=== PATIENT | male | born 1940 | race Caucasian/White ===

== ENCOUNTER 2021-01-16 12:35 | Inpatient (IN) | payer MEDICARE, SELFPAY ==
[2021-01-16] VITALS (7 sets, daily range): BP systolic 107–209; BP diastolic 57–99; PULSE 75–98; RESP 16–28; TEMP 37; O2SAT 97–99; BMI 25.7
--- NOTE | ~2021-01-16 | CT_ITS ---
EXAMINATION: CT ABDOMEN AND PELVIS WITHOUT CONTRAST CLINICAL INFORMATION: Hematuria. COMPARISON: None TECHNIQUE: Multidetector volumetric imaging was performed from the superior aspect of the liver through the pubic symphysis. Sagittal and coronal reformatted images were obtained on the technologist's workstation. This CT examination was performed using dose optimization techniques as appropriate, variously including the following: *Automated exposure control *Adjustment of mA and/or kV according to patient size (this includes techniques or standardized protocols for targeted exams where dose is matched to indication/reason for exam; i.e. extremities or head) *Use of iterative reconstruction technique DLP: 425.0 mGy-cm FINDINGS: LUNG BASES: The visualized lung bases are unremarkable. LIVER, GALLBLADDER, AND BILIARY TREE: Remarkable for hypodense intra-, perihepatic mass within the left lobe of the liver, measures 6.5 x 6.2 cm at its maximum anteroposterior by transverse dimension. Evaluation is limited on this nonenhanced study. The gallbladder is unremarkable with no evidence of radiopaque gallstones, gallbladder wall thickening, or obvious pericholecystic inflammatory changes. PANCREAS: Unremarkable. SPLEEN: Unremarkable. ADRENAL GLANDS: Left adrenal gland is thickened with Hounsfield value of -4, most consistent with lipid rich adrenal adenoma. Mild thickening of the right adrenal gland is also noted without any discrete mass. KIDNEYS AND URETERS: Both kidneys are remarkable for multiple subtle hyperdensity is seen in the region of the cortices bilaterally, consistent with nephrocalcinosis. Superimposed 1 cm punctate calcification is also noted within the medial superior calyx of the right kidney, consistent with a nonobstructing calculus. No evidence of any hydronephrosis or hydroureter on the right. The left-sided pelvicalyceal system and proximal to mid left ureter appear dilated, consistent with moderate hydroureteronephrosis likely secondary to obstruction at the ureterovesicular junction secondary to abnormal bladder. BLADDER: Markedly distended to the level of the umbilicus, shows heterogeneous hypodense mass filling of the lumen. Differential includes hyperdense neoplasm versus hemorrhage or combination thereof. Note is also made of large protruded superiormost part of the enlarged abnormal prostate. Circumferential diffuse urine bladder wall thickening is noted consistent with chronic outlet obstruction. GASTROINTESTINAL TRACT: The small and large bowel are unremarkable. The appendix is unremarkable. ABDOMINAL WALL: No significant hernia is appreciated. LYMPH NODES: Normal. VASCULAR: Unremarkable. PELVIC VISCERA: Markedly enlarged heterogeneous abnormal prostate protruding into the base of the bladder measures 8.5 x 8.2 cm. There is no evidence of any free fluid or free air present. OSSEOUS STRUCTURES: No suspicious focal lesion. CT/CT abdomen pelvis wo con IMPRESSION: 1. Abnormal noncontrast CT scan of the abdomen and pelvis, shows abnormal markedly enlarged heterogeneous prostate, protruding into the base of the bladder, causing urine bladder outlet obstruction. The bladder is also abnormal, markedly distended, projecting to the level of the umbilicus shows heterogeneous hyperdense mass filling of the almost entire lumen, may represent hemorrhagic mass versus hemorrhage or combination thereof. 2. 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 3. Thickening of the left adrenal gland with Hounsfield value of -4 most consistent with lipid rich adrenal adenoma. 4. Solid hypodense 6.5 cm mass within the left lobe of the liver, not optimally characterized. This critical result was discussed with Dr. Alarcon at 3:45 PM on 01/16/2021 and it was ascertained that the content and urgency of the report was understood at the time of direct communication.
--- NOTE | 2021-01-16 12:59 | ED.MALEGU ---
HPI - Male Genitourinary General Chief complaint: Urogenital-Male Stated complaint: URINARY PROBLEMS, ?UTI Time Seen by Provider: 01/16/21 12:59 Source: patient Limitations: no limitations History of Present Illness HPI Narrative: This is a 80-year-old male came in by ambulance after he noticed discomfort with urination today, feeling like he has to urinate more frequently, and noted blood in his urine. Patient denies any fever. He denies being on any medications. He denies any history of prostate enlargement. He denies any nausea vomiting. He has not had any abdominal or low back pain. Related Data Allergies Allergy/AdvReac Type Severity Reaction Status Date / Time No Known Allergies Allergy Verified 01/16/21 13:12 Review of Systems Review of Systems: Yes all other systems are reviewed and are negative Constitutional: Constitutional: Reports as per HPI and Denies fever(s) Eyes: Eyes: Reports as per HPI and Reports no additional eye complaints ENT: Reports system reviewed and no additional complaints, except as documented, Reports as per HPI, Denies nasal congestion, Denies nasal discharge and Denies sore throat Cardiovascular: Cardiovascular: Reports as per HPI, Denies chest pain and Denies dyspnea Respiratory: Respiratory: Reports as per HPI, Denies cough and Denies dyspnea Gastrointestinal: Gastrointestinal: Reports as per HPI, Denies abdominal pain, Denies diarrhea and Denies vomiting Genitourinary: Genitourinary: Reports as per HPI, Reports hematuria, Reports dysuria and Reports urinary frequency Musculoskeletal: Musculoskeletal: Reports no additional musculoskeletal complaints, Denies back pain and Denies numbness Integumentary/Breasts: Skin/Breast: Reports as per HPI and Denies rash Neurologic: Reports as per HPI, Denies focal weakness, Denies numbness and Denies Sensory deficit (Neuro) Psychiatric: Psychiatric: Reports no additional psychiatric complaints and Reports as per HPI Endocrine: Endocrine: Reports no additional endocrine complaints and Reports as per HPI Hematologic/Lymphatic: Hematologic/Lymphatic: Reports no additional hematologic/lymphatic complaints, Reports as per HPI and Reports other (No peripheral edema) [facility] Family History Family History (Updated 01/16/21 @ 18:01 by Eliane Buckner NP) Brother Prostate cancer Social History Social History (Updated 01/16/21 @ 18:02 by Eliane Buckner NP) Household Members: Family Patient Tobacco Use Status: Never used Tobacco Advance Directives: No Advance Directives Information Provided: Yes Physical Exam Vital Signs: Vital Signs: Last Vital Signs Temp 98.6 F 01/16/21 14:09 Pulse 97 01/16/21 16:56 Resp 16 01/16/21 16:56 BP 124/80 01/16/21 16:56 Pulse Ox 98 01/16/21 16:56 Body Mass Index 25.7 Const: General: cooperative, no acute distress and alert Orientation/consciousness: patient oriented x3 HENMT: Head: Yes normal to inspection Eyes: General: appearance normal, both eyes and all related structures Eyelids: Yes eyelids normal Conjunctivae: conjunctivae normal Pupils: Equal, round and reactive pupils present Neck: Neck: Yes normal visual inspection and Yes supple Chest: Chest palpation & inspection: normal inspection of the chest Resp: Effort & Inspection: normal respiratory effort Auscultation: clear to auscultation bilaterally Cardio: Rate: regular rate Rhythm: regular rhythm Heart sounds: S1 normal heart sound present, S2 normal heart sound present, no gallops, no murmurs and no rubs GI: Palpation (GI): Soft to palpation, nontender and Other GI palpation findings present (Non-distended) Auscultation: normal bowel sounds Skin: General skin exam: no rashes or lesions noted Neuro: General: patient oriented x3, no focal motor deficits and CN's II-XI intact bilaterally Cranial nerves: Yes Equal, round and reactive pupils present Cognition (Neuro): normal cognition Motor exam (neuro): 5/5 motor strength present throughout Sensory Exam: No Sensory deficit (Neuro) Extrem: General: Yes normal to inspection and Yes no pedal edema Psych: Appearance: grossly normal Affect: normal affect MDM - Male Genitourinary MDM Narrative Medical decision making narrative: Patient with acute gross hematuria and urinary discomfort. Patient was able to get some urine out small amounts. Patient reported no prior history of prostate problems. CT scan did show a prostate with probable mass causing bladder outlet obstruction, as well as a possible hepatic mass, possible metastatic. Patient's bladder was distended with heterogeneous material. A 3 way catheter was ordered and bladder irrigation was ordered. Nurses were unable to pass a catheter. I placed a 22 Arabic coude catheter and there was brief return of bloody urine however the catheter would not flush and no further draining occurred. For this reason it was removed. Dr. Newberry of Urology was consulted prior to realizing that the catheter was apparently nonfunctional. He agreed with admission and continuous bladder irrigation, NPO, will evaluate the patient tomorrow morning. Dr. De Jesus, another emergency physician in the department, elected to place a catheter with guidance over a wire. He was able to do this and they were subsequently was large amount of bloody urine draining. The patient was typed and screened, and repeat H&H has been ordered. The patient is being admitted to the hospitalist service, has been accepted by Dr. Madrigal. The patient was covered for UTI with Rocephin 1 g IV, also was hydrated with normal saline 1 L IV. Lab Data Attestation: I reviewed the patient's lab results. Result diagrams: 01/16/21 13:22 01/16/21 13:22 Labs: Lab Results 01/16/21 01/16/21 01/16/21 Range/Units 13:22 13:22 13:22 WBC 19.5 H (4.8-10.8) X10*3/uL RBC 3.37 L (4.60-5.80) X10*6/uL Hgb 10.4 L (14.0-18.0) g/dl Hct 30.8 L (42-52) % MCV 91.4 (80-98) fL MCH 30.9 (27.0-33.0) pg MCHC 33.8 (31.0-36.0) g/dl RDW 14.2 (11.0-16.0) % Plt Count 283 (160-400) X10*3/uL MPV 9.4 (9.4-12.4) fL Immature Gran % (Auto) 0.7 H (0.0-0.4) % Neut % (Auto) 86.6 H (45-73) % Lymph % (Auto) 7.1 L (20-40) % [place] % (Auto) 5.4 (2-11) % Eos % (Auto) 0.0 (0-4) % Baso % (Auto) 0.2 (0-2) % Lymph # (Auto) 1.4 (1.2-4.9) X10*3/uL [place] # (Auto) 1.1 (0.1-1.2) X10*3/uL Eos # (Auto) 0.0 (0.0-0.4) X10*3/uL Baso # (Auto) 0.0 (0.0-0.2) X10*3/uL Abs Immat Gran (auto) 0.13 H (0.00-0.03) X10*3/uL Absolute Neuts (auto) 16.9 H (2.0-8.3) X10*3/uL Absolute Nucleated RBC 0.000 (0.0-0.012) X10*3/uL Nucleated RBC % (auto) 0.0 (0.0-0.2) /100WBC PT (9.9-13.0) SEC INR (0.9-1.1) APTT (24.1-38.0) SEC Sodium 135 (135-145) mmol/L Potassium 4.4 (3.3-5.1) mmol/L Chloride 106 (96-108) mmol/L Carbon Dioxide 18 L (22-29) mmol/L Anion Gap 15 (12-20) BUN 29 H (9-16) mg/dL Creatinine 1.18 (0.5-1.4) mg/dL Estim Creat Clear Calc 43.2 Estimated GFR 60 Random Glucose 181 H (60-115) mg/dL Calcium 9.3 (8.4-10.2) mg/dL Total Bilirubin 0.5 (0.0-1.0) mg/dL AST 21 (5-37) U/L ALT 19 (0-40) U/L Alkaline Phosphatase 72 (39-117) U/L Total Protein 6.1 L (6.5-8.0) g/dL Albumin 3.9 (3.5-5.0) g/dL Urine Color RED Urine Appearance TURBID Urine pH 7.0 (5.0-8.0) Ur Specific [place] 1.020 (1.005-1.025) Urine Protein 3+ H (NEG-TRACE) MG/DL Urine Glucose (UA) 100 H (NEG) MG/DL Urine Ketones 5 (NEG) MG/DL Urine Blood 3+ H (NEG) Urine Nitrite POS H (NEG) Ur Leukocyte Esterase NEG (NEG) Urine RBC TNTC H (0) /HPF Urine WBC 5-9 H (0-4) /HPF Ur Squamous Epith Cells NONE /LPF Urine Bacteria TRACE /LPF COVID-19 (MANDA) (Negative) COVID-19 Clin Com 01/16/21 01/16/21 Range/Units 17:03 17:03 WBC (4.8-10.8) X10*3/uL RBC (4.60-5.80) X10*6/uL Hgb (14.0-18.0) g/dl Hct (42-52) % MCV (80-98) fL MCH (27.0-33.0) pg MCHC (31.0-36.0) g/dl RDW (11.0-16.0) % Plt Count (160-400) X10*3/uL MPV (9.4-12.4) fL Immature Gran % (Auto) (0.0-0.4) % Neut % (Auto) (45-73) % Lymph % (Auto) (20-40) % [place]ane % (Auto) (2-11) % Eos % (Auto) (0-4) % Baso % (Auto) (0-2) % Lymph # (Auto) (1.2-4.9) X10*3/uL [place] # (Auto) (0.1-1.2) X10*3/uL Eos # (Auto) (0.0-0.4) X10*3/uL Baso # (Auto) (0.0-0.2) X10*3/uL Abs Immat Gran (auto) (0.00-0.03) X10*3/uL Absolute Neuts (auto) (2.0-8.3) X10*3/uL Absolute Nucleated RBC (0.0-0.012) X10*3/uL Nucleated RBC % (auto) (0.0-0.2) /100WBC PT 13.2 H (9.9-13.0) SEC INR 1.2 H (0.9-1.1) APTT 29.6 (24.1-38.0) SEC Sodium (135-145) mmol/L Potassium (3.3-5.1) mmol/L Chloride (96-108) mmol/L Carbon Dioxide (22-29) mmol/L Anion Gap (12-20) BUN (9-16) mg/dL Creatinine (0.5-1.4) mg/dL Estim Creat Clear Calc Estimated GFR Random Glucose (60-115) mg/dL Calcium (8.4-10.2) mg/dL Total Bilirubin (0.0-1.0) mg/dL AST (5-37) U/L ALT (0-40) U/L Alkaline Phosphatase (39-117) U/L Total Protein (6.5-8.0) g/dL Albumin (3.5-5.0) g/dL Urine Color Urine Appearance Urine pH (5.0-8.0) Ur Specific [place] (1.005-1.025) Urine Protein (NEG-TRACE) MG/DL Urine Glucose (UA) (NEG) MG/DL Urine Ketones (NEG) MG/DL Urine Blood (NEG) Urine Nitrite (NEG) Ur Leukocyte Esterase (NEG) Urine RBC (0) /HPF Urine WBC (0-4) /HPF Ur Squamous Epith Cells /LPF Urine Bacteria /LPF COVID-19 (MANDA) Negative (Negative) COVID-19 Clin Com See Note Imaging Data CT of the abdomen and pelvis without IV contrast: Radiologist's impression: IMPRESSION: 1. Abnormal noncontrast CT scan of the abdomen and pelvis, shows abnormal markedly enlarged heterogeneous prostate, protruding into the base of the bladder, causing urine bladder outlet obstruction. The bladder is also abnormal, markedly distended, projecting to the level of the umbilicus shows heterogeneous hyperdense mass filling of the almost entire lumen, may represent hemorrhagic mass versus hemorrhage or combination thereof. 2. 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 3. Thickening of the left adrenal gland with Hounsfield value of -4 most consistent with lipid rich adrenal adenoma. 4. Solid hypodense 6.5 cm mass within the left lobe of the liver, not optimally characterized. Discharge Plan Discharge Clinical Impression: Hematuria, Acute urinary retention, Prostate mass Patient Disposition: Admitted As Inpatient
[2021-01-16] MEDS: 0.9 % Sodium Chloride 500 ML IV (13:23)
[2021-01-16 13:32] LABS: MANUAL DIFF FLAG NO
[2021-01-16 13:35] LABS: Basophils Percent Auto 0.2 % (0-2); Hematocrit 30.8 % (42-52); Hemoglobin 10.4 g/dl (14.0-18.0); Imm Gran Abs Auto 0.13 X10*3/uL (0.00-0.03); Imm Gran Pct Auto 0.7 % (0.0-0.4); Lymphocytes Absolute Auto 1.4 X10*3/uL (1.2-4.9); Lymphocytes Percent Auto 7.1 % (20-40); Mean Corpuscular HGB Conc 33.8 g/dl (31.0-36.0); Mean Corpuscular Hemoglobin 30.9 pg (27.0-33.0); Mean Corpuscular Volume 91.4 fL (80-98); Mean Platelet Volume 9.4 fL (9.4-12.4); Monocytes Absolute Auto 1.1 X10*3/uL (0.1-1.2); Monocytes Percent Auto 5.4 % (2-11); Neutrophils Absolute Auto 16.9 X10*3/uL (2.0-8.3); Neutrophils Percent Auto 86.6 % (45-73); Platelet Count 283 X10*3/uL (160-400); Red Blood Count 3.37 X10*6/uL (4.60-5.80); Red Cell Distribution Width 14.2 % (11.0-16.0); White Blood Count 19.5 X10*3/uL (4.8-10.8)
[2021-01-16 13:46] LABS: Glucose Urine UA 100 MG/DL (NEG); Leukocyte Esterase Urine NEG (NEG); Nitrite Urine POS (NEG); UACC Culture Trigger YES; Urine Blood 3+ (NEG); Urine Ketones 5 MG/DL (NEG); Urine Protein 3+ MG/DL (NEG-TRACE)
[2021-01-16 13:48] LABS: Appearance Urine TURBID; Color Urine RED
[2021-01-16 13:55] LABS: Bacteria Urine TRACE /LPF; RBC Urine TNTC /HPF (0)
[2021-01-16 14:00] LABS: Alanine Aminotransferase 19 U/L (0-40); Albumin Level 3.9 g/dL (3.5-5.0); Alkaline Phosphatase 72 U/L (39-117); Anion Gap 15 (12-20); Aspartate Amino Transferase 21 U/L (5-37); Bilirubin Total 0.5 mg/dL (0.0-1.0); Blood Urea Nitrogen 29 mg/dL (9-16); Calcium 9.3 mg/dL (8.4-10.2); Carbon Dioxide 18 mmol/L (22-29); Chloride 106 mmol/L (96-108); Creatinine Clr Calc Pharmacy 43.2; Estimated Glomerular Filt Rate 60; Glucose Random 181 mg/dL (60-115); Potassium 4.4 mmol/L (3.3-5.1); Sodium 135 mmol/L (135-145); Total Protein 6.1 g/dL (6.5-8.0)
[2021-01-16] MEDS: cefTRIAXone sodium 1 GM in 0.9 % Sodium Chloride 50 ML IV (14:38)
--- NOTE | 2021-01-16 16:49 | PM.EVENT ---
Event Note Date of Service: 01/16/21 Event Note: Patient seen and examined independently and was present during barcenas portion of E/M service. Agree with midlevel's history, physical, assessment, and plan. 80M with hematuria hematuria suspicious for prostate ca saucedo,
[2021-01-16 17:20] LABS: INTERNATIONAL NORM RATIO 1.2 (0.9-1.1); Prothrombin Time 13.2 SEC (9.9-13.0)
--- NOTE | 2021-01-16 17:21 | P.HPHOSP_ITS ---
History of Present Illness Date of Service: 01/16/21 Chief Complaint: Bloody urine 80 year old man presenting with increased blood in his urine that has been ongoing for the last week. He reported that he had something similar last year with dysuria, frequency and hematuria but he took something over the counter and it went away. This time however, the symptoms persisted and he decided to come to the ER to be evaluated. He has not seen a doctor in over 50 years and takes no medication. 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 He denied recent fever, chills, nausea, vomiting, diarrhea. Abdominal CT scan of the abdomen and pelvis, shows abnormal markedly enlarged heterogeneous prostate, protruding into the base of the bladder, causing urine bladder outlet obstruction. Hyperdense mass filling of the almost entire lumen, may represent hemorrhagic mass versus hemorrhage. Solid hypodense 6.5 cm mass within the left lobe of the liver, He was noted to have leukocytosis, no fever. Vital signs are stable. He was given rocephin. CBI was placed in the ED. He will be admitted for further management of hematuria, UTI Review of Systems Review of Systems: Denies any recent fever chills or decrease in appetite respiratory denies any shortness of breath coverage production cardiovascular is adjustment of any PND or edema gastrointestinal denies any dysphagia abdominal pain nausea vomiting or diarrhea genitourinary see HPI musculoskeletal denies any joint pain or swelling neuropsych denies any weakness or seizures all other systems reviewed are negative [facility] Cognitive capacity: Reports no medical problems Family History (Updated 01/16/21 @ 18:01 by Eliane Buckner NP) Brother Prostate cancer Social History (Updated 01/16/21 @ 18:02 by Eliane Buckner NP) Household Members: Family Patient Tobacco Use Status: Never used Tobacco Advance Directives: No Advance Directives Information Provided: Yes Meds Allergies Allergy/AdvReac Type Severity Reaction Status Date / Time No Known Allergies Allergy Verified 01/16/21 13:12 Physical Exam Vital Signs and Narrative: Vital Signs: Last Vital Signs Temp 98.6 F 01/16/21 14:09 Pulse 97 01/16/21 16:56 Resp 16 01/16/21 16:56 BP 124/80 01/16/21 16:56 Pulse Ox 98 01/16/21 16:56 Body Mass Index 25.7 Appearing in no acute distress head is normocephalic atraumatic eyes pupils are PERRLA sclera is anicteric mouth throat mucous membranes are intact and moist neck is supple no lymphadenopathy, no JVD noted lung sounds are clear to auscultation heart regular rate rhythm, clear S1, S2 positive bowel sounds, abdomen is soft, nontender neuro patient is alert x3, no focal deficits Results Labs CBC and Chem 7: 01/16/21 13:22 01/16/21 13:22 Labs: Laboratory Results - last 24 hr 01/16/21 01/16/21 01/16/21 13:22 13:22 13:22 MCV 91.4 MCH 30.9 MCHC 33.8 RDW 14.2 Plt Count 283 MPV 9.4 Immature Gran % (Auto) 0.7 H Neut % (Auto) 86.6 H Lymph % (Auto) 7.1 L [place] % (Auto) 5.4 Eos % (Auto) 0.0 Baso % (Auto) 0.2 Lymph # (Auto) 1.4 [place] # (Auto) 1.1 Eos # (Auto) 0.0 Baso # (Auto) 0.0 Abs Immat Gran (auto) 0.13 H Absolute Neuts (auto) 16.9 H Absolute Nucleated RBC 0.000 Nucleated RBC % (auto) 0.0 Anion Gap 15 Estim Creat Clear Calc 43.2 Estimated GFR 60 Random Glucose 181 H Calcium 9.3 Total Bilirubin 0.5 AST 21 ALT 19 Alkaline Phosphatase 72 Total Protein 6.1 L Albumin 3.9 Urine Color RED Urine Appearance TURBID Urine pH 7.0 Ur Specific [place] 1.020 Urine Protein 3+ H Urine Glucose (UA) 100 H Urine Ketones 5 Urine Blood 3+ H Urine Nitrite POS H Ur Leukocyte Esterase NEG Urine RBC TNTC H Urine WBC 5-9 H Ur Squamous Epith Cells NONE Urine Bacteria TRACE Imaging Radiologist's Impressions: Impressions Abdomen/Pelvis CT 01/16/21 13:12 IMPRESSION: 1. Abnormal noncontrast CT scan of the abdomen and pelvis, shows abnormal markedly enlarged heterogeneous prostate, protruding into the base of the bladder, causing urine bladder outlet obstruction. The bladder is also abnormal, markedly distended, projecting to the level of the umbilicus shows heterogeneous hyperdense mass filling of the almost entire lumen, may represent hemorrhagic mass versus hemorrhage or combination thereof. 2. 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 3. Thickening of the left adrenal gland with Hounsfield value of -4 most consistent with lipid rich adrenal adenoma. 4. Solid hypodense 6.5 cm mass within the left lobe of the liver, not optimally characterized. This critical result was discussed with Dr. Alarcon at 3:45 PM on 01/16/2021 and it was ascertained that the content and urgency of the report was understood at the time of direct communication. Assessment and Plan (1) Hematuria: Status: Acute 80 year old man admitted with hematuria secondary to prostate mass. A bdominal CT scan of the abdomen and pelvis, shows abnormal markedly enlarged heterogeneous prostate, protruding into the base of the bladder, causing urine bladder outlet obstruction. Hyperdense mass filling of the almost entire lumen, may represent hemorrhagic mass versus hemorrhage. Solid hypodense 6.5 cm mass within the left lobe of the liver, Hematuria. Possibly secondary to prostate mass vs hemorrhage CBI Urology to follow NPO Follow HH closely Leukocytosis . Secondary to UTI Rocephin follow urine cx Supratherapeutic INR. 1.2. Recheck PT INR in the morning continues to be elevated may need vitamin K in light of hematuria DVT prophylaxis with kathleen soto Attending Dr. Madrigal Full code Quality Stroke Does the patient have a stroke diagnosis?: No VTE Prior VTE?: No VTE Risk Level:: Medical - moderate - high VTE Device Contraindication: N/A - Device Ordered VTE Drug Contraindication: Treatment Not Indicated
[2021-01-16 17:23] LABS: Partial Thromboplastin Time 29.6 SEC (24.1-38.0)
[2021-01-16 17:38] LABS: COVID-19 Test Negative (Negative)
--- NOTE | 2021-01-16 18:42 | PC.NURSE ---
Dr. De Jesus placed [address] saucedo, large amounts of blood approx 300 ml blood noted, large clots. CBI initiated and draining light red blood. PT denies complaints or needs.
[2021-01-16 19:07] LABS: Hematocrit 27.4 % (42-52); Hemoglobin 9.4 g/dl (14.0-18.0)
--- NOTE | 2021-01-16 19:07 | PC.NURSE ---
3L given at this time, 4L of urine voided
--- NOTE | 2021-01-16 20:17 | PC.NURSE ---
6L given through CBI, 7.5L ouput.
[2021-01-16 20:46] LABS: Hematocrit 26.7 % (42-52); Hemoglobin 9.3 g/dl (14.0-18.0)
--- NOTE | 2021-01-16 22:56 | PC.NURSE ---
9L given through continuous irrigation, 10.5L urinary output.
[2021-01-17] VITALS (14 sets, daily range): BP systolic 102–160; BP diastolic 51–76; PULSE 61–97; RESP 15–20; TEMP 36.2–37.3; O2SAT 96–100; BMI 21.9; BMI 23.8
--- NOTE | 2021-01-17 00:24 | PC.NURSE ---
2500ml eptied from bag. report given to rn, pt ready for transport.
--- NOTE | 2021-01-17 01:14 | PC.NURSE ---
bag #10 in or 3000ml and 1000 ml out from saucedo.
[2021-01-17] MEDS: 0.9 % Sodium Chloride Flush 3 ML SYRINGE IVFLUSH ×3 (03:18→17:14)
[2021-01-17 06:50] LABS: Hematocrit 25.4 % (42-52); Hemoglobin 8.5 g/dl (14.0-18.0); Mean Corpuscular HGB Conc 33.5 g/dl (31.0-36.0); Mean Corpuscular Volume 92.7 fL (80-98); Mean Platelet Volume 9.6 fL (9.4-12.4); Platelet Count 235 X10*3/uL (160-400); Red Blood Count 2.74 X10*6/uL (4.60-5.80); Red Cell Distribution Width 14.7 % (11.0-16.0); White Blood Count 23.8 X10*3/uL (4.8-10.8)
[2021-01-17 07:09] LABS: INTERNATIONAL NORM RATIO 1.1 (0.9-1.1); Prothrombin Time 12.5 SEC (9.9-13.0)
[2021-01-17 07:16] LABS: Estimated Average Glucose 91 mg/dL; Hemoglobin A1c % 4.8 %
[2021-01-17 07:17] LABS: Alanine Aminotransferase 15 U/L (0-40); Albumin Level 3.5 g/dL (3.5-5.0); Alkaline Phosphatase 64 U/L (39-117); Aspartate Amino Transferase 19 U/L (5-37); Bilirubin Direct 0.2 mg/dL (0.0-0.5); Bilirubin Total 0.5 mg/dL (0.0-1.0); Total Protein 5.6 g/dL (6.5-8.0)
[2021-01-17 07:21] LABS: Anion Gap 16 (12-20); Blood Urea Nitrogen 28 mg/dL (9-16); Calcium 8.6 mg/dL (8.4-10.2); Carbon Dioxide 19 mmol/L (22-29); Chloride 107 mmol/L (96-108); Cholesterol 155 mg/dL; Creatinine Clr Calc Pharmacy 58.5; Estimated Glomerular Filt Rate > 60; Glucose Random 112 mg/dL (60-115); HDL Cholesterol 40 mg/dL; LDL Cholesterol Calculated 101 mg/dl; Potassium 4.8 mmol/L (3.3-5.1); Sodium 137 mmol/L (135-145); Triglycerides 70 mg/dL
[2021-01-17 07:39] LABS: SLIDE REVIEW MANUAL DIFF; TSH reflex Free T4 0.35 uIU/mL (0.32-4.0)
[2021-01-17 07:42] LABS: Band Neutrophils Percent 0 % (3-5); Lymphocytes Percent Manual 4 % (20-40); Monocytes Absolute Manual 2.4 X10*3/uL (0.0-1.2); Monocytes Percent Manual 10 % (2-11); Neutrophils Absolute Manual 20.5 X10*3/uL (2.2-7.9); Neutrophils Percent Manual 86 % (45-73)
[2021-01-17 07:44] LABS: Burr Cells 1+ (0-2) /OIF; Platelet Estimate NORMAL (NORMAL); Platelet Morphology Comment NORMAL; RBC Morphology NOTED
[2021-01-17] MEDS: cefTRIAXone sodium 1 GM in 0.9 % Sodium Chloride 50 ML IV (09:10)
--- NOTE | 2021-01-17 09:27 | MHC.CM.PN ---
IMM 01/17/21 Male 80 DX Hematuria. He lives with his Mother. He is independent all functional mobility. He does not have a PCP[place] [facility] [place]. A HCP has been completed and on file. DP home no services family will provide transportation. CM will follow for assessment a change in needs at [place].
--- NOTE | 2021-01-17 11:10 | PM.UROCN ---
History of Present Illness Consult details Consult date: 01/17/21 Narrative: Torito is a 80-year-old male. Admitted through the emergency room on Sunday. Initial presentation with 1 week of intermittent hematuria. Not associated with fever, chills Had noticed gradual weakening of stream over the prior number of months Never had prostate management previously Has not seen a doctor in [address] imaging reviewed Bladder with bladder wall thickening and heterogeneous fluid within bladder likely representing hematuria. Large protuberant prostate. Discussion with Torito and recommendation for cystoscopy, clot evacuation, possible prostate procedure. Questions were answered. He would like to proceed. Has received antibiotics for 48 hours Review of Systems Constitutional: Constitutional: Denies chills and Denies fever(s) Cardiovascular: Cardiovascular: Reports no additional cardiovascular complaints and Denies syncope Respiratory: Respiratory: Denies cough Gastrointestinal: Gastrointestinal: Denies abdominal pain and Denies heartburn Genitourinary: Genitourinary: Reports as per HPI and Denies change in libido Neurologic: Denies syncope Psychiatric: Psychiatric: Denies change in libido Endocrine: Endocrine: Denies change in libido [facility] Past Medical History Medical History Gluten free diet Family History Family History (Updated 01/16/21 @ 18:01 by Eliane Buckner NP) Brother Prostate cancer Social History Social History (Updated 01/16/21 @ 18:02 by Eliane Buckner NP) Household Members: Family Housing: House Do you presently have visiting nurse or other home services: No Patient Tobacco Use Status: Former Tobacco user Quit Date: when pt was [age] yrs old Years Smoked: 3 Use of substances other than those prescribed or required for medical reasons: No Currently Displaying Signs/Symptoms of Drug Intoxication Withdrawal: No Any prior treatment program specific to substance use: No Have you been hit, kicked, punched, or otherwise hurt by someone within the past year? If so, by whom?: No Do you feel safe in your current relationship?: No Current Relationship Is there a partner from a previous relationship who is making you feel unsafe now?: No Are you made to feel afraid or neglected: No Advance Directives: No Advance Directives Information Provided: Yes Advance Directives on File: No Do you have thoughts of harming others: None Do you have a plan to hurt others: No Plan Recently lost weight without trying: No Poor oral hygiene: No service: No Current occupational status: retired Meds Allergies Allergy/AdvReac Type Severity Reaction Status Date / Time No Known Allergies Allergy Verified 01/16/21 13:12 Active Medications: Current Medications Generic Name Dose Route Start Last Admin Trade Name Freq PRN Reason Stop Dose Admin Acetaminophen 650 mg 01/16/21 18:05 Acetaminophen 325 Mg Tablet PO Q6H PRN Pain, Mild (Pain Scale 1-3) Ceftriaxone Sodium 1 gm/ 50 mls @ 100 mls/hr 01/17/21 08:15 01/17/21 09:50 Sodium Chloride IV Infused Q24H RAY Infusion Ondansetron HCl 4 mg 01/16/21 18:05 Ondansetron Hcl 4 Mg/2 Ml Vial IVPUSH Q8H PRN Nausea and Vomiting Sodium Chloride 3 ml 01/17/21 00:00 01/17/21 07:30 0.9 % Sodium Chloride Flush 3 Ml Syringe IVFLUSH 3 ml QSHIFT RAY Administration Physical Exam Vital Signs: Vital Signs: Last Vital Signs Temp 97.9 F 01/17/21 07:22 Pulse 97 01/17/21 07:22 Resp 20 01/17/21 07:22 BP 160/72 H 01/17/21 07:22 Pulse Ox 98 01/17/21 07:22 Body Mass Index 23.8 Const: General: cooperative, healthy appearing, comfortable and no acute distress Orientation/consciousness: patient oriented x3 HENMT: Face and sinus: Yes normal facial exam Mouth: moist mucous membranes Neck: Neck: Yes normal visual inspection, Yes full ROM and Yes trachea midline Chest: Chest palpation & inspection: normal inspection of the chest Resp: Effort & Inspection: normal respiratory effort, able to speak in complete sentences and no respiratory distress GI: Inspection: Yes normal to inspection Back/Spine/Pelvis: Cervical Spine: normal cervical lordosis Thoracic/Lumbar Spine: thoracic and lumbar spine normal to inspection Skin: General skin exam: no rashes or lesions noted Neuro: General: patient oriented x3, gait normal, tone normal and moves all extremities Extrem: General: Yes normal to inspection and Yes capillary refill normal Results Labs Result diagrams: 01/17/21 05:16 01/17/21 05:16 Labs: Abnormal lab results 01/16/21 01/16/21 01/16/21 Range/Units 13:22 13:22 13:22 WBC 19.5 H (4.8-10.8) X10*3/uL RBC 3.37 L (4.60-5.80) X10*6/uL Hgb 10.4 L (14.0-18.0) g/dl Hct 30.8 L (42-52) % Immature Gran % (Auto) 0.7 H (0.0-0.4) % Neut % (Auto) 86.6 H (45-73) % Lymph % (Auto) 7.1 L (20-40) % Abs Immat Gran (auto) 0.13 H (0.00-0.03) X10*3/uL Absolute Neuts (auto) 16.9 H (2.0-8.3) X10*3/uL Neutrophils % (Manual) (45-73) % Band Neutrophils % (3-5) % Lymphocytes % (Manual) (20-40) % Abs Neuts (Manual) (2.2-7.9) X10*3/uL Monocytes # (Manual) (0.0-1.2) X10*3/uL PT (9.9-13.0) SEC INR (0.9-1.1) Carbon Dioxide 18 L (22-29) mmol/L BUN 29 H (9-16) mg/dL Random Glucose 181 H (60-115) mg/dL Total Protein 6.1 L (6.5-8.0) g/dL Urine Protein 3+ H (NEG-TRACE) MG/DL Urine Glucose (UA) 100 H (NEG) MG/DL Urine Blood 3+ H (NEG) Urine Nitrite POS H (NEG) Urine RBC TNTC H (0) /HPF Urine WBC 5-9 H (0-4) /HPF 01/16/21 01/16/21 01/16/21 Range/Units 17:03 18:51 20:40 WBC (4.8-10.8) X10*3/uL RBC (4.60-5.80) X10*6/uL Hgb 9.4 L 9.3 L (14.0-18.0) g/dl Hct 27.4 L 26.7 L (42-52) % Immature Gran % (Auto) (0.0-0.4) % Neut % (Auto) (45-73) % Lymph % (Auto) (20-40) % Abs Immat Gran (auto) (0.00-0.03) X10*3/uL Absolute Neuts (auto) (2.0-8.3) X10*3/uL Neutrophils % (Manual) (45-73) % Band Neutrophils % (3-5) % Lymphocytes % (Manual) (20-40) % Abs Neuts (Manual) (2.2-7.9) X10*3/uL Monocytes # (Manual) (0.0-1.2) X10*3/uL PT 13.2 H (9.9-13.0) SEC INR 1.2 H (0.9-1.1) Carbon Dioxide (22-29) mmol/L BUN (9-16) mg/dL Random Glucose (60-115) mg/dL Total Protein (6.5-8.0) g/dL Urine Protein (NEG-TRACE) MG/DL Urine Glucose (UA) (NEG) MG/DL Urine Blood (NEG) Urine Nitrite (NEG) Urine RBC (0) /HPF Urine WBC (0-4) /HPF 01/17/21 01/17/21 01/17/21 Range/Units 05:16 05:16 05:16 WBC 23.8 H (4.8-10.8) X10*3/uL RBC 2.74 L (4.60-5.80) X10*6/uL Hgb 8.5 L (14.0-18.0) g/dl Hct 25.4 L (42-52) % Immature Gran % (Auto) (0.0-0.4) % Neut % (Auto) (45-73) % Lymph % (Auto) (20-40) % Abs Immat Gran (auto) (0.00-0.03) X10*3/uL Absolute Neuts (auto) (2.0-8.3) X10*3/uL Neutrophils % (Manual) 86 H (45-73) % Band Neutrophils % 0 L (3-5) % Lymphocytes % (Manual) 4 L (20-40) % Abs Neuts (Manual) 20.5 H (2.2-7.9) X10*3/uL Monocytes # (Manual) 2.4 H (0.0-1.2) X10*3/uL PT (9.9-13.0) SEC INR (0.9-1.1) Carbon Dioxide 19 L (22-29) mmol/L BUN 28 H (9-16) mg/dL Random Glucose (60-115) mg/dL Total Protein 5.6 L (6.5-8.0) g/dL Urine Protein (NEG-TRACE) MG/DL Urine Glucose (UA) (NEG) MG/DL Urine Blood (NEG) Urine Nitrite (NEG) Urine RBC (0) /HPF Urine WBC (0-4) /HPF Short CBC 01/16/21 01/16/21 01/16/21 Range/Units 13:22 18:51 20:40 WBC 19.5 H (4.8-10.8) X10*3/uL Hgb 10.4 L 9.4 L 9.3 L (14.0-18.0) g/dl Hct 30.8 L 27.4 L 26.7 L (42-52) % Plt Count 283 (160-400) X10*3/uL 01/17/21 Range/Units 05:16 WBC 23.8 H (4.8-10.8) X10*3/uL Hgb 8.5 L (14.0-18.0) g/dl Hct 25.4 L (42-52) % Plt Count 235 (160-400) X10*3/uL BMP 01/16/21 01/17/21 13:22 05:16 Sodium 135 137 Potassium 4.4 4.8 Chloride 106 107 Carbon Dioxide 18 L 19 L BUN 29 H 28 H Creatinine 1.18 0.87 Calcium 9.3 8.6 D Liver Function 01/16/21 01/17/21 Range/Units 13:22 05:16 Total Bilirubin 0.5 0.5 (0.0-1.0) mg/dL Direct Bilirubin 0.2 (0.0-0.5) mg/dL AST 21 19 (5-37) U/L ALT 19 15 (0-40) U/L Alkaline Phosphatase 72 64 (39-117) U/L Albumin 3.9 3.5 (3.5-5.0) g/dL Urine 01/16/21 Range/Units 13:22 Urine Color RED Urine Appearance TURBID Urine pH 7.0 (5.0-8.0) Ur Specific [place] 1.020 (1.005-1.025) Urine Protein 3+ H (NEG-TRACE) MG/DL Urine Glucose (UA) 100 H (NEG) MG/DL All other labs normal. Assessment and Plan (1) Hematuria: Status: Acute (2) Acute urinary retention: Status: Acute (3) Prostate mass: Status: Acute Cystoscopy, clot of action, prostate procedure We discussed the nature of the decision and reasonable options for performing a prostate intervention. Interventions include TURP, laser enucleation of the prostate, laser ablation of the prostate, transurethral incision of the prostate. The relative uncertainties and benefits related to each alternate procedure were adequately discussed. General surgical risks including, but not limited to, pain, bleeding, infection, myocardial infarction, pulmonary embolus, deep vein thrombosis and cerebrovascular accident which may result in further hospitalization were discussed. Full disclosure of the procedure as well as all major risks, benefits and complications were discussed including but not limited to damage to the urethra or bladder neck, recurrent BPH, retrograde ejaculation, bladder infection, urge, de sudarshan frequency, incomplete emptying, dysuria, remote chance of erectile dysfunction, epididymitis, and meatal stenosis. The success rate of the procedure was discussed. Success of the procedure in the short-term does not necessarily guarantee that long-term success will be maintained. Suitable follow up will need to be maintained. The patient showed understanding of discussion. An opportunity was provided for questions to be answered and wishes to proceed as above. Clot evacuation, prostate procedure likely [facility] laser Procedures Date of Service Date of Service: 01/17/21
[2021-01-17 11:20] LABS: Prostate Specific Antigen 66.55 ng/mL (<0.05-4.0)
[2021-01-17] MEDS: Lactated Ringers 500 ML 20 ML IVCONT (11:20)
--- NOTE | 2021-01-17 11:49 | P.CONAN_ITS ---
[facility] Active Problems Active Problems: All Active Problems (Updated 01/17/21 @ 01:53 by Merlyn Islas RN) Hematuria (Acute) Acute urinary retention (Acute) Prostate mass (Acute) Past Medical History Medical History Gluten free diet Family History Family History Brother Prostate cancer Social History Social History Household Members: Family Housing: House Do you presently have visiting nurse or other home services: No Patient Tobacco Use Status: Former Tobacco user Quit Date: when pt was 19-19 yrs old Tobacco use type: Cigarette Years Smoked: 5 Smoked in Last 30 Days: No Use of substances other than those prescribed or required for medical reasons: No Currently Displaying Signs/Symptoms of Drug Intoxication Withdrawal: No Any prior treatment program specific to substance use: No Have you been hit, kicked, punched, or otherwise hurt by someone within the past year? If so, by whom?: No Do you feel safe in your current relationship?: No Current Relationship Is there a partner from a previous relationship who is making you feel unsafe now?: No Are you made to feel afraid or neglected: No Are you DNR?: No Advance Directives: No Advance Directives Information Provided: Yes Advance Directives on File: No Do you have thoughts of harming others: None Do you have a plan to hurt others: No Plan Recently lost weight without trying: No Poor oral hygiene: No service: No Current occupational status: retired Meds Allergies Allergy/AdvReac Type Severity Reaction Status Date / Time bee pollen [bee stings] Allergy Swelling Verified 01/17/21 11:36 Active Medications: Current Medications Generic Name Dose Route Start Last Admin Trade Name Freq PRN Reason Stop Dose Admin Acetaminophen 650 mg 01/16/21 18:05 Acetaminophen 325 Mg Tablet PO Q6H PRN Pain, Mild (Pain Scale 1-3) Ceftriaxone Sodium 1 gm/ 50 mls @ 100 mls/hr 01/17/21 08:15 01/17/21 09:50 Sodium Chloride IV Infused Q24H RAY Infusion Levofloxacin 500 mg in 100 mls @ 100 mls/hr 01/17/21 11:30 Levaquin IV 01/17/21 12:29 PREOP ONE Ondansetron HCl 4 mg 01/16/21 18:05 Ondansetron Hcl 4 Mg/2 Ml Vial IVPUSH Q8H PRN Nausea and Vomiting Sodium Chloride 3 ml 01/17/21 00:00 01/17/21 07:30 0.9 % Sodium Chloride Flush 3 Ml Syringe IVFLUSH 3 ml QSHIFT RAY Administration Exam Exam Date and Time: January 17, 2021 1149 Height,Weight and Vital Signs: Height 5 ft 4 in Weight 62.8 kg Last Vital Signs Temp 99.2 F 01/17/21 11:38 Pulse 83 01/17/21 11:38 Resp 16 01/17/21 11:38 BP 149/76 H 01/17/21 11:38 Pulse Ox 97 01/17/21 11:38 Pertinent Lab Results Pertinent Lab Results: Laboratory Tests 01/16/21 01/16/21 01/16/21 13:22 13:22 13:22 WBC 19.5 H RBC 3.37 L Hgb 10.4 L Hct 30.8 L MCV 91.4 MCH 30.9 MCHC 33.8 RDW 14.2 Plt Count 283 MPV 9.4 Immature Gran % (Auto) 0.7 H Neut % (Auto) 86.6 H Lymph % (Auto) 7.1 L [place] % (Auto) 5.4 Eos % (Auto) 0.0 Baso % (Auto) 0.2 Lymph # (Auto) 1.4 [place] # (Auto) 1.1 Eos # (Auto) 0.0 Baso # (Auto) 0.0 Abs Immat Gran (auto) 0.13 H Absolute Neuts (auto) 16.9 H Absolute Nucleated RBC 0.000 Nucleated RBC % (auto) 0.0 Neutrophils % (Manual) Band Neutrophils % Lymphocytes % (Manual) Monocytes % (Manual) Abs Neuts (Manual) Lymphocytes # (Manual) Monocytes # (Manual) Platelet Estimate Plt Morphology Comment RBC Morphology [place] Cells Smear Tech's Comments PT INR APTT Sodium 135 Potassium 4.4 Chloride 106 Carbon Dioxide 18 L Anion Gap 15 BUN 29 H Creatinine 1.18 Estim Creat Clear Calc 43.2 Estimated GFR 60 Random Glucose 181 H Estimat Average Glucose Hemoglobin A1c % Calcium 9.3 Total Bilirubin 0.5 Direct Bilirubin AST 21 ALT 19 Alkaline Phosphatase 72 Total Protein 6.1 L Albumin 3.9 Triglycerides Cholesterol LDL Cholesterol, Calc HDL Cholesterol Prostate Specific Ag TSH Urine Color RED Urine Appearance TURBID Urine pH 7.0 Ur Specific [place] 1.020 Urine Protein 3+ H Urine Glucose (UA) 100 H Urine Ketones 5 Urine Blood 3+ H Urine Nitrite POS H Ur Leukocyte Esterase NEG Urine RBC TNTC H Urine WBC 5-9 H Ur Squamous Epith Cells NONE Urine Bacteria TRACE COVID-19 (MANDA) COVID-19 Clin Com Blood Type Antibody Screen 01/16/21 01/16/21 01/16/21 17:03 17:03 18:51 WBC RBC Hgb 9.4 L Hct 27.4 L MCV MCH MCHC RDW Plt Count MPV Immature Gran % (Auto) Neut % (Auto) Lymph % (Auto) [place] % (Auto) Eos % (Auto) Baso % (Auto) Lymph # (Auto) [place] # (Auto) Eos # (Auto) Baso # (Auto) Abs Immat Gran (auto) Absolute Neuts (auto) Absolute Nucleated RBC Nucleated RBC % (auto) Neutrophils % (Manual) Band Neutrophils % Lymphocytes % (Manual) Monocytes % (Manual) Abs Neuts (Manual) Lymphocytes # (Manual) Monocytes # (Manual) Platelet Estimate Plt Morphology Comment RBC Morphology [place] Cells Smear Tech's Comments PT 13.2 H INR 1.2 H APTT 29.6 Sodium Potassium Chloride Carbon Dioxide Anion Gap BUN Creatinine Estim Creat Clear Calc Estimated GFR Random Glucose Estimat Average Glucose Hemoglobin A1c % Calcium Total Bilirubin Direct Bilirubin AST ALT Alkaline Phosphatase Total Protein Albumin Triglycerides Cholesterol LDL Cholesterol, Calc HDL Cholesterol Prostate Specific Ag TSH Urine Color Urine Appearance Urine pH Ur Specific [place] Urine Protein Urine Glucose (UA) Urine Ketones Urine Blood Urine Nitrite Ur Leukocyte Esterase Urine RBC Urine WBC Ur Squamous Epith Cells Urine Bacteria COVID-19 (MANDA) Negative COVID-19 Clin Com See Note Blood Type Antibody Screen 01/16/21 01/16/21 01/17/21 18:54 20:40 05:16 WBC 23.8 H RBC 2.74 L Hgb 9.3 L 8.5 L Hct 26.7 L 25.4 L MCV 92.7 MCH 31.0 MCHC 33.5 RDW 14.7 Plt Count 235 MPV 9.6 Immature Gran % (Auto) Cancelled Neut % (Auto) Cancelled Lymph % (Auto) Cancelled [place] % (Auto) Cancelled Eos % (Auto) Cancelled Baso % (Auto) Cancelled Lymph # (Auto) Cancelled [place] # (Auto) Cancelled Eos # (Auto) Cancelled Baso # (Auto) Cancelled Abs Immat Gran (auto) Cancelled Absolute Neuts (auto) Cancelled Absolute Nucleated RBC 0.000 Nucleated RBC % (auto) 0.0 Neutrophils % (Manual) 86 H Band Neutrophils % 0 L Lymphocytes % (Manual) 4 L Monocytes % (Manual) 10 Abs Neuts (Manual) 20.5 H Lymphocytes # (Manual) 1.0 Monocytes # (Manual) 2.4 H Platelet Estimate NORMAL Plt Morphology Comment NORMAL RBC Morphology NOTED [place] Cells 1+ (0-2) Smear Tech's Comments MANUAL DIFF PT INR APTT Sodium Potassium Chloride Carbon Dioxide Anion Gap BUN Creatinine Estim Creat Clear Calc Estimated GFR Random Glucose Estimat Average Glucose Hemoglobin A1c % Calcium Total Bilirubin Direct Bilirubin AST ALT Alkaline Phosphatase Total Protein Albumin Triglycerides Cholesterol LDL Cholesterol, Calc HDL Cholesterol Prostate Specific Ag TSH Urine Color Urine Appearance Urine pH Ur Specific [place] Urine Protein Urine Glucose (UA) Urine Ketones Urine Blood Urine Nitrite Ur Leukocyte Esterase Urine RBC Urine WBC Ur Squamous Epith Cells Urine Bacteria COVID-19 (MANDA) COVID-19 Clin Com Blood Type O Positive Antibody Screen NEGATIVE 01/17/21 01/17/21 01/17/21 05:16 05:16 05:16 WBC RBC Hgb Hct MCV MCH MCHC RDW Plt Count MPV Immature Gran % (Auto) Neut % (Auto) Lymph % (Auto) [place] % (Auto) Eos % (Auto) Baso % (Auto) Lymph # (Auto) [place] # (Auto) Eos # (Auto) Baso # (Auto) Abs Immat Gran (auto) Absolute Neuts (auto) Absolute Nucleated RBC Nucleated RBC % (auto) Neutrophils % (Manual) Band Neutrophils % Lymphocytes % (Manual) Monocytes % (Manual) Abs Neuts (Manual) Lymphocytes # (Manual) Monocytes # (Manual) Platelet Estimate Plt Morphology Comment RBC Morphology [place] Cells Smear Tech's Comments PT INR APTT Sodium 137 Potassium 4.8 Chloride 107 Carbon Dioxide 19 L Anion Gap 16 BUN 28 H Creatinine 0.87 Estim Creat Clear Calc 58.5 Estimated GFR > 60 Random Glucose 112 D Estimat Average Glucose 91 Hemoglobin A1c % 4.8 Calcium 8.6 D Total Bilirubin 0.5 Direct Bilirubin 0.2 AST 19 ALT 15 Alkaline Phosphatase 64 Total Protein 5.6 L Albumin 3.5 Triglycerides 70 Cholesterol 155 LDL Cholesterol, Calc 101 HDL Cholesterol 40 Prostate Specific Ag 66.55 H TSH 0.35 Urine Color Urine Appearance Urine pH Ur Specific [place] Urine Protein Urine Glucose (UA) Urine Ketones Urine Blood Urine Nitrite Ur Leukocyte Esterase Urine RBC Urine WBC Ur Squamous Epith Cells Urine Bacteria COVID-19 (MANDA) COVID-19 Clin Com Blood Type Antibody Screen 01/17/21 05:16 WBC RBC Hgb Hct MCV MCH MCHC RDW Plt Count MPV Immature Gran % (Auto) Neut % (Auto) Lymph % (Auto) [place] % (Auto) Eos % (Auto) Baso % (Auto) Lymph # (Auto) [place] # (Auto) Eos # (Auto) Baso # (Auto) Abs Immat Gran (auto) Absolute Neuts (auto) Absolute Nucleated RBC Nucleated RBC % (auto) Neutrophils % (Manual) Band Neutrophils % Lymphocytes % (Manual) Monocytes % (Manual) Abs Neuts (Manual) Lymphocytes # (Manual) Monocytes # (Manual) Platelet Estimate Plt Morphology Comment RBC Morphology [place] Cells Smear Tech's Comments PT 12.5 INR 1.1 APTT Sodium Potassium Chloride Carbon Dioxide Anion Gap BUN Creatinine Estim Creat Clear Calc Estimated GFR Random Glucose Estimat Average Glucose Hemoglobin A1c % Calcium Total Bilirubin Direct Bilirubin AST ALT Alkaline Phosphatase Total Protein Albumin Triglycerides Cholesterol LDL Cholesterol, Calc HDL Cholesterol Prostate Specific Ag TSH Urine Color Urine Appearance Urine pH Ur Specific [place] Urine Protein Urine Glucose (UA) Urine Ketones Urine Blood Urine Nitrite Ur Leukocyte Esterase Urine RBC Urine WBC Ur Squamous Epith Cells Urine Bacteria COVID-19 (MANDA) COVID-19 Clin Com Blood Type Antibody Screen Airway Mallampati Class: II TM Dist: >3cm Neck ROM: Full Assessment and Plan Assessment Anesthesia Assessment: Anesthesia Plan Discussed and Chart Reviewed Final Anesthetic Review NPO: Yes ASA Class: II Final Preanesthetic Review: No Changes in Pt Med Stat, Meds/Allgs Chart Reviewed, Consent Obtained/Reviewed and Anes Risks/Benef Reviewed Patient Risk: Low Procedure Risk: Low Assessment/Block/Sedation in SS: Assess/Block/Sedation-SS Anesthetic Plan Anesthetic Plan: GA Disposition: Standard PACU
--- NOTE | 2021-01-17 11:57 | P.PNIM_ITS ---
Subjective Subjective Date of Service: 01/17/21 Interval History: Follow up hematuria CBI Down to OR for urological procedure Physical Exam Vital Signs: Vital Signs: Last Vital Signs Temp 99.2 F 01/17/21 11:38 Pulse 83 01/17/21 11:38 Resp 16 01/17/21 11:38 BP 149/76 H 01/17/21 11:38 Pulse Ox 97 01/17/21 11:38 Body Mass Index 23.8 Appearing in no acute distress lung sounds are clear to auscultation heart regular rate rhythm, clear S1, S2 positive bowel sounds, abdomen is soft, nontender neuro patient is alert x3, no focal deficits Objective Data Current Medications Generic Name Dose Route Start Last Admin Trade Name Freq PRN Reason Stop Dose Admin Acetaminophen 650 mg 01/16/21 18:05 Acetaminophen 325 Mg Tablet PO Q6H PRN Pain, Mild (Pain Scale 1-3) Acetaminophen 650 mg 01/17/21 11:53 Acetaminophen 325 Mg Tablet PO ONCE PRN Pain, Mild (Pain Scale 1-3) Fentanyl 50 mcg 01/17/21 11:53 Fentanyl Citrate/Pf 100 Mcg/2 Ml Vial IVPUSH Q5M PRN Pain, Severe (Pain Scale 7-10) Ceftriaxone Sodium 1 gm/ 50 mls @ 100 mls/hr 01/17/21 08:15 01/17/21 09:50 Sodium Chloride IV Infused Q24H RAY Infusion Levofloxacin 500 mg in 100 mls @ 100 mls/hr 01/17/21 11:30 Levaquin IV 01/17/21 12:29 PREOP ONE Ondansetron HCl 4 mg 01/16/21 18:05 Ondansetron Hcl 4 Mg/2 Ml Vial IVPUSH Q8H PRN Nausea and Vomiting Ondansetron HCl 4 mg 01/17/21 11:53 Ondansetron Hcl 4 Mg/2 Ml Vial IVPUSH ONCE PRN Nausea and Vomiting Oxycodone HCl 5 mg 01/17/21 11:53 Oxycodone Hcl Immed Release 5 Mg Tablet PO ONCE PRN Pain, Severe (Pain Scale 7-10) Sodium Chloride 3 ml 01/17/21 00:00 01/17/21 07:30 0.9 % Sodium Chloride Flush 3 Ml Syringe IVFLUSH 3 ml QSHIFT [facility] Administration Labs CBC & Chem 7: 01/17/21 05:16 01/17/21 05:16 Labs: Laboratory Results - last 24 hr 01/16/21 01/16/21 01/16/21 13:22 13:22 13:22 MCV 91.4 MCH 30.9 MCHC 33.8 RDW 14.2 Plt Count 283 MPV 9.4 Immature Gran % (Auto) 0.7 H Neut % (Auto) 86.6 H Lymph % (Auto) 7.1 L [facility] % (Auto) 5.4 Eos % (Auto) 0.0 Baso % (Auto) 0.2 Lymph # (Auto) 1.4 [facility] # (Auto) 1.1 Eos # (Auto) 0.0 Baso # (Auto) 0.0 Abs Immat Gran (auto) 0.13 H Absolute Neuts (auto) 16.9 H Absolute Nucleated RBC 0.000 Nucleated RBC % (auto) 0.0 Neutrophils % (Manual) Band Neutrophils % Lymphocytes % (Manual) Monocytes % (Manual) Abs Neuts (Manual) Lymphocytes # (Manual) Monocytes # (Manual) Platelet Estimate Plt Morphology Comment RBC Morphology Johan Cells Smear Tech's Comments PT INR APTT Anion Gap 15 Estim Creat Clear Calc 43.2 Estimated GFR 60 Random Glucose 181 H Estimat Average Glucose Hemoglobin A1c % Calcium 9.3 Total Bilirubin 0.5 Direct Bilirubin AST 21 ALT 19 Alkaline Phosphatase 72 Total Protein 6.1 L Albumin 3.9 Triglycerides Cholesterol LDL Cholesterol, Calc HDL Cholesterol Prostate Specific Ag TSH Urine Color RED Urine Appearance TURBID Urine pH 7.0 Ur Specific [place] 1.020 Urine Protein 3+ H Urine Glucose (UA) 100 H Urine Ketones 5 Urine Blood 3+ H Urine Nitrite POS H Ur Leukocyte Esterase NEG Urine RBC TNTC H Urine WBC 5-9 H Ur Squamous Epith Cells NONE Urine Bacteria TRACE COVID-19 (MANDA) COVID-19 Clin Com Blood Type Antibody Screen 01/16/21 01/16/21 01/16/21 17:03 17:03 18:54 MCV MCH MCHC RDW Plt Count MPV Immature Gran % (Auto) Neut % (Auto) Lymph % (Auto) [facility] % (Auto) Eos % (Auto) Baso % (Auto) Lymph # (Auto) [facility] # (Auto) Eos # (Auto) Baso # (Auto) Abs Immat Gran (auto) Absolute Neuts (auto) Absolute Nucleated RBC Nucleated RBC % (auto) Neutrophils % (Manual) Band Neutrophils % Lymphocytes % (Manual) Monocytes % (Manual) Abs Neuts (Manual) Lymphocytes # (Manual) Monocytes # (Manual) Platelet Estimate Plt Morphology Comment RBC Morphology [place] Cells Smear Tech's Comments PT 13.2 H INR 1.2 H APTT 29.6 Anion Gap Estim Creat Clear Calc Estimated GFR Random Glucose Estimat Average Glucose Hemoglobin A1c % Calcium Total Bilirubin Direct Bilirubin AST ALT Alkaline Phosphatase Total Protein Albumin Triglycerides Cholesterol LDL Cholesterol, Calc HDL Cholesterol Prostate Specific Ag TSH Urine Color Urine Appearance Urine pH Ur Specific [place] Urine Protein Urine Glucose (UA) Urine Ketones Urine Blood Urine Nitrite Ur Leukocyte Esterase Urine RBC Urine WBC Ur Squamous Epith Cells Urine Bacteria COVID-19 (MANDA) Negative COVID-19 Clin Com See Note Blood Type O Positive Antibody Screen NEGATIVE 01/17/21 01/17/21 01/17/21 05:16 05:16 05:16 MCV 92.7 MCH 31.0 MCHC 33.5 RDW 14.7 Plt Count 235 MPV 9.6 Immature Gran % (Auto) Cancelled Neut % (Auto) Cancelled Lymph % (Auto) Cancelled [facility] % (Auto) Cancelled Eos % (Auto) Cancelled Baso % (Auto) Cancelled Lymph # (Auto) Cancelled [facility] # (Auto) Cancelled Eos # (Auto) Cancelled Baso # (Auto) Cancelled Abs Immat Gran (auto) Cancelled Absolute Neuts (auto) Cancelled Absolute Nucleated RBC 0.000 Nucleated RBC % (auto) 0.0 Neutrophils % (Manual) 86 H Band Neutrophils % 0 L Lymphocytes % (Manual) 4 L Monocytes % (Manual) 10 Abs Neuts (Manual) 20.5 H Lymphocytes # (Manual) 1.0 Monocytes # (Manual) 2.4 H Platelet Estimate NORMAL Plt Morphology Comment NORMAL RBC Morphology NOTED Johan Cells 1+ (0-2) Smear Tech's Comments MANUAL DIFF PT INR APTT Anion Gap 16 Estim Creat Clear Calc 58.5 Estimated GFR > 60 Random Glucose 112 D Estimat Average Glucose Hemoglobin A1c % Calcium 8.6 D Total Bilirubin 0.5 Direct Bilirubin 0.2 AST 19 ALT 15 Alkaline Phosphatase 64 Total Protein 5.6 L Albumin 3.5 Triglycerides 70 Cholesterol 155 LDL Cholesterol, Calc 101 HDL Cholesterol 40 Prostate Specific Ag 66.55 H TSH 0.35 Urine Color Urine Appearance Urine pH Ur Specific [place] Urine Protein Urine Glucose (UA) Urine Ketones Urine Blood Urine Nitrite Ur Leukocyte Esterase Urine RBC Urine WBC Ur Squamous Epith Cells Urine Bacteria COVID-19 (MANDA) COVID-19 [facility] Com Blood Type Antibody Screen 01/17/21 01/17/21 05:16 05:16 MCV MCH MCHC RDW Plt Count MPV Immature Gran % (Auto) Neut % (Auto) Lymph % (Auto) [facility] % (Auto) Eos % (Auto) Baso % (Auto) Lymph # (Auto) [facility] # (Auto) Eos # (Auto) Baso # (Auto) Abs Immat Gran (auto) Absolute Neuts (auto) Absolute Nucleated RBC Nucleated RBC % (auto) Neutrophils % (Manual) Band Neutrophils % Lymphocytes % (Manual) Monocytes % (Manual) Abs Neuts (Manual) Lymphocytes # (Manual) Monocytes # (Manual) Platelet Estimate Plt Morphology Comment RBC Morphology Johan Cells Smear Tech's Comments PT 12.5 INR 1.1 APTT Anion Gap Estim Creat Clear Calc Estimated GFR Random Glucose Estimat Average Glucose 91 Hemoglobin A1c % 4.8 Calcium Total Bilirubin Direct Bilirubin AST ALT Alkaline Phosphatase Total Protein Albumin Triglycerides Cholesterol LDL Cholesterol, Calc HDL Cholesterol Prostate Specific Ag TSH Urine Color Urine Appearance Urine pH Ur Specific [place] Urine Protein Urine Glucose (UA) Urine Ketones Urine Blood Urine Nitrite Ur Leukocyte Esterase Urine RBC Urine WBC Ur Squamous Epith Cells Urine Bacteria COVID-19 (MANDA) COVID-19 Clin Com Blood Type Antibody Screen Microbiology Microbiology Results: Microbiology 01/16/21 Unknown Urine clean catch - Urine george top Urine Culture - Final Progress Note: A&P (1) Hematuria: Status: Acute Assessment and Plan: 80 year old man admitted with hematuria secondary to prostate mass. Abdominal CT scan of the abdomen and pelvis, shows abnormal markedly enlarged heterogeneous prostate, protruding into the base of the bladder, causing urine bladder outlet obstruction. Hyperdense mass filling of the almost entire lumen, may represent hemorrhagic mass versus hemorrhage. Solid hypodense 6.5 cm mass within the left lobe of the liver, Hematuria. Possibly secondary to prostate mass vs hemorrhage s/p organized clot removed from bladder. Laser procedure performed on extremely large prostate. NPO advance diet after surgery Follow HH closely Leukocytosis . Secondary to UTI Rocephin follow urine cx Supratherapeutic INR. 1.2. Recheck PT INR in the morning continues to be elevated may need vitamin K in light of hematuria DVT prophylaxis with mech boots due to hematuria Attending Dr. Charlton Full code Quality Stroke Does the patient have a stroke diagnosis?: No VTE Prior VTE?: No VTE Risk Level:: Medical - moderate - high VTE Device Contraindication: N/A - Device Ordered VTE Drug Contraindication: Treatment Not Indicated
--- NOTE | 2021-01-17 12:11 | MHC.SHP ---
Pre-Procedural Eval Section A Date of Service: 01/17/21 The patient is an INPATIENT: Yes Changes since office visit: No Cold of Flu in the past 2 weeks, No New Medical Problems, No Changes in Medication and No Patient answered all questions The History & Physical has been completed within 30 days and I have reviewed it.: Yes Section B Chief Complaint: Hematuria Allergies: Allergies Allergy/AdvReac Type Severity Reaction Status Date / Time bee pollen [bee stings] Allergy Swelling Verified 01/17/21 11:36 Plan Diagnosis/Plan: Unchanged (Cystoscopy, clot evacuation, prostate procedure) I have reviewed the history and physical and performed a pertinent physical examination on my patient. No changes have occurred unless specified.
[2021-01-17] MEDS: Gentamicin Sulfate/NaCl 80 MG/100 ML PIGGYBACK 100 MG IV (12:25)
--- NOTE | 2021-01-17 13:15 | PC.NURSE ---
Per Dr. Alcaraz, do not administer Levaquin IV Preop due to patient already being on IV Rocephin. Levaquin IV PreOp not administered.
--- NOTE | 2021-01-17 15:09 | W.PM.OPN ---
Operative Note Operative Note Date of Service: 01/17/21 Narrative: PreOperative Diagnosis: Hematuria with enlarged prostate Post Operative Diagnosis: Same Procedure: Cystoscopy with clot evacuation, GreenLight laser enucleation of the prostate Surgeon: Dr Navid Newberry Anesthesia: General Indications for procedure: Admitted through emergency room with retention and hematuria. CT imaging showed heterogeneous mass within bladder likely large organizing clot with grossly protuberant prostate. Three way Mendez catheter started for temporization. Discussed with patient this morning. Aim for clot evacuation with necessary prostate procedure likely GreenLight laser on prostate as equipment is available today. He wishes to proceed. Procedure: After informed consent was verified the patient was brought to the operating room and placed in a supine position. Anesthesia was administered per protocol. Patient was placed in modified dorsal lithotomy position and prepped and draped in a sterile fashion. Safety pause time-out was confirmed. Antibiotics have been given. Twenty-four Luxembourger laser cystoscope was inserted per urethra. Large organizing clot seen within the bladder. Using the [employer] engine assembler the clot was broken and removed. The bladder was re-examined. Numerous diverticula and severe trabeculation. Both ureteric orifice was seen. Median lobe was very large in decision was made just to remove the median lobe and leave the lateral lobes alone. No abnormalities found the anterior posterior urethra. The bladder was filled on both ureteric orifices were seen in normal position away from our area of interest. Using a GreenLight laser settings of 80 w incisions were made at the 5 and 7 o'clock position. They were taken down and then laterally on each side. They were brought from the bladder neck down to the level of the veru. These defined the lateral aspects of the median lobe area. The median lobe was very large so was divided down the middle and we worked 1st on the right side component. Multiple levels of resection were used to remove the medium lobe tissue. Once the right side was completed we were able to work on the left side. Grooves were taken at the 5 and 07:00 o'clock and these were extended in the area between them flattened of tissue. This took approximately 90 minutes. This is 100% longer than typical. Modify 52 When this was completed debris and pieces of prostate removed from the bladder. Both ureteric orifices were reviewed again in shown to be patent in away from any areas of energy damage. The apical area was reviewed in any stray ooze was controlled. A 22 [place] 30 cc balloon Mendez catheter was placed over stylet into the bladder. Clear efflux was obtained. 30 cc was placed in the balloon and gentle traction was placed. A snap was used to hold tension once the patient will be moved and transported. Once transportation its finish this novel be removed. A belladonna and opiate suppository was placed for postprocedure pain management. He tolerated procedure well was extubated in the operating and transferred in a stable condition to the recovery area. Laser power 448 kilojoules all, 56 minutes Pathology: Prostate tissue Drains: Mendez catheter
--- NOTE | 2021-01-17 15:59 | PC.NURSE ---
Dr. Newberry at bedside patients [address] opened on low patient settled down and urine became slight pink tinged. Report faxed awaiting [facility] to call.
[2021-01-18] VITALS: BP 136/64; PULSE 61; RESP 20; TEMP 36.8; O2SAT 97
[2021-01-18] MEDS: 0.9 % Sodium Chloride Flush 3 ML SYRINGE IVFLUSH ×2 (00:39→07:50)
[2021-01-18 03:17] VITALS: BP 139/73; PULSE 68; RESP 20; TEMP 36.4; O2SAT 98
[2021-01-18 05:54] LABS: Hematocrit 24.9 % (42-52); Hemoglobin 8.4 g/dl (14.0-18.0); Mean Corpuscular HGB Conc 33.7 g/dl (31.0-36.0); Mean Corpuscular Hemoglobin 31.2 pg (27.0-33.0); Mean Corpuscular Volume 92.6 fL (80-98); Mean Platelet Volume 9.6 fL (9.4-12.4); Platelet Count 191 X10*3/uL (160-400); Red Blood Count 2.69 X10*6/uL (4.60-5.80); Red Cell Distribution Width 14.6 % (11.0-16.0); White Blood Count 21.7 X10*3/uL (4.8-10.8)
[2021-01-18 06:00] VITALS: BMI 23.0
[2021-01-18 06:12] LABS: Anion Gap 15 (12-20); Blood Urea Nitrogen 32 mg/dL (9-16); Calcium 8.4 mg/dL (8.4-10.2); Carbon Dioxide 20 mmol/L (22-29); Chloride 109 mmol/L (96-108); Creatinine Clr Calc Pharmacy 59.9; Estimated Glomerular Filt Rate > 60; Glucose Random 114 mg/dL (60-115); Sodium 139 mmol/L (135-145)
[2021-01-18] MEDS: cefTRIAXone sodium 1 GM in 0.9 % Sodium Chloride 50 ML IV (07:50)
[2021-01-18 08:00] VITALS: BP 129/58; PULSE 69; RESP 18; TEMP 36.7; O2SAT 99
[2021-01-18 10:56] VITALS: BP 121/58; PULSE 77; RESP 18; TEMP 36.6; O2SAT 97
--- NOTE | 2021-01-18 11:33 | HO.POSTANES ---
Post Anesthesia Evaluation Post Anesthesia Evaluation Vital Signs: Vital Signs Temp Pulse Resp BP Pulse Ox 01/18/21 10:56 97.9 F 77 18 121/58 L 97 01/18/21 08:00 98.1 F 69 18 129/58 L 99 01/18/21 03:17 97.5 F 68 20 139/73 98 01/18/21 00:00 98.3 F 61 20 136/64 97 Anesthesia: General Mental Status: Awake Pain Control: Satisfactory Nausea/Vomiting: None Hydration: Adequate Anesthesia-Related Issues: No Anes. Related Issues
--- NOTE | 2021-01-18 11:44 | PM.UROPN ---
Subjective Subjective Date of Service: 01/18/21 Interval history: Doing very well this morning hematuria resolved CBI has been stopped can cap 3 way catheter discharge with catheter review on Sunday for catheter removal in office will need antibiotics for 2 weeks preference for ciprofloxacin Physical Exam Vital Signs: Vital Signs: Last Vital Signs Temp 97.9 F 01/18/21 10:56 Pulse 77 01/18/21 10:56 Resp 18 01/18/21 10:56 BP 121/58 L 01/18/21 10:56 Pulse Ox 97 01/18/21 10:56 Body Mass Index 23.0 Const: General: cooperative, healthy appearing, comfortable and no acute distress Orientation/consciousness: patient oriented x3 HENMT: Face and sinus: Yes normal facial exam Mouth: moist mucous membranes Neck: Neck: Yes normal visual inspection, Yes full ROM and Yes trachea midline Chest: Chest palpation & inspection: normal inspection of the chest Resp: Effort & Inspection: normal respiratory effort, able to speak in complete sentences and no respiratory distress GI: Inspection: Yes normal to inspection Back/Spine/Pelvis: Cervical Spine: normal cervical lordosis Thoracic/Lumbar Spine: thoracic and lumbar spine normal to inspection Skin: General skin exam: no rashes or lesions noted Neuro: General: patient oriented x3, gait normal, tone normal and moves all extremities Extrem: General: Yes normal to inspection and Yes capillary refill normal Urology Results Labs CBC & Chem 7: 01/18/21 05:23 01/18/21 05:23 Labs: Laboratory Results - last 24 hr 01/16/21 01/18/21 01/18/21 18:54 05:23 05:23 WBC 21.7 H RBC 2.69 L Hgb 8.4 L Hct 24.9 L MCV 92.6 MCH 31.2 MCHC 33.7 RDW 14.6 Plt Count 191 MPV 9.6 Absolute Nucleated RBC 0.000 Nucleated RBC % (auto) 0.0 Sodium 139 Potassium 5.0 Chloride 109 H Carbon Dioxide 20 L Anion Gap 15 BUN 32 H Creatinine 0.85 Estim Creat Clear Calc 59.9 Estimated GFR > 60 Random Glucose 114 Calcium 8.4 Blood Type O Positive Antibody Screen NEGATIVE Crossmatch See Detail Progress Note: A&P Assessment and plan (1) Hematuria: Status: Acute (2) BPH w urinary obs/LUTS: Status: Acute Assessment and Plan: may DC with Mendez catheter needs 14 days antibiotics Fall Risk Details Current Medications: Current Medications Generic Name Dose Route Start Last Admin Trade Name Denizq PRN Reason Stop Dose Admin Acetaminophen 650 mg 01/16/21 18:05 Acetaminophen 325 Mg Tablet PO Q6H PRN Pain, Mild (Pain Scale 1-3) Acetaminophen 650 mg 01/17/21 11:53 Acetaminophen 325 Mg Tablet PO ONCE PRN Pain, Mild (Pain Scale 1-3) Fentanyl 50 mcg 01/17/21 11:53 Fentanyl Citrate/Pf 100 Mcg/2 Ml Vial IVPUSH Q5M PRN Pain, Severe (Pain Scale 7-10) Ceftriaxone Sodium 1 gm/ 50 mls @ 100 mls/hr 01/17/21 08:15 01/18/21 08:20 Sodium Chloride IV Infused Q24H RAY Infusion Lactated Ringer's 500 mls @ 20 mls/hr 01/17/21 14:45 01/18/21 03:56 Lr IVCONT Infused .Q24H RAY Infusion Ondansetron HCl 4 mg 01/16/21 18:05 Ondansetron Hcl 4 Mg/2 Ml Vial IVPUSH Q8H PRN Nausea and Vomiting Ondansetron HCl 4 mg 01/17/21 11:53 Ondansetron Hcl 4 Mg/2 Ml Vial IVPUSH ONCE PRN Nausea and Vomiting Oxycodone HCl 5 mg 01/17/21 11:53 Oxycodone Hcl Immed Release 5 Mg Tablet PO ONCE PRN Pain, Severe (Pain Scale 7-10) Sodium Chloride 3 ml 01/17/21 00:00 01/18/21 07:50 0.9 % Sodium Chloride Flush 3 Ml Syringe IVFLUSH 3 ml QSHIFT RAY Administration Tramadol HCl 50 mg 01/17/21 15:06 Tramadol Hcl 50 Mg Tablet PO Q6H PRN Pain, Moderate (Pain Scale 4-6 Time Spent With Patient Time: Total time spent is greater than 50% in coordination of care (as documented) at patient's floor/unit and/or counseling patient: Time with patient: less than 15 minutes Progress Note: Quality Stroke Does the patient have a stroke diagnosis?: No
[2021-01-18 11:53] VITALS: O2SAT 96
--- NOTE | 2021-01-18 11:55 | PM.DS ---
DS: Providers Provider Date of Service: 01/18/21 Date of admission: 01/16/21 18:05 Primary care physician: None Physician Consults: 01/16/21 18:10 Consult to Urology Routine Consulting Provider: Navid Newberry Reason for consultation: hematuria, prostate mass Has provider been notified: No DS: Diagnosis Discharge Diagnosis (1) Acute blood loss anemia: Status: Acute (2) Hematuria: Status: Acute (3) BPH w urinary obs/LUTS: Status: Acute (4) Prostate mass: Status: Acute DS: Summary Hospital Course Hospital Course: Patient presented to the hospital with hematuria And urinary retention. A Saucedo catheter was inserted and CBI was initiated. He underwent CT scan which showed a large prostate, hydronephrosis, liver mass. His PSA was elevated. He was evaluated by Urology and underwent cystoscopy with removal of clot as well as lasering of the prostate. He will be discharged home with Saucedo catheter in place along with 2 weeks of empiric antibiotics per Urology recommendations. He will be following up with Urology on 01/21/2021. In regards to his liver mass, he will be referred oncology for further assessment Time Spent with Patient Time attestation: Total time spent providing and/or coordinating discharge services: Discharge coordination time: Greater than 30 minutes Quality: Stroke Does the patient have a stroke diagnosis?: No Physical Exam Vital Signs: Vital Signs: Last Vital Signs Temp 97.9 F 01/18/21 10:56 Pulse 77 01/18/21 10:56 Resp 18 01/18/21 10:56 BP 121/58 L 01/18/21 10:56 Pulse Ox 97 01/18/21 10:56 Body Mass Index 23.0 Const: Other: General - no acute distress, appears comfortable Cardiovascular - regular rate and rhythm, S1-S2 Lungs - normal respiratory effort, clear to auscultation bilaterally, no wheezing Abdomen - soft, nontender, no rebound or guarding Extremities - no edema bilaterally Neuro - awake and alert, no focal deficits DS: Data Data Completed and Pending Labs on day of discharge: Laboratory Results - last 24 hr 01/16/21 01/18/21 01/18/21 18:54 05:23 05:23 WBC 21.7 H RBC 2.69 L Hgb 8.4 L Hct 24.9 L MCV 92.6 MCH 31.2 MCHC 33.7 RDW 14.6 Plt Count 191 MPV 9.6 Absolute Nucleated RBC 0.000 Nucleated RBC % (auto) 0.0 Sodium 139 Potassium 5.0 Chloride 109 H Carbon Dioxide 20 L Anion Gap 15 BUN 32 H Creatinine 0.85 Estim Creat Clear Calc 59.9 Estimated GFR > 60 Random Glucose 114 Calcium 8.4 Blood Type O Positive Antibody Screen NEGATIVE Crossmatch See Detail Preliminary micro results at discharge 01/17/21 08:55 Blood Culture - Preliminary Blood - Venous No growth after 24 hours. 01/17/21 08:40 Blood Culture - Preliminary Blood - Venous No growth after 24 hours. Discharge Plan Discharge Patient Disposition: Home, Self-Care Discharge Diagnosis: Prostate Mass, Hematuria Referrals: Navid Newberry MD [Physician] - 01/21/21 Luiz Mir MD [Physician] - 01/20/21 8:00 am Physician,None [Primary Care Provider] - 1 Week Discharge Medications: New ciprofloxacin HCl [Cipro] 250 mg tablet 250 mg PO Q12H Qty: 28 RF: 0 Discharge Orders: Discharge Order (Routine); Ordered 01/18/21 Ordered By: Genaro Charlton Diet: advance to usual diet Activity on Discharge: As tolerated Stand Alone Forms: Patient Portal Discharge page Care Plan Goals: To get treatement of prostate cancer Health Concerns: Prostate Cancer Urinary Retention Liver lesion Plan of Treatment: Keep saucedo catheter in Follow up with Dr. Newberry on Sunday. Take Cipro twice daily for 14 days Follow up oncology on @ 8am. Assessment: 80 yo M admitted for hematuria. Underwent cystoscopy. Found to have prostate mass with elevated PSA - likely representing prostate cancer. Also has liver mass which may need biopsy. WIll be referred to oncology.
--- NOTE | 2021-01-18 17:46 | PC.NURSE ---
Mendez draining pink tinged. Mendez teaching done with pt along with leg bag teaching. Pt able to return demonstration of changing from leg bag to larger bag and vice versa. Also able to demonstrate emptying bag. Literature given to pt as well. verbalized understanding.
[2021-01-22 12:06] LABS: Carbohydrate Antigen 19-9 48 U/mL (<34)
== END 2021-01-18 18:03 | disposition home or self-care (01) | DRG 713 ==
LOC: HO.ED 14:15 → HO.EDOVER 18:29 → HO.IMC 23:54
PROVIDERS: Urology; Admitting Provider Nurse Practitioner Acute Care; Emergency Provider Emergency Medicine; Visit Provider Family Medicine
PROC: 0TBB8ZZ Excision of Bladder, Via Natural or Artificial Opening Endoscopic (ICD-10-PCS; principal; 2021-01-17 15:30)
DX: C61 Malignant neoplasm of prostate (principal); N39.0 Urinary tract infection, site not specified; N13.30 Unspecified hydronephrosis; D62 Acute posthemorrhagic anemia; N32.89 Other specified disorders of bladder; R16.0 Hepatomegaly, not elsewhere classified; N40.1 Benign prostatic hyperplasia with lower urinary tract symptoms; R33.8 Other retention of urine; R31.0 Gross hematuria; D72.829 Elevated white blood cell count, unspecified; R79.1 Abnormal coagulation profile; Z20.822 Contact with and (suspected) exposure to COVID-19; Z87.891 Personal history of nicotine dependence
CPT/HCPCS: 36415; 74176; 80048; 80053; 80061; 80076; 81001; 81003; 82378; 83036; 84153; 84443; 85007; 85014; 85018; 85025; 85027; 85610; 85730; 86301; 86850; 86900; 86901; 86923; 87040; 87086; 87635; 99024; 99285; J0696; J1100; J1580; J2405; J3010; P9016

== ENCOUNTER → 2021-01-21 08:36 | Outpatient (BNVA) | payer MEDICARE, SELFPAY | DX: N40.1 Benign prostatic hyperplasia with lower urinary tract symptoms (principal); N13.8 Other obstructive and reflux uropathy; R33.8 Other retention of urine | CPT/HCPCS: 99212 ==

== ENCOUNTER → 2021-02-10 13:26 | Outpatient (BNVA) | payer MEDICARE, SELFPAY | PROVIDERS: Visit Provider Urology | DX: N40.1 Benign prostatic hyperplasia with lower urinary tract symptoms (principal); N13.8 Other obstructive and reflux uropathy | CPT/HCPCS: 51798; 99212 ==

== ENCOUNTER 2021-02-14 09:31 | Day surgery (SDC) | payer MEDICARE, SELFPAY ==
--- NOTE | ~2021-02-14 | CT_ITS ---
PROCEDURE: CT GUIDED BIOPSY, LIVER CLINICAL INFORMATION: Left lobe of liver mass. COMPARISON: CT scan of 01/16/2021 TECHNIQUE: CT fluoroscopic-guided liver biopsy from a parasternal approach. This CT examination was performed using dose optimization techniques as appropriate, variously including the following: *Automated exposure control *Adjustment of mA and/or kV according to patient size (this includes techniques or standardized protocols for targeted exams where dose is matched to indication/reason for exam; i.e. extremities or head) *Use of iterative reconstruction technique DLP: 337 mGy-cm FINDINGS: Informed consent was obtained from the patient prior to the procedure. During this process, the procedure and potential alternatives were explained, along with the intended outcome and benefits. The risks of the procedure, as well as the risk of not doing the procedure, were discussed. The patient was given the opportunity to ask questions regarding the procedure and appeared competent to make medical decisions. A signed consent form which documents this discussion was placed in the medical record. Using CT fluoroscopic guidance and sterile technique from a right parasternal approach, a 17-gauge guiding needle was directed into the left lobe of liver mass, and four 18-gauge core biopsies obtained. Cytology was present at time of procedure. No postprocedure complication. There is noted to be a small amount of free air within the abdomen related to the procedure. CT/CT biopsy liver IMPRESSION: Successful core liver biopsy left lobe of liver mass.
--- NOTE | ~2021-02-14 | US_ITS ---
EXAMINATION: US ABDOMEN LIMITED CLINICAL INFORMATION: Left lobe liver mass biopsy. COMPARISON: CT abdomen and pelvis 01/16/2021. TECHNIQUE: Real-time imaging of the left lobe liver mass. FINDINGS: Scanning of the liver prior to biopsy of left lobe mass was performed. The masslike under the sternum without good approach with ultrasound and limited visibility. US/US abdomen limited IMPRESSION: Change of ultrasound-guided liver biopsy to CT guided procedure due to positioning of the left lobe of liver and difficulty access site from a subxiphoid approach.
[2021-02-14 09:40] VITALS: BMI 25.7
[2021-02-14 09:49] LABS: MANUAL DIFF FLAG NO
[2021-02-14 09:53] LABS: Basophils Percent Auto 0.4 % (0-2); Eosinophils Absolute Auto 0.3 X10*3/uL (0.0-0.4); Eosinophils Percent Auto 3.7 % (0-4); Hematocrit 32.7 % (42-52); Imm Gran Abs Auto 0.04 X10*3/uL (0.00-0.03); Imm Gran Pct Auto 0.5 % (0.0-0.4); Lymphocytes Absolute Auto 1.9 X10*3/uL (1.2-4.9); Lymphocytes Percent Auto 25.3 % (20-40); Mean Corpuscular HGB Conc 30.6 g/dl (31.0-36.0); Mean Corpuscular Hemoglobin 27.9 pg (27.0-33.0); Mean Corpuscular Volume 91.3 fL (80-98); Monocytes Absolute Auto 0.8 X10*3/uL (0.1-1.2); Monocytes Percent Auto 10.5 % (2-11); Neutrophils Absolute Auto 4.6 X10*3/uL (2.0-8.3); Neutrophils Percent Auto 59.6 % (45-73); Platelet Count 354 X10*3/uL (160-400); Red Blood Count 3.58 X10*6/uL (4.60-5.80); Red Cell Distribution Width 14.8 % (11.0-16.0); White Blood Count 7.6 X10*3/uL (4.8-10.8)
[2021-02-14 10:06] LABS: Prothrombin Time 11.7 SEC (9.9-13.0)
[2021-02-14 10:09] LABS: Partial Thromboplastin Time 37.8 SEC (24.1-38.0)
[2021-02-14 13:24] VITALS: BP 124/61; PULSE 60; RESP 18; TEMP 37.2; O2SAT 98
[2021-02-14 13:39] VITALS: BP 122/56; PULSE 64; RESP 18; O2SAT 100
[2021-02-14 13:54] VITALS: BP 127/52; PULSE 60; RESP 20; O2SAT 99
[2021-02-14 14:09] VITALS: BP 129/56; PULSE 64; RESP 20; O2SAT 99
[2021-02-14 14:39] VITALS: BP 118/54; PULSE 57; RESP 20; O2SAT 99
[2021-02-14 15:08] VITALS: BP 122/51; PULSE 63; RESP 20; TEMP 37.2; O2SAT 99
== END 2021-02-14 15:12 | disposition home or self-care (01) ==
LOC: HO.SSS 09:31
PROVIDERS: Radiology Diagnostic Radiology; Visit Provider Radiology Diagnostic Radiology
DX: R16.0 Hepatomegaly, not elsewhere classified (principal); D64.9 Anemia, unspecified
CPT/HCPCS: 36415; 47000; 76705; 77012; 85025; 85610; 85730; 88307; 88313; 88333; J2250; J3010

== ENCOUNTER 2021-03-23 07:57 | Outpatient (REF) | payer MEDICARE, SELFPAY ==
[2021-03-23 09:41] LABS: PSA,Total (Free>4and<10) 9.93 ng/mL (0.00-4.00)
[2021-03-24 12:31] LABS: Free Prostate Spec Ag 2.2 ng/mL; Percent Free Prostate Spec Ag NOT CALCULATED % (calc) (>25); Prostate Specific Ag Total 10.1 ng/mL (< OR = 4.0)
== END 2021-03-23 07:58 | disposition home or self-care (01) ==
LOC: HO.LAB 07:57
PROVIDERS: Visit Provider Urology
DX: N40.1 Benign prostatic hyperplasia with lower urinary tract symptoms (principal); N13.8 Other obstructive and reflux uropathy
CPT/HCPCS: 36415; 84153; 84154

== ENCOUNTER → 2021-03-24 13:27 | Outpatient (BNVA) | payer MEDICARE, SELFPAY | PROVIDERS: Visit Provider Urology | DX: R97.20 Elevated prostate specific antigen [PSA] (principal) | CPT/HCPCS: 99212 ==

== ENCOUNTER → 2021-06-21 13:21 | Outpatient (BNVA) | payer MEDICARE, SELFPAY | PROVIDERS: Visit Provider Urology | DX: N40.1 Benign prostatic hyperplasia with lower urinary tract symptoms (principal); N13.8 Other obstructive and reflux uropathy; R97.20 Elevated prostate specific antigen [PSA] | CPT/HCPCS: 51798; 99212 ==

== ENCOUNTER → 2024-03-13 15:02 | Outpatient (RCR) | payer MEDICARE, SELFPAY ==
[2021-01-20 08:17] VITALS: BP 134/60; PULSE 77; RESP 18; TEMP 36.4; O2SAT 99; BMI 24.0
--- NOTE | 2021-01-20 08:32 | PM.HEMONCCN ---
Subjective - Subjective Chief complaint: Consult for: 1. Prostate mass 2. Liver mass. Patient: new to practice Consult date: 01/20/21 Requesting Physician: Navid portillo. Medical Summary: DIAGNOSIS: LIVER LESION. PROSTATE MASS. HPI - Consult Narrative Reason for consult: Consult for: 1. Liver lesion. 2. Prostate mass. Narrative: Torito Weber is a pleasant 80 year old gentleman, who was in house between 01/16 to 01/18. Discharge summary: Patient presented to the hospital with hematuria And urinary retention. A Mendez catheter was inserted and CBI was initiated. He underwent CT scan which showed a large prostate, hydronephrosis, liver mass. His PSA was elevated. He was evaluated by Urology and underwent cystoscopy with removal of clot as well as lasering of the prostate. He was discharged home with Mendez catheter in place, along with 2 weeks of empiric antibiotics per Urology recommendations. . Patient tells me he has not seen a physician since the age of 20. Last year he had a bout with UTI along with hematuria. Over the past 2 weeks the patient has had his blood in the urine. Sunday prior to admission he was evaluated by family. He looked pale and weak and so was advised to go to the hospital. CT scan of the abdomen revealed: 1. Markedly enlarged heterogenous prostate, protruding into the base of the bladder, causing bladder outlet obstruction. 2. Solid hypodense 6.5 cm mass within the left lobe of the liver. 3. Thickening of the left at the adrenal gland, consistent with adrenal adenoma. Patient had a biopsy of the prostate gland the results are pending. PSA: 66.5. ROS: He denies much in terms of fatigability. No fever nor chills. Appetite is good. He has lost some weight. No headache no dizziness. He denies any chest pain or trouble breathing. He denies abdominal pain nausea vomiting heartburn indigestion. Since the surgery his stool is green or black and sticky, he goes once a day. He denies any suprapubic pain. He gets burning when he passes clots. He has a Mendez in. He has appointment with Dr. Portillo tomorrow to reassess. Denies any joint pain muscle pain. No focal weakness. Denies depression. No rashes nor pruritus. Family history: His brother of prostate cancer 3 years ago. He was 70 years old. Social history: He worked in [employer]. He is not . He has no children. He smoked in his teenage years. Denies alcohol. Review of Systems - Constitutional Reports no additional constitutional complaints, Denies lack of energy, Denies malaise, Denies night sweats, Reports poor appetite, Reports weight loss - Eyes Reports no additional eye complaints, Denies blurry vision - ENT Reports no additional ear, nose, mouth, and throat complaints, Reports hearing normal - Cardiovascular Reports no additional cardiovascular complaints - Respiratory Reports no additional respiratory complaints - Gastrointestinal Reports no additional gastrointestinal complaints, Reports black, tarry stools, Reports loose stools - Genitourinary Genitourinary: Reports no additional male genitourinary complaints Comments: Hematuria. Has a Mendez in place. - Musculoskeletal Reports no additional musculoskeletal complaints - Integumentary/Breasts Skin/Breast: Reports no additional skin complaints - Neurologic Reports no additional neurologic complaints - Psychiatric Reports no additional psychiatric complaints - Endocrine Reports no additional endocrine complaints - Hematologic/Lymphatic Reports no additional hematologic/lymphatic complaints - Allergic/Immunologic Reports no additional allergic/immunologic complaints Oncology Screenings - ECOG Performance Status ECOG Performance Status: 0 [facility] Medical History: Medical History (Last Reviewed 01/20/21 @ 08:24 by Ivy Galvez RN) Gluten free diet Functional capacity: independent ambulation Patient : No Family History: Family History (Last Reviewed 01/20/21 @ 08:26 by Ivy Galvez RN) Brother Prostate cancer Surgical History: Surgical History (Last Reviewed 01/20/21 @ 08:25 by Ivy Galvez RN) H/O hernia repair Social History: Social History (Last Reviewed 01/20/21 @ 08:26 by Ivy Galvez RN) Living Situation History: Household Members: Family Housing: House Do you presently have visiting nurse or other home services: No Alcohol History Details: Alcohol intake frequency: does not drink Tobacco History: Patient Tobacco Use Status: Former Tobacco user Tobacco use type: Cigarette Years Smoked: 5 Smoke Quit Date: when pt was [age] yrs old Occupation Assessmet: service: No Current occupational status: retired Home Medications and Allergies Allergies Allergy/AdvReac Type Severity Reaction Status Date / Time bee pollen [bee stings] Allergy Swelling Verified 01/17/21 11:36 Physical Exam Vital signs: Vital Signs Temp 97.6 F 01/20/21 08:17 Pulse 77 07/15/21 08:17 Resp 18 01/20/21 08:17 BP 134/60 01/20/21 08:17 Pulse Ox 99 01/20/21 08:17 Intake & Output 01/19/21 01/20/21 01/20/21 18:59 06:59 18:59 Other: Weight 61.6 kg [place] Weight in Grams 31799 Weight 61.6 kg - Constitutional Present: mild distress - Routine HEENT Exam Head: Present: normocephalic ENT: Present: mucous membranes moist - Routine Neck Exam Present: supple - Routine Respiratory Exam Present: CTAB - Routine Cardiovascular Exam Cardiovascular: Present: RRR, S2. Absent: S3, S4 - Routine Abdominal Exam Present: normal bowel sounds, soft, nontender - Routine Rectal Exam Patient deferred: digital exam - Routine Extremities Exam Absent: nontender - Routine Skin Exam Present: intact - Routine Neurological Exam Present: alert, oriented X3 - Routine Psychiatric Exam Present: normal affect Hem/Onc Consult Result - Labs CBC & Chem 7: 01/20/21 09:16 01/20/21 09:16 Assessment and Plan (1) Mass of left lobe of liver Status: Acute This is a pleasant 80-year-old gentleman, who was admitted to the hospital last week with hematuria, of 2 weeks duration. Sunday prior to admission he was evaluated by family. He looked pale and weak and so was advised to go to the hospital. CT scan of the abdomen revealed: 1. Markedly enlarged heterogenous prostate, protruding into the base of the bladder, causing bladder outlet obstruction. 2. Solid hypodense 6.5 cm mass within the left lobe of the liver. 3. Thickening of the left at the adrenal gland, consistent with adrenal adenoma. Patient had a biopsy of the prostate gland the results are pending. PSA: 66.5. Discharge summary: Patient presented to the hospital with hematuria And urinary retention. A Mendez catheter was inserted and CBI was initiated. He underwent CT scan which showed a large prostate, hydronephrosis, liver mass. His PSA was elevated. He was evaluated by Urology and underwent cystoscopy with removal of clot as well as lasering of the prostate. He was discharged home with Mendez catheter in place, along with 2 weeks of empiric antibiotics per Urology recommendations. . He has an appointment with Dr. Portillo tomorrow. Patient tells me he has not seen a physician since the age of 20. Last year he had a bout with UTI along with hematuria. He will need to determine the etiology of the liver lesion. Could be metastatic from the prostate versus med from another primary i.e. colon. He has not had a screening colonoscopy. PLAN: Will proceed with the biopsy of the liver lesion by IR. Will check with them if ultrasound versus CT scan guidance would be appropriate. In the meantime I will check his baseline tumor markers including CEA and CA 19-9. Will check his labs today assess need for a transfusion. He had 1 unit of blood on 01/17. He will return in a couple of weeks for a follow-up visit. All his and his sister's questions were answered to their satisfaction. Thank you, CC: Dr. Navid Portillo.
[2021-01-20 09:33] LABS: Basophils Percent Auto 0.1 % (0-2); Eosinophils Absolute Auto 0.1 X10*3/uL (0.0-0.4); Eosinophils Percent Auto 0.7 % (0-4); Hematocrit 24.1 % (42-52); Hemoglobin 8.2 g/dl (14.0-18.0); Imm Gran Abs Auto 0.12 X10*3/uL (0.00-0.03); Imm Gran Pct Auto 0.9 % (0.0-0.4); Lymphocytes Absolute Auto 2.1 X10*3/uL (1.2-4.9); Lymphocytes Percent Auto 15.9 % (20-40); MANUAL DIFF FLAG SCAN; Mean Corpuscular Hemoglobin 31.5 pg (27.0-33.0); Mean Corpuscular Volume 92.7 fL (80-98); Monocytes Absolute Auto 1.6 X10*3/uL (0.1-1.2); Monocytes Percent Auto 12.1 % (2-11); Neutrophils Absolute Auto 9.1 X10*3/uL (2.0-8.3); Neutrophils Percent Auto 70.3 % (45-73); Platelet Count 234 X10*3/uL (160-400); Red Cell Distribution Width 14.4 % (11.0-16.0); SCAN SMEAR FLAG 1; White Blood Count 12.9 X10*3/uL (4.8-10.8)
[2021-01-20 10:05] LABS: SLIDE REVIEW VERIFIED
[2021-01-20 10:06] LABS: Alanine Aminotransferase 20 U/L (0-40); Albumin Level 3.7 g/dL (3.5-5.0); Alkaline Phosphatase 69 U/L (39-117); Anion Gap 12 (12-20); Aspartate Amino Transferase 20 U/L (5-37); Bilirubin Total 0.5 mg/dL (0.0-1.0); Blood Urea Nitrogen 32 mg/dL (9-16); Calcium 8.9 mg/dL (8.4-10.2); Carbon Dioxide 24 mmol/L (22-29); Chloride 105 mmol/L (96-108); Creatinine Clr Calc Pharmacy 59.7; Estimated Glomerular Filt Rate > 60; Glucose Random 107 mg/dL (60-115); Sodium 137 mmol/L (135-145); Total Protein 5.9 g/dL (6.5-8.0)
--- NOTE | 2021-01-20 12:34 | MHC.HEMONC ---
Exam with Dr Mir. Torito's sister Yuliana was present. Labs obtained and reviewed with patient. Medications/Clinical Summary updated by this RN. Patient denies pain. He has a saucedo catheter in place draining clear, pink urine with no clots. He states that he has had black and green loose stools since the initiation of the Cipro. He also states that she has an appointment with Dr Alcaraz tomorrow for saucedo catheter removal. He is scheduled to receive 1u PRBC in Oncology tomorrow. Liver biopsy date pending. Follow up with Dr Mir scheduled for 02/10/2021.
--- NOTE | 2021-01-24 15:08 | MHC.HEMONC ---
Pt scheduled for labs today, but did not come in for his appointment. Telephone call to pt. He states he had an allergic reaction, and his legs became swollen. He states he could not come in today because he is recovering. Appointment rescheduled to 01/27
[2021-01-27 10:29] LABS: MANUAL DIFF FLAG NO
[2021-01-27 10:37] LABS: Basophils Percent Auto 0.2 % (0-2); Eosinophils Absolute Auto 0.2 X10*3/uL (0.0-0.4); Eosinophils Percent Auto 2.8 % (0-4); Hematocrit 26.4 % (42-52); Hemoglobin 8.5 g/dl (14.0-18.0); Imm Gran Abs Auto 0.05 X10*3/uL (0.00-0.03); Imm Gran Pct Auto 0.6 % (0.0-0.4); Lymphocytes Absolute Auto 1.6 X10*3/uL (1.2-4.9); Mean Corpuscular HGB Conc 32.2 g/dl (31.0-36.0); Mean Corpuscular Hemoglobin 30.5 pg (27.0-33.0); Mean Corpuscular Volume 94.6 fL (80-98); Mean Platelet Volume 8.5 fL (9.4-12.4); Monocytes Absolute Auto 1.3 X10*3/uL (0.1-1.2); Monocytes Percent Auto 14.9 % (2-11); Neutrophils Absolute Auto 5.4 X10*3/uL (2.0-8.3); Neutrophils Percent Auto 62.5 % (45-73); Platelet Count 358 X10*3/uL (160-400); Red Blood Count 2.79 X10*6/uL (4.60-5.80); Red Cell Distribution Width 14.8 % (11.0-16.0); White Blood Count 8.6 X10*3/uL (4.8-10.8)
[2021-01-27 11:12] LABS: Alanine Aminotransferase 22 U/L (0-40); Albumin Level 3.5 g/dL (3.5-5.0); Alkaline Phosphatase 88 U/L (39-117); Anion Gap 10 (12-20); Aspartate Amino Transferase 18 U/L (5-37); Bilirubin Total 0.2 mg/dL (0.0-1.0); Blood Urea Nitrogen 15 mg/dL (9-16); Calcium 8.6 mg/dL (8.4-10.2); Carbon Dioxide 29 mmol/L (22-29); Chloride 107 mmol/L (96-108); Creatinine Clr Calc Pharmacy 58.3; Estimated Glomerular Filt Rate > 60; Glucose Random 98 mg/dL (60-115); Potassium 4.9 mmol/L (3.3-5.1); Sodium 141 mmol/L (135-145); Total Protein 5.7 g/dL (6.5-8.0)
--- NOTE | 2021-01-27 11:20 | MHC.HEMONC ---
Pt here for lab draw-blood drawn by flour distributor-specimen to lab. Results reviewed by Dr Mir. No transfusion today, patient and family member notified. CT biopsy liver order printed and given to Lakeshia Nguyen MA to facilitate. Pt discharged home
--- NOTE | 2021-01-27 12:11 | MHC.HEMONC ---
Appointment for CT biopsy liver scheduled for 02/03/21 at 0900. Pt called informed to arrive at 0730. Instructed not to eat or drink 4 hours prior to procedure. Verbalizes understanding of info given.
== END | disposition home or self-care (01) ==
LOC: HO.ONC 01-20 08:05
PROVIDERS: Referring Provider Family Medicine; Visit Provider Internal Medicine Medical Oncology
DX: K76.89 Other specified diseases of liver (principal); N40.1 Benign prostatic hyperplasia with lower urinary tract symptoms; N13.8 Other obstructive and reflux uropathy; N13.30 Unspecified hydronephrosis
CPT/HCPCS: 36415; 80053; 82378; 85025; 86850; 86900; 86901; 86923; 99204

== ENCOUNTER 2024-06-01 13:38 | Inpatient (IN) | payer MEDICARE, SELFPAY ==
--- NOTE | ~2024-06-01 | CT_ITS ---
EXAMINATION: CT ABDOMEN AND PELVIS WITH CONTRAST CLINICAL INFORMATION: Hematuria. COMPARISON: CT guided liver biopsy 02/14/2021, CT abdomen and pelvis 01/16/2021. TECHNIQUE: Multidetector volumetric images were obtained from the superior aspect of the liver through the pubic symphysis following administration 100 mL of Omnipaque 350 intravenous contrast. Sagittal and coronal reformatted images were obtained on the technologist's workstation. Oral contrast: No This CT examination was performed using dose optimization techniques as appropriate, variously including the following: *Automated exposure control *Adjustment of mA and/or kV according to patient size (this includes techniques or standardized protocols for targeted exams where dose is matched to indication/reason for exam; i.e. extremities or head) *Use of iterative reconstruction technique DLP: 377 mGy-cm FINDINGS: LUNG BASES: The visualized lung bases are unremarkable. LIVER, GALLBLADDER, AND BILIARY TREE: A 6.5 cm heterogeneous hypodense mass within the left lobe of the liver is unchanged appreciably compared with 01/16/2021. A vague 6 mm subcapsular hypodensity within segment 6 of the liver (series 3 image 21) is unchanged compared with 01/16/2021. The gallbladder is unremarkable with no evidence of radiopaque gallstones, gallbladder wall thickening, or obvious pericholecystic inflammatory changes. PANCREAS: Unremarkable. SPLEEN: Unremarkable. 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 Solely on the basis of this examination, no additional imaging follow-up is warranted. KIDNEYS AND URETERS: A small number of bilateral rounded low density subcentimeter foci are noted within the kidneys and are too small to specifically characterize but are overwhelmingly likely to be benign and represent benign, simple cyst. On the basis of this examination, no additional imaging follow-up is clearly warranted. No urolithiasis identified. No ureterectasis. BLADDER: The bladder is distended measuring 8.8 cm in diameter. A Mendez catheter terminates within the lumen of the urinary bladder. High density material (60 Hounsfield units) appears to be adherent to the terminus of the Mendez catheter may represent thrombus. A Mendez catheter balloon is not visualized. Intraluminal gas is noted within the urinary bladder in close proximity to the possible thrombus noted above. Additional nondependent intraluminal gas is noted within the urinary bladder. An approximate 1.2 cm diameter diverticulum of the right parasagittal base of the urinary bladder is noted. GASTROINTESTINAL TRACT: A moderate quantity of stool is present throughout the colon. No colonic dilatation noted. Normal appearance of the appendix (series 4 image 422) No free intraperitoneal fluid or gas collections identified. No inflammatory changes of the sigmoid mesentery or small bowel mesentery. Normal appearance of the visualized components of the superior mesenteric artery system. Normal appearance of the stomach and duodenum. ABDOMINAL WALL: No significant hernia is appreciated. LYMPH NODES: Normal. VASCULAR: Mild-moderate scattered calcific and noncalcific atherosclerosis PELVIC VISCERA: The prostate is markedly enlarged measuring 8 cm in diameter. OSSEOUS STRUCTURES: No suspicious skeletal abnormalities identified. Multilevel intervertebral disc space narrowing and endplate discogenic changes of the lumbar spine. CT/CT abdomen pelvis w IV con IMPRESSION: *Mendez catheter terminating within the urinary bladder. Findings suspicious for adherent thrombus at the terminus of the Mendez catheter. The urinary bladder is markedly distended. The Mendez catheter may be obstructed by adherent thrombus. No hydronephrosis. No urolithiasis. No suspicious renal lesions. *Marked diffuse enlargement of the prostate. The prostate measures 8 cm in diameter. *Single 6.5 cm mass within the left lobe of the liver unchanged compared with 01/16/[address]-guided biopsy 02/14/2021. Electronically signed by: Govind Ballard MD 06/02/2024 12:30 AM [facility]
[2024-06-01 13:41] VITALS: BP 171/65; PULSE 81; RESP 16; TEMP 37; O2SAT 95; BMI 24.1
--- NOTE | 2024-06-01 13:42 | ED.MALEGU ---
HPI - Male Genitourinary General Chief complaint: Urogenital-Male Stated complaint: urinating blood Time Seen by Provider: 06/01/24 16:24 Source: patient Mode of arrival: ambulatory Limitations: no limitations History of Present Illness ED Provider: atiya HU Narrative: Patient's history of hematuria and a large prostate status post cystoscopy with GreenLight laser enucleation of the prostate in 2020 cystoscopy at that time showed numerous diverticula and severe trabeculation of the urinary bladder was asymptomatic since then today noticed gross hematuria with blood clots again with lower abdominal discomfort post voidal bladder volume was 114 cc Related Data Previous Rx's ?Medication ?Instructions ?Recorded ciprofloxacin HCl 250 mg tablet 250 mg PO Q12H #28 tabs 01/18/21 (Cipro) terazosin 5 mg capsule 5 mg PO BEDTIME 90 days #90 caps 01/21/21 trimethoprim 100 mg tablet 100 mg PO DAILY 10 days #10 tabs 01/24/21 finasteride 5 mg tablet 5 mg PO DAILY 90 days #90 tabs 06/21/21 Allergies Allergy/AdvReac Type Severity Reaction Status Date / Time bee pollen [bee stings] Allergy Swelling Verified 06/01/24 13:42 Penicillins Allergy Anaphylaxis Verified 06/01/24 13:42 Review of Systems Review of Systems: Yes all other systems are reviewed and are negative PMFSH Past Medical History Medical History Gluten free diet Prostate mass Acute urinary retention Surgical History H/O hernia repair Family History Family History Brother Prostate cancer Social History Social History Household Members: Family Housing: House Do you presently have visiting nurse or other home services: No Comment: high fall d/t CBI Patient Tobacco Use Status: Former Tobacco user Tobacco use type: Cigarette Years Smoked: 5 Advance Directives: No Advance Directives Information Provided: No service: No Current occupational status: retired Physical Exam Vital Signs: Vital Signs: Last Vital Signs Temp 98.3 F 06/01/24 18:43 Pulse 83 06/01/24 18:43 Resp 15 06/01/24 18:43 BP 163/76 H 06/01/24 18:43 Pulse Ox 96 06/01/24 18:43 O2 Del Method Room Air 06/01/24 18:43 BMI result Body Mass Index 24.1 Appearance: Alert. Oriented X3. No acute distress. Eyes: No pallor or icterus ENT: Pharynx normal. Oral Mucosa moist Neck: Normal inspection. Neck supple. CVS: Normal heart rate and rhythm. Pulses normal. Respiratory: No respiratory distress. Equal air entry bilateral, no wheezing/rales/rhonchi Abdomen: Soft and nontender. Bowel sounds are present, no mass palpable, no CVA tenderness Skin: Skin warm and dry. Normal skin color. Normal skin turgor. Extremities: No lower extremity edema. No calf tenderness Neuro: Oriented X 3. No motor deficit. No sensory deficit.No cerebellar signs , cranial nerves II-XII intact Course Course Course Narrative: This is a rapid medical exam. Deferred additional HPI, ROS, PE to primary provider. 83 yo male with history of BPH here with complaint of urinating blood. No pain. NO AC therapy use. Will obtain labs, UA VSS -A. Richcucci [employer] Medications Administered Discontinued Medications Generic Name Dose Route Start Last Admin Trade Name Freq PRN Reason Stop Dose Admin Lidocaine HCl 10 ml 06/01/24 16:41 06/01/24 17:17 Lidocaine Hcl 2 % Urojet 10 Ml Jel.Pf.Driss TOPICAL 06/01/24 16:42 10 ml ONCE ONE Administration Medical Decision Making Medical Decision Making [facility] Narrative: Three-way Mendez catheter was placed manual irrigation was done been color was drained with few clots no active bleeding at this time with recheck During stay in the ER patient had clear urine after multiple irrigation left the Mendez catheter in place advised to follow up with urologist 07:00 when patient stood up he started having hematuria again will admit patient for bladder irrigation and urology evaluation Lab Data [facility] Lab Attestation statement: I reviewed the patient's lab results. 06/01/24 13:59 06/01/24 13:59 Labs: Lab Results 06/01/24 06/01/24 Range/Units 13:59 15:06 WBC 9.0 (4.8-10.8) X10*3/uL RBC 4.56 L (4.60-5.80) X10*6/uL Hgb 14.3 (14.0-18.0) g/dl Hct 40.5 L (42.0-52.0) % MCV 88.8 (80.0-98.0) fL MCH 31.4 (27.0-33.0) pg MCHC 35.3 (31.0-36.0) g/dl RDW 12.9 (11.0-16.0) % Plt Count 215 (160-400) X10*3/uL MPV 8.8 L (9.4-12.4) fL Immature Gran % (Auto) 0.3 (0.0-0.4) % Neut % (Auto) 66.5 (45-73) % Lymph % (Auto) 21.6 (20-40) % [place] % (Auto) 9.3 (2-11) % Eos % (Auto) 1.9 (0-4) % Baso % (Auto) 0.4 (0-2) % Lymph # (Auto) 1.9 (1.2-4.9) X10*3/uL [place] # (Auto) 0.8 (0.1-1.2) X10*3/uL Eos # (Auto) 0.2 (0.0-0.4) X10*3/uL Baso # (Auto) 0.0 (0.0-0.2) X10*3/uL Abs Immat Gran (auto) 0.03 (0.00-0.03) X10*3/uL Absolute Neuts (auto) 6.0 (2.0-8.3) x10*3/uL Absolute Nucleated RBC 0.000 (0.0-0.012) X10*3/uL Nucleated RBC % (auto) 0.0 (0.0-0.2) /100WBC PT 11.9 (10.9-12.4) SEC INR 1.0 (0.9-1.1) Sodium 138 (135-145) mmol/L Potassium 4.2 (3.3-5.1) mmol/L Chloride 105 (96-108) mmol/L Carbon Dioxide 20 L (22-29) mmol/L Anion Gap 17 (12-20) BUN 22 H (9-16) mg/dL Creatinine 0.85 (0.5-1.4) mg/dL Estim Creat Clear Calc 57.0 Estimated GFR > 60 Random Glucose 104 (60-115) mg/dL Calcium 9.4 D (8.4-10.2) mg/dL Total Bilirubin 0.4 (0.0-1.0) mg/dL Direct Bilirubin 0.1 (0.0-0.5) mg/dL AST 27 (5-37) U/L ALT 21 (0-40) U/L Alkaline Phosphatase 106 (39-117) U/L Total Protein 7.0 (6.5-8.0) g/dL Albumin 4.0 (3.5-5.0) g/dL Urine Color RED Urine Appearance Cloudy Urine pH 7.0 (5.0-9.0) Ur Specific [place] 1.025 (1.005-1.025) Urine Protein 300 (3+) H (Neg-Trace) mg/dL Urine Glucose (UA) Negative (Negative) mg/dL Urine Ketones Negative (Negative) mg/dL Urine Blood Large (3+) H (Negative) Urine Nitrite Negative (Negative) Ur Leukocyte Esterase Trace H (Negative) Urine RBC >20 H (0-2) /HPF Urine WBC 0-5 (0-5) /HPF Ur Squamous Epith Cells 0-2 (0-2) /HPF Urine Bacteria None Seen (None Seen) Hyaline Casts 0-2 (0-2) /LPF Discharge Plan Discharge Clinical Impression: Hematuria Patient Disposition: Home, Self-Care Instructions: Mendez Catheter Placement and Care (ED), Hematuria (ED) Additional Instructions: Drink plenty of fluids Follow up with urologist/PCP in 3- 4 days for further evaluation Report to the ER if increased blood in the urine Prescriptions: No Action trimethoprim 100 mg tablet 100 mg PO DAILY 10 Days Qty: 10 0RF ciprofloxacin HCl [Cipro] 250 mg tablet 250 mg PO Q12H Qty: 28 0RF terazosin 5 mg capsule 5 mg PO BEDTIME 90 Days Qty: 90 1RF finasteride 5 mg tablet 5 mg PO DAILY 90 Days Qty: 90 1RF Referrals: Navid Newberry MD [Physician] - 3 days Interventions: ED Discharge Assessment Last Done: 06/01/24 18:43 Print Language: Azerbaijani
[2024-06-01 14:05] LABS: Basophils Percent Auto 0.4 % (0-2); Eosinophils Absolute Auto 0.2 X10*3/uL (0.0-0.4); Eosinophils Percent Auto 1.9 % (0-4); Hematocrit 40.5 % (42.0-52.0); Hemoglobin 14.3 g/dl (14.0-18.0); Imm Gran Abs Auto 0.03 X10*3/uL (0.00-0.03); Imm Gran Pct Auto 0.3 % (0.0-0.4); Lymphocytes Absolute Auto 1.9 X10*3/uL (1.2-4.9); Lymphocytes Percent Auto 21.6 % (20-40); MANUAL DIFF FLAG NO; Mean Corpuscular HGB Conc 35.3 g/dl (31.0-36.0); Mean Corpuscular Hemoglobin 31.4 pg (27.0-33.0); Mean Corpuscular Volume 88.8 fL (80.0-98.0); Mean Platelet Volume 8.8 fL (9.4-12.4); Monocytes Absolute Auto 0.8 X10*3/uL (0.1-1.2); Monocytes Percent Auto 9.3 % (2-11); Neutrophils Percent Auto 66.5 % (45-73); Platelet Count 215 X10*3/uL (160-400); Red Blood Count 4.56 X10*6/uL (4.60-5.80); Red Cell Distribution Width 12.9 % (11.0-16.0)
[2024-06-01 14:11] LABS: Prothrombin Time 11.9 SEC (10.9-12.4)
[2024-06-01 14:21] LABS: Alanine Aminotransferase 21 U/L (0-40); Alkaline Phosphatase 106 U/L (39-117); Anion Gap 17 (12-20); Aspartate Amino Transferase 27 U/L (5-37); Bilirubin Direct 0.1 mg/dL (0.0-0.5); Bilirubin Total 0.4 mg/dL (0.0-1.0); Blood Urea Nitrogen 22 mg/dL (9-16); Calcium 9.4 mg/dL (8.4-10.2); Carbon Dioxide 20 mmol/L (22-29); Chloride 105 mmol/L (96-108); Estimated Glomerular Filt Rate > 60; Glucose Random 104 mg/dL (60-115); Potassium 4.2 mmol/L (3.3-5.1); Sodium 138 mmol/L (135-145)
[2024-06-01 15:18] LABS: Appearance Urine Cloudy; Color Urine RED; Glucose Urine UA Negative (Negative); Leukocyte Esterase Urine Trace (Negative); Nitrite Urine Negative (Negative); Specific Gravity - Urine 1.025 (1.005-1.025); UMIC TRIGGER UACC YES; Urine Blood Large (3+) (Negative); Urine Ketones Negative (Negative); Urine Protein 300 (3+) mg/dL (Neg-Trace)
[2024-06-01 16:15] LABS: Bacteria Urine None Seen (None Seen); RBC Urine >20 /HPF (0-2); Squamous Epithelial Cell Urine 0-2 /HPF (0-2); WBC Urine 0-5 /HPF (0-5)
[2024-06-01 16:16] LABS: Hyaline Casts Urine 0-2 /LPF (0-2)
[2024-06-01 16:24] VITALS: BP 154/79; PULSE 81; RESP 13; TEMP 36.8; O2SAT 96
[2024-06-01] MEDS: Lidocaine HCl 2 % Urojet 10 ML JEL.PF.APP TOPICAL (17:17)
--- NOTE | 2024-06-01 17:17 | PC.NURSE ---
3 way saucedo placed, patient tolerated well. manual irrigation performed, no blood clots observed while irrigating. provider at bedside for further manual irrigation, no clots observed. no CBI fluids running at this time.
[2024-06-01 18:00] VITALS: BP 163/76; PULSE 83; RESP 15; TEMP 36.8; O2SAT 96
[2024-06-01 18:43] VITALS: BP 163/76; PULSE 83; RESP 15; TEMP 36.8; O2SAT 96
--- NOTE | 2024-06-01 18:47 | PC.NURSE ---
upon discharge, patient began to have hematuria once again. provider at bedside - clots noted at this time. plan for admission and cbi
[2024-06-01 19:45] VITALS: BP 157/72; PULSE 72; RESP 18; TEMP 36.9; O2SAT 97
--- NOTE | 2024-06-01 19:46 | MHC.EDTECH ---
This tech took over care of patient at 1900,rounded and introduced self to pt,vitals taken,belongings list completed,copy placed in chart. Emptied 2500 from Mendez bag (Continuous bladder Irrigation) RN made aware
--- NOTE | 2024-06-01 20:28 | MHC.EDTECH ---
Emptied,2200 from Andrea for CBI,RN aware
--- NOTE | 2024-06-01 20:31 | PM.IMHP ---
History of Present Illness Date of Service: 06/01/24 Chief Complaint: Hematuria This is a 83-year-old male with pertinent history of BPH, benign hemangioma of the liver who presents to the emergency department for evaluation of hematuria. Patient states he started noticing blood in urine on the day of presentation. It is painless. Later in the day he also noticed clots. No abdominal pain, nausea or vomiting. No fever or chills. No chest pain, palpitations, shortness of breath, changes in bowel habits. Patient was previously admitted in January of 2021 for hematuria. At that time, he underwent cystoscopy with clot evacuation and green light laser enucleation of the prostate. In the emergency department, CBI initiated Review of Systems Constitutional: Constitutional: Reports no additional constitutional complaints Cardiovascular: Cardiovascular: Reports no additional cardiovascular complaints Respiratory: Respiratory: Reports no additional respiratory complaints Gastrointestinal: Gastrointestinal: Reports no additional gastrointestinal complaints Genitourinary: Genitourinary: Reports hematuria [facility] Medical History Gluten free diet Prostate mass Acute urinary retention Family History Brother Prostate cancer Surgical History H/O hernia repair Social History Household Members: Family Housing: House Do you presently have visiting nurse or other home services: No Comment: high fall d/t CBI Patient Tobacco Use Status: Former Tobacco user Tobacco use type: Cigarette Years Smoked: 5 Advance Directives: No Advance Directives Information Provided: No service: No Current occupational status: retired Meds Allergies Allergy/AdvReac Type Severity Reaction Status Date / Time bee pollen [bee stings] Allergy Swelling Verified 06/01/24 13:42 gluten Allergy Rash Verified 06/01/24 20:10 Penicillins Allergy Anaphylaxis Verified 06/01/24 13:42 Physical Exam Vital Signs and Narrative: Vital Signs: Last Vital Signs Temp 98.4 F 06/01/24 19:45 Pulse 72 06/01/24 19:45 Resp 18 06/01/24 19:45 BP 157/72 H 06/01/24 19:45 Pulse Ox 97 06/01/24 19:45 O2 Del Method Room Air 06/01/24 19:45 BMI result Body Mass Index 24.1 Elderly male lying in bed in no distress Neck supple, no JVD Regular rate and rhythm, S1-S2 heard Regular breath sounds bilaterally, no wheezing or crackles appreciated Abdomen soft nontender, no guarding, no rigidity Patient is awake, alert and oriented to self, place, time and person ; no focal motor deficit Psych: Normal mood No pedal edema Results Labs 06/01/24 13:59 06/01/24 13:59 Labs: Laboratory Results - last 24 hr 06/01/24 06/01/24 13:59 15:06 MCV 88.8 MCH 31.4 MCHC 35.3 RDW 12.9 Plt Count 215 MPV 8.8 L Immature Gran % (Auto) 0.3 Neut % (Auto) 66.5 Lymph % (Auto) 21.6 [place] % (Auto) 9.3 Eos % (Auto) 1.9 Baso % (Auto) 0.4 Lymph # (Auto) 1.9 [place] # (Auto) 0.8 Eos # (Auto) 0.2 Baso # (Auto) 0.0 Abs Immat Gran (auto) 0.03 Absolute Neuts (auto) 6.0 Absolute Nucleated RBC 0.000 Nucleated RBC % (auto) 0.0 PT 11.9 INR 1.0 Anion Gap 17 Estim Creat Clear Calc 57.0 Estimated GFR > 60 Random Glucose 104 Calcium 9.4 D Total Bilirubin 0.4 Direct Bilirubin 0.1 AST 27 ALT 21 Alkaline Phosphatase 106 Total Protein 7.0 Albumin 4.0 Urine Color RED Urine Appearance Cloudy Urine pH 7.0 Ur Specific [place] 1.025 Urine Protein 300 (3+) H Urine Glucose (UA) Negative Urine Ketones Negative Urine Blood Large (3+) H Urine Nitrite Negative Ur Leukocyte Esterase Trace H Urine RBC >20 H Urine WBC 0-5 Ur Squamous Epith Cells 0-2 Urine Bacteria None Seen Hyaline Casts 0-2 Assessment and Plan (1) Hematuria: Status: Acute Plan This is a 83-year-old male with pertinent history of BPH, benign hemangioma of the liver who presents to the emergency department for evaluation of hematuria. #. Painless hematuria: Will admit patient with cardiac monitoring. CBI initiated in the ER. Closely monitor H&H. Consulted Urology, appreciate assistance. CT abdomen/pelvis pending #. BPH: ?not on home prescription medications Med rec pending DVT prophylaxis: Mechanical Full code Admit as inpatient and will require two night minimum hospital stay for evaluation of hematuria, close monitoring of H&H (as above), which is not possible in a lesser acute setting. Specialist consult pending Quality Stroke Does the patient have a stroke diagnosis?: No VTE Prior VTE?: No VTE Risk Level:: Medical - moderate - high VTE Device Contraindication: N/A - Device Ordered VTE Drug Contraindication: Treatment Not Indicated
--- NOTE | 2024-06-01 21:21 | MHC.EDTECH ---
Emptied 1800MLS from Andrea BARILLAS RN aware
[2024-06-01] MEDS: Lactated Ringers 1,000 ML 999 ML IV (21:34)
--- NOTE | 2024-06-01 22:05 | MHC.EDTECH ---
Emptied 2300MLS from ERAN Mendez running at this time RN aware
--- NOTE | 2024-06-01 22:15 | PC.NURSE ---
20g IV access established in right AC. LR infusing as ordered. 3rd & 4th bags of NS (3000 mL/bag) hung and infusing for continuous bladder irrigation. Equal intake and output via 3 way catheter. Admission to 474, report given to Manda Elliott RN. Transferred to floor without issue.
[2024-06-01 22:21] VITALS: BMI 24.6
[2024-06-01] MEDS: 0.9 % Sodium Chloride Flush 3 ML SYRINGE IVFLUSH (23:00)
[2024-06-02] VITALS (7 sets, daily range): BP systolic 154–169; BP diastolic 57–78; PULSE 63–68; RESP 16–20; TEMP 36.4–37.1; O2SAT 93–99
[2024-06-02] MEDS: iohexoL 350 MG/ML 100 ML INFUS..BTL IV (00:11)
[2024-06-02 06:27] LABS: MANUAL DIFF FLAG NO
[2024-06-02 06:42] LABS: Basophils Percent Auto 0.5 % (0-2); Eosinophils Absolute Auto 0.1 X10*3/uL (0.0-0.4); Eosinophils Percent Auto 1.3 % (0-4); Hematocrit 41.2 % (42.0-52.0); Hemoglobin 13.9 g/dl (14.0-18.0); Imm Gran Abs Auto 0.03 X10*3/uL (0.00-0.03); Imm Gran Pct Auto 0.3 % (0.0-0.4); Lymphocytes Absolute Auto 1.7 X10*3/uL (1.2-4.9); Mean Corpuscular HGB Conc 33.7 g/dl (31.0-36.0); Mean Corpuscular Hemoglobin 31.1 pg (27.0-33.0); Mean Corpuscular Volume 92.2 fL (80.0-98.0); Mean Platelet Volume 9.3 fL (9.4-12.4); Monocytes Percent Auto 11.5 % (2-11); Neutrophils Absolute Auto 5.7 x10*3/uL (2.0-8.3); Neutrophils Percent Auto 66.4 % (45-73); Platelet Count 192 X10*3/uL (160-400); Red Blood Count 4.47 X10*6/uL (4.60-5.80); White Blood Count 8.6 X10*3/uL (4.8-10.8)
[2024-06-02 06:53] LABS: Anion Gap 14 (12-20); Blood Urea Nitrogen 17 mg/dL (9-16); Calcium 9.1 mg/dL (8.4-10.2); Carbon Dioxide 21 mmol/L (22-29); Chloride 106 mmol/L (96-108); Creatinine Clr Calc Pharmacy 58.4; Estimated Glomerular Filt Rate > 60; Glucose Random 81 mg/dL (60-115); Potassium 4.5 mmol/L (3.3-5.1); Sodium 136 mmol/L (135-145)
--- NOTE | 2024-06-02 08:55 | PHA.MEDREC ---
Addendum entered by Zhao Winkler 06/02/24 09:00: reviewed Original Note: Pharmacy Consult ? Medication Reconciliation Pharmacy has completed the medication reconciliation. Spoke with patient and he stated hes taking 2 medications from the brand [employer], he states hes taking a Multivitamin-Mineral Complex Powder taking 2 scoops daily and an Oseto FX Powder 1 scoop daily and he claims he took them both yesterday morning.
[2024-06-02] MEDS: 0.9 % Sodium Chloride Flush 3 ML SYRINGE IVFLUSH ×2 (09:00→16:34)
--- NOTE | 2024-06-02 11:49 | HO.PM.IMPN ---
Subjective Subjective Date of Service: 06/02/24 Interval History: painless hematuria not on blood thinners no fever Review of Systems Review of Systems: Yes all other systems are reviewed and are negative Physical Exam Vital Signs: Vital Signs: Last Vital Signs Temp 97.6 F 06/02/24 08:00 Pulse 64 06/02/24 08:00 Resp 17 06/02/24 08:00 BP 163/57 H 06/02/24 08:00 Pulse Ox 98 06/02/24 08:00 O2 Del Method Room Air 06/02/24 08:00 BMI result Body Mass Index 24.6 Gen: in no acute distress HEENT: sclera anicteric, moist mucus membranes Neck: supple Lungs: clear to auscultation bilaterally Heart: regular rate and rhythm, no murmurs Abd: soft, non-tender, non-distended : CBI very slightly tinged pink Ext: no edema Skin: warm/well-perfused Neuro: alert and oriented x3, no focal findings Psych: appropriate affect Objective Data Active Medications Acetaminophen (Acetaminophen 325 Mg Tablet) 650 mg PO Q6H PRN PRN Reason: Pain, Mild (Pain Scale 1-3), fever or headache Calcium Carbonate (Calcium Carbonate 750 Mg Tab.Chew) 750 mg PO Q4H PRN PRN Reason: Heartburn Magnesium Hydroxide (Milk Of Magnesia 30 Ml Oral.Susp) 30 ml PO DAILY PRN PRN Reason: Constipation Melatonin (Melatonin 3 Mg Tablet) 6 mg PO BEDTIME PRN PRN Reason: Insomnia Ondansetron HCl (Ondansetron Hcl 4 Mg/2 Ml Vial) 4 mg IVPUSH Q8H PRN PRN Reason: Nausea and Vomiting Sodium Chloride (0.9 % Sodium Chloride Flush 3 Ml Syringe) [facility] Last Admin: 06/02/24 09:00 Dose: 3 ml Documented By: KATHI Labs 06/02/24 06:02 06/02/24 06:02 Labs: Laboratory Results - last 24 hr 06/01/24 06/01/24 06/02/24 13:59 15:06 06:02 MCV 88.8 92.2 MCH 31.4 31.1 MCHC 35.3 33.7 RDW 12.9 13.0 Plt Count 215 192 MPV 8.8 L 9.3 L Immature Gran % (Auto) 0.3 0.3 Neut % (Auto) 66.5 66.4 Lymph % (Auto) 21.6 20.0 Schley % (Auto) 9.3 11.5 H Eos % (Auto) 1.9 1.3 Baso % (Auto) 0.4 0.5 Lymph # (Auto) 1.9 1.7 Schley # (Auto) 0.8 1.0 Eos # (Auto) 0.2 0.1 Baso # (Auto) 0.0 0.0 Abs Immat Gran (auto) 0.03 0.03 Absolute Neuts (auto) 6.0 5.7 Absolute Nucleated RBC 0.000 0.000 Nucleated RBC % (auto) 0.0 0.0 PT 11.9 INR 1.0 Anion Gap 17 14 Estim Creat Clear Calc 57.0 58.4 Estimated GFR > 60 > 60 Random Glucose 104 81 Calcium 9.4 D 9.1 Total Bilirubin 0.4 Direct Bilirubin 0.1 AST 27 ALT 21 Alkaline Phosphatase 106 Total Protein 7.0 Albumin 4.0 Urine Color RED Urine Appearance Cloudy Urine pH 7.0 Ur Specific [place] 1.025 Urine Protein 300 (3+) H Urine Glucose (UA) Negative Urine Ketones Negative Urine Blood Large (3+) H Urine Nitrite Negative Ur Leukocyte Esterase Trace H Urine RBC >20 H Urine WBC 0-5 Ur Squamous Epith Cells 0-2 Urine Bacteria None Seen Hyaline Casts 0-2 Impressions Abdomen/Pelvis CT 06/01/24 23:52 IMPRESSION: *Mendez catheter terminating within the urinary bladder. Findings suspicious for adherent thrombus at the terminus of the Mendez catheter. The urinary bladder is markedly distended. The Mendez catheter may be obstructed by adherent thrombus. No hydronephrosis. No urolithiasis. No suspicious renal lesions. *Marked diffuse enlargement of the prostate. The prostate measures 8 cm in diameter. *Single 6.5 cm mass within the left lobe of the liver unchanged compared with 01/16/[address]-guided biopsy 02/14/2021. Electronically signed by: Govind Ballard MD 06/02/2024 12:30 AM [facility] Assessment and Plan (1) Hematuria: Status: Acute Plan d2 for 83yo M with BPH, benign hemangioma of liver presenting with painless hematuria - continue CBI, Urology consult pending VTE ppx - SCDs, no heparin dispo - TBD In my clinical judgment, the patient requires continued inpatient hospitalization for the following reasons: CBI Total time managing care of this patient today: 35 minutes. Quality Stroke Does the patient have a stroke diagnosis?: No VTE Prior VTE?: No VTE Risk Level:: Medical - moderate - high VTE Device Contraindication: N/A - Device Ordered VTE Drug Contraindication: Treatment Not Indicated
--- NOTE | 2024-06-02 14:00 | MHC.CM.PN ---
IMM 06/02. Pt self-care, lives at home with 2 roommates. HCP on file and verified. Pt will arrange his own transport home. Pt does not know the name of his PCP.
--- NOTE | 2024-06-02 17:47 | PC.NURSE ---
Addendum entered by Mame Corona RN 06/02/24 17:53: on this RN shift 18,000 ( 6 bag of 3,000ml over course of shift - see log for specific times) in CBI with 20,020 out - true urine 1220ml - Original Note: Pt continues with CBI; light pink urine - had to hand irrigate x2 with some clots and shreds. goes through avg 1 bag q90min Pt tolerating well except the two times when pt complaining of pain which subsided after irrigation and removing clot. Urology consult pending
[2024-06-03] MEDS: 0.9 % Sodium Chloride Flush 3 ML SYRINGE IVFLUSH ×3 (00:45→20:04)
[2024-06-03 04:00] VITALS: BP 166/73; PULSE 62; RESP 16; TEMP 36.4; O2SAT 97
[2024-06-03 07:13] VITALS: BP 146/72; PULSE 63; RESP 19; TEMP 36.3; O2SAT 97
--- NOTE | 2024-06-03 09:03 | PM.UROCN ---
History of Present Illness Consult details Consult date: 06/03/24 Narrative: Urology Consult for Gross Hematuria 83-year-old male with pertinent history of BPH, benign hemangioma of the liver who presented to the emergency department on 06/01/24 for hematuria. Patient states he started noticing blood in urine on the day of presentation. It is painless. Later in the day he also noticed clots. The patient stated the episode of blood in the urine started after he became constipated and was bearing down to try to evacuate the stool. The patient was started on CBI. On evaluation, urine currently clear with CBI on hold. Review of Systems Review of Systems: Yes all other systems are reviewed and are negative Constitutional: Constitutional: Reports no additional constitutional complaints Eyes: Eyes: Reports no additional eye complaints ENT: Reports system reviewed and no additional complaints, except as documented Cardiovascular: Cardiovascular: Reports no additional cardiovascular complaints Respiratory: Respiratory: Reports no additional respiratory complaints Gastrointestinal: Gastrointestinal: Reports no additional gastrointestinal complaints Genitourinary: Genitourinary: Reports as per HPI Musculoskeletal: Musculoskeletal: Reports no additional musculoskeletal complaints Integumentary/Breasts: Skin/Breast: Reports system reviewed and no additional complaints, except as docu Neurologic: Reports system reviewed and no additional complaints, except as documented Psychiatric: Psychiatric: Reports no additional psychiatric complaints Endocrine: Endocrine: Reports no additional endocrine complaints Hematologic/Lymphatic: Hematologic/Lymphatic: Reports no additional hematologic/lymphatic complaints Allergic/Immunologic: Allergic/Immunologic: Reports no additional allergic/immunologic complaints [facility] Past Medical History Medical History Gluten free diet Prostate mass Acute urinary retention Family History Family History Brother Prostate cancer Surgical History Surgical History H/O hernia repair Social History Social History Household Members: Other Housing: Other Housing Other:: rent room in house Do you presently have visiting nurse or other home services: No Comment: high fall d/t CBI Patient Tobacco Use Status: Former Tobacco user Tobacco use type: Cigarette Years Smoked: 5 service: No Current occupational status: retired Meds Allergies Allergy/AdvReac Type Severity Reaction Status Date / Time bee pollen [bee stings] Allergy Swelling Verified 06/01/24 13:42 gluten Allergy Rash Verified 06/01/24 20:10 Penicillins Allergy Anaphylaxis Verified 06/01/24 13:42 Active Medications: Current Medications Acetaminophen (Acetaminophen 325 Mg Tablet) 650 mg PO Q6H PRN PRN Reason: Pain, Mild (Pain Scale 1-3), fever or headache Calcium Carbonate (Calcium Carbonate 750 Mg Tab.Chew) 750 mg PO Q4H PRN PRN Reason: Heartburn Magnesium Hydroxide (Milk Of Magnesia 30 Ml Oral.Susp) 30 ml PO DAILY PRN PRN Reason: Constipation Melatonin (Melatonin 3 Mg Tablet) 6 mg PO BEDTIME PRN PRN Reason: Insomnia Ondansetron HCl (Ondansetron Hcl 4 Mg/2 Ml Vial) 4 mg IVPUSH Q8H PRN PRN Reason: Nausea and Vomiting Sodium Chloride (0.9 % Sodium Chloride Flush 3 Ml Syringe) [facility] Last Admin: 06/03/24 08:43 Dose: 3 ml Home Medications ?Medication ?Instructions ?Recorded ?Confirmed ?Last Taken ?Type Multi-Vitamin & Mineral Complex 16 g PO DAILY 06/02/24 06/02/24 06/01/24 History Powder Osteo Fx 12.7 g PO DAILY 06/02/24 06/02/24 06/01/24 History Physical Exam Vital Signs: Vital Signs: Last Vital Signs Temp 97.3 F 06/03/24 07:13 Pulse 63 06/03/24 07:13 Resp 19 06/03/24 07:13 BP 146/72 H 06/03/24 07:13 Pulse Ox 97 06/03/24 07:13 O2 Del Method Room Air 06/03/24 07:13 BMI result Body Mass Index 24.6 Const: General: healthy appearing, no acute distress and well developed Orientation/consciousness: patient oriented x3 HEENT: Head: Yes normocephalic and Yes atraumatic Eyes: Conjunctivae: conjunctivae normal Neck: Neck: Yes normal visual inspection Chest: Chest palpation & inspection: normal inspection of the chest Resp: Effort & Inspection: normal respiratory effort Cardio: Rate: regular rate GI: Inspection: Yes normal to inspection Palpation (GI): Soft to palpation : Other: saucedo in place draining clear urine, CBI on hold Penis: normal penis and circumcised Scrotum: scrotum normal Neuro: General: patient oriented x3 Extrem: General: No pedal edema Psych: Appearance: grossly normal Affect: normal affect Results Labs 06/02/24 06:02 06/02/24 06:02 Labs: Urine 06/01/24 Range/Units 15:06 Urine Color RED Urine Appearance Cloudy Urine pH 7.0 (5.0-9.0) Ur Specific [place] 1.025 (1.005-1.025) Urine Protein 300 (3+) H (Neg-Trace) mg/dL Urine Glucose (UA) Negative (Negative) mg/dL Imaging Abdomen CT scan report/results: report reviewed and image reviewed CT scan - pelvis: report reviewed and image reviewed Additional studies: Date of Service: 06/01/24 CT ABDOMEN AND PELVIS WITH CONTRAST CLINICAL INFORMATION: Hematuria. COMPARISON: CT guided liver biopsy 02/14/2021, CT abdomen and pelvis 01/16/2021. TECHNIQUE: Multidetector volumetric images were obtained from the superior aspect of the liver through the pubic symphysis following administration 100 mL of Omnipaque 350 intravenous contrast. Sagittal and coronal reformatted images were obtained on the technologist's workstation. Oral contrast: No This CT examination was performed using dose optimization techniques as appropriate, variously including the following: *Automated exposure control *Adjustment of mA and/or kV according to patient size (this includes techniques or standardized protocols for targeted exams where dose is matched to indication/reason for exam; i.e. extremities or head) *Use of iterative reconstruction technique DLP: 377 mGy-cm FINDINGS: LUNG BASES: The visualized lung bases are unremarkable. LIVER, GALLBLADDER, AND BILIARY TREE: A 6.5 cm heterogeneous hypodense mass within the left lobe of the liver is unchanged appreciably compared with 01/16/2021. A vague 6 mm subcapsular hypodensity within segment 6 of the liver (series 3 image 21) is unchanged compared with 01/16/2021. The gallbladder is unremarkable with no evidence of radiopaque gallstones, gallbladder wall thickening, or obvious pericholecystic inflammatory changes. PANCREAS: Unremarkable. SPLEEN: Unremarkable. ADRENAL GLANDS: An 11 mm nodule of the left adrenal gland (19 Hounsfield units) is unchanged compared with 01/16/2021 and on the basis of fpc interval stability is benign in appearance. Solely on the basis of this examination, no additional imaging follow-up is warranted. KIDNEYS AND URETERS: A small number of bilateral rounded low density subcentimeter foci are noted within the kidneys and are too small to specifically characterize but are overwhelmingly likely to be benign and represent benign, simple cyst. On the basis of this examination, no additional imaging follow-up is clearly warranted. No urolithiasis identified. No ureterectasis. BLADDER: The bladder is distended measuring 8.8 cm in diameter. A Saucedo catheter terminates within the lumen of the urinary bladder. High density material (60 Hounsfield units) appears to be adherent to the terminus of the Saucedo catheter may represent thrombus. A Saucedo catheter balloon is not visualized. Intraluminal gas is noted within the urinary bladder in close proximity to the possible thrombus noted above. Additional nondependent intraluminal gas is noted within the urinary bladder. An approximate 1.2 cm diameter diverticulum of the right parasagittal base of the urinary bladder is noted. GASTROINTESTINAL TRACT: A moderate quantity of stool is present throughout the colon. No colonic dilatation noted. Normal appearance of the appendix (series 4 image 422) No free intraperitoneal fluid or gas collections identified. No inflammatory changes of the sigmoid mesentery or small bowel mesentery. Normal appearance of the visualized components of the superior mesenteric artery system. Normal appearance of the stomach and duodenum. ABDOMINAL WALL: No significant hernia is appreciated. LYMPH NODES: Normal. VASCULAR: Mild-moderate scattered calcific and noncalcific atherosclerosis PELVIC VISCERA: The prostate is markedly enlarged measuring 8 cm in diameter. OSSEOUS STRUCTURES: No suspicious skeletal abnormalities identified. Multilevel intervertebral disc space narrowing and endplate discogenic changes of the lumbar spine. IMPRESSION: *Saucedo catheter terminating within the urinary bladder. Findings suspicious for adherent thrombus at the terminus of the Saucedo catheter. The urinary bladder is markedly distended. The Saucedo catheter may be obstructed by adherent thrombus. No hydronephrosis. No urolithiasis. No suspicious renal lesions. *Marked diffuse enlargement of the prostate. The prostate measures 8 cm in diameter. Assessment and Plan (1) Hematuria: Status: Acute (2) BPH w urinary obs/LUTS: Status: Acute (3) Enlarged prostate: Status: Acute Plan Voiding trial recommend proscar, flomax outpatient follow up Procedures Date of Service Date of Service: 06/04/24
--- NOTE | 2024-06-03 11:12 | PC.NURSE ---
per MD order, CBI paused, saucedo removed at 1100. pt d/t void at [id number]
[2024-06-03 11:21] VITALS: BP 142/67; PULSE 69; RESP 18; TEMP 36.8; O2SAT 96
--- NOTE | 2024-06-03 12:36 | P.PNIM_ITS ---
Subjective Subjective Date of Service: 06/03/24 Interval History: urine irrigating clear this AM Review of Systems Review of Systems: Yes all other systems are reviewed and are negative Physical Exam 2 Vital Signs: Vital Signs: Last Vital Signs Temp 98.3 F 06/03/24 11:21 Pulse 69 06/03/24 11:21 Resp 18 06/03/24 11:21 BP 142/67 H 06/03/24 11:21 Pulse Ox 96 06/03/24 11:21 O2 Del Method Room Air 06/03/24 11:21 BMI result Body Mass Index 24.6 Gen: in no acute distress HEENT: sclera anicteric, moist mucus membranes Neck: supple Lungs: clear to auscultation bilaterally Heart: regular rate and rhythm, no murmurs Abd: soft, non-tender, non-distended : CBI running clear Ext: no edema Skin: warm/well-perfused Neuro: alert and oriented x3, no focal findings Psych: appropriate affect Objective Data Active Medications Acetaminophen (Acetaminophen 325 Mg Tablet) 650 mg PO Q6H PRN PRN Reason: Pain, Mild (Pain Scale 1-3), fever or headache Calcium Carbonate (Calcium Carbonate 750 Mg Tab.Chew) 750 mg PO Q4H PRN PRN Reason: Heartburn Magnesium Hydroxide (Milk Of Magnesia 30 Ml Oral.Susp) 30 ml PO DAILY PRN PRN Reason: Constipation Melatonin (Melatonin 3 Mg Tablet) 6 mg PO BEDTIME PRN PRN Reason: Insomnia Ondansetron HCl (Ondansetron Hcl 4 Mg/2 Ml Vial) 4 mg IVPUSH Q8H PRN PRN Reason: Nausea and Vomiting Polyethylene Glycol (Polyethylene Glycol 3350 17 Gm Powd.Pack) 17 gm PO DAILY [facility] Last Admin: 06/03/24 11:46 Dose: Not Given Documented By: MIGUE Non-Admin Reason: Patient Refused Sodium Chloride (0.9 % Sodium Chloride Flush 3 Ml Syringe) 3 ml IVFLUSH QSHIFT [facility] Last Admin: 06/03/24 08:43 Dose: 3 ml Documented By: MIGUE Labs 06/02/24 06:02 06/02/24 06:02 Assessment and Plan (1) Hematuria: Status: Acute Plan d3 for 83yo M with BPH, benign hemangioma of liver presenting with painless hematuria - continue CBI, Urology consulted; trial to void; start finasteride + tamsulosin VTE ppx - SCDs, no heparin dispo - TBD In my clinical judgment, the patient requires continued inpatient hospitalization for the following reasons: CBI Total time managing care of this patient today: 35 minutes. Quality Stroke Does the patient have a stroke diagnosis?: No VTE Prior VTE?: No VTE Risk Level:: Medical - moderate - high VTE Device Contraindication: N/A - Device Ordered VTE Drug Contraindication: Treatment Not Indicated
[2024-06-03] MEDS: Finasteride 5 MG TABLET PO (14:20)
[2024-06-03 15:22] VITALS: BP 126/62; PULSE 66; RESP 18; TEMP 36.7; O2SAT 97
[2024-06-03 20:00] VITALS: BP 125/57; PULSE 72; RESP 17; TEMP 37.4; O2SAT 97
[2024-06-03] MEDS: Tamsulosin HCL 0.4 MG CAPSULE PO (20:04)
[2024-06-03 23:25] VITALS: BP 144/64; PULSE 61; RESP 17; TEMP 37.1; O2SAT 96
[2024-06-04 03:22] VITALS: BP 125/63; PULSE 70; RESP 16; TEMP 36.9; O2SAT 96
[2024-06-04 07:54] VITALS: BP 126/60; PULSE 64; RESP 16; TEMP 36.8; O2SAT 95
[2024-06-04] MEDS: 0.9 % Sodium Chloride Flush 3 ML SYRINGE IVFLUSH ×2 (09:22→21:09)
[2024-06-04] MEDS: polyethylene glycoL 3350 17 GM POWD.PACK PO (09:22)
[2024-06-04] MEDS: Finasteride 5 MG TABLET PO (09:22)
[2024-06-04 12:00] VITALS: BP 141/62; PULSE 64; RESP 16; TEMP 36.6; O2SAT 98
--- NOTE | 2024-06-04 14:01 | MHC.CM.PN ---
Per rounds and EMR review, pt. is not ready for DC, he is being treated for CBI. CM will follow for DC needs.
[2024-06-04 15:37] VITALS: BP 104/67; PULSE 80; RESP 18; TEMP 36.3; O2SAT 97
--- NOTE | 2024-06-04 15:39 | HO.PM.IMPN ---
Subjective Subjective Date of Service: 06/04/24 Interval History: Mendez removed and voided but having gross hematuria again no pain Review of Systems Review of Systems: Yes all other systems are reviewed and are negative Physical Exam Vital Signs: Vital Signs: Last Vital Signs Temp 97.4 F 06/04/24 15:37 Pulse 80 06/04/24 15:37 Resp 18 06/04/24 15:37 BP 104/67 06/04/24 15:37 Pulse Ox 97 06/04/24 15:37 O2 Del Method Room Air 06/04/24 15:37 BMI result Body Mass Index 24.6 Gen: in no acute distress HEENT: sclera anicteric, moist mucus membranes Neck: supple Lungs: clear to auscultation bilaterally Heart: regular rate and rhythm, no murmurs Abd: soft, non-tender, non-distended Ext: no edema Skin: warm/well-perfused Neuro: alert and oriented x3, no focal findings Psych: appropriate affect Objective Data Active Medications Acetaminophen (Acetaminophen 325 Mg Tablet) 650 mg PO Q6H PRN PRN Reason: Pain, Mild (Pain Scale 1-3), fever or headache Calcium Carbonate (Calcium Carbonate 750 Mg Tab.Chew) 750 mg PO Q4H PRN PRN Reason: Heartburn Finasteride (Finasteride 5 Mg Tablet) 5 mg PO DAILY [facility] Last Admin: 06/04/24 09:22 Dose: 5 mg Documented By: MIGUE Magnesium Hydroxide (Milk Of Magnesia 30 Ml Oral.Susp) 30 ml PO DAILY PRN PRN Reason: Constipation Melatonin (Melatonin 3 Mg Tablet) 6 mg PO BEDTIME PRN PRN Reason: Insomnia Ondansetron HCl (Ondansetron Hcl 4 Mg/2 Ml Vial) 4 mg IVPUSH Q8H PRN PRN Reason: Nausea and Vomiting Polyethylene Glycol (Polyethylene Glycol 3350 17 Gm Powd.Pack) 17 gm PO DAILY [facility] Last Admin: 06/04/24 09:22 Dose: 17 gm Documented By: MIGUE Sodium Chloride (0.9 % Sodium Chloride Flush 3 Ml Syringe) 3 ml IVFLUSH QSHIFT [facility] Last Admin: 06/04/24 09:22 Dose: 3 ml Documented By: MIGUE Tamsulosin HCl (Tamsulosin Hcl 0.4 Mg Capsule) 0.4 mg PO BEDTIME [facility] Last Admin: 06/03/24 20:04 Dose: 0.4 mg Documented By: BIANKA Labs 06/02/24 06:02 06/02/24 06:02 Assessment and Plan (1) Hematuria: Status: Acute Plan d4 for 83yo M with BPH, benign hemangioma of liver presenting with painless hematuria BPH with bleeding - discussed with Urology, replace Mendez and resume CBI - started finasteride + tamsulosin VTE ppx - SCDs, no heparin dispo - eventually home In my clinical judgment, the patient requires continued inpatient hospitalization for the following reasons: CBI Total time managing care of this patient today: 35 minutes. Quality Stroke Does the patient have a stroke diagnosis?: No VTE Prior VTE?: No VTE Risk Level:: Medical - moderate - high VTE Device Contraindication: N/A - Device Ordered VTE Drug Contraindication: Treatment Not Indicated
[2024-06-04] MEDS: Lidocaine HCl 2 % Urojet 10 ML JEL.PF.APP TOPICAL (16:42)
--- NOTE | 2024-06-04 18:53 | PC.NURSE ---
3 ways saucedo inserted with multiple manual flush attempts w large blood clots and red punch color output. CBI hang and running. will cont to monitor report given to incoming RN
[2024-06-04 19:40] VITALS: BP 140/65; PULSE 66; RESP 18; TEMP 36.7; O2SAT 96
[2024-06-04] MEDS: Tamsulosin HCL 0.4 MG CAPSULE PO (21:09)
[2024-06-04 23:10] VITALS: BP 145/69; PULSE 62; RESP 18; TEMP 36.3; O2SAT 97
[2024-06-05 03:27] VITALS: BP 130/62; PULSE 60; RESP 18; TEMP 36.3; O2SAT 97
[2024-06-05 07:28] VITALS: BP 154/67; PULSE 63; RESP 19; TEMP 36.7; O2SAT 97
[2024-06-05] MEDS: Finasteride 5 MG TABLET PO (08:33)
[2024-06-05] MEDS: 0.9 % Sodium Chloride Flush 3 ML SYRINGE IVFLUSH ×2 (08:34→16:52)
--- NOTE | 2024-06-05 10:16 | HO.PM.IMPN ---
Subjective Subjective Date of Service: 06/05/24 Interval History: Follow up hematuria Mendez removed and voided but having gross hematuria again CBI replaced clear liquid this morning, clamp no pain Review of Systems Review of Systems: Yes all other systems are reviewed and are negative Physical Exam Vital Signs: Vital Signs: Last Vital Signs Temp 98.0 F 06/05/24 07:28 Pulse 63 06/05/24 07:28 Resp 19 06/05/24 07:28 BP 154/67 H 06/05/24 07:28 Pulse Ox 97 06/05/24 07:28 O2 Del Method Room Air 06/05/24 07:28 BMI result Body Mass Index 24.6 Appearing in no acute distress lung sounds are clear to auscultation heart regular rate rhythm, clear S1, S2 positive bowel sounds, abdomen is soft, nontender neuro patient is alert x3, no focal deficits Objective Data Active Medications Acetaminophen (Acetaminophen 325 Mg Tablet) 650 mg PO Q6H PRN PRN Reason: Pain, Mild (Pain Scale 1-3), fever or headache Calcium Carbonate (Calcium Carbonate 750 Mg Tab.Chew) 750 mg PO Q4H PRN PRN Reason: Heartburn Finasteride (Finasteride 5 Mg Tablet) 5 mg PO DAILY [facility] Last Admin: 06/05/24 08:33 Dose: 5 mg Documented By: WILBUR Magnesium Hydroxide (Milk Of Magnesia 30 Ml Oral.Susp) 30 ml PO DAILY PRN PRN Reason: Constipation Melatonin (Melatonin 3 Mg Tablet) 6 mg PO BEDTIME PRN PRN Reason: Insomnia Ondansetron HCl (Ondansetron Hcl 4 Mg/2 Ml Vial) 4 mg IVPUSH Q8H PRN PRN Reason: Nausea and Vomiting Polyethylene Glycol (Polyethylene Glycol 3350 17 Gm Powd.Pack) 17 gm PO DAILY [facility] Last Admin: 06/05/24 08:33 Dose: Not Given Documented By: WILBUR Non-Admin Reason: Patient Refused Sodium Chloride (0.9 % Sodium Chloride Flush 3 Ml Syringe) 3 ml IVFLUSH QSHIFT [facility] Last Admin: 06/05/24 08:34 Dose: 3 ml Documented By: WILBUR Tamsulosin HCl (Tamsulosin Hcl 0.4 Mg Capsule) 0.4 mg PO BEDTIME [facility] Last Admin: 06/04/24 21:09 Dose: 0.4 mg Documented By: ANNETTE Labs 06/02/24 06:02 06/02/24 06:02 Assessment and Plan (1) Hematuria: Status: Acute Plan 83yo M with BPH, benign hemangioma of liver presenting with painless hematuria BPH with bleeding discussed with Urology, Mendez and CBI started finasteride + tamsulosin Normocytic anemia stable HH VTE ppx SCDs, no heparin Attending Dr. Echols dispo home when medically clear In my clinical judgment, the patient requires continued inpatient hospitalization for the following reasons: CBI Total time managing care of this patient today: 35 minutes. Quality Stroke Does the patient have a stroke diagnosis?: No VTE Prior VTE?: No VTE Risk Level:: Medical - moderate - high VTE Device Contraindication: N/A - Device Ordered VTE Drug Contraindication: Treatment Not Indicated
[2024-06-05 11:45] VITALS: BP 156/73; PULSE 73; RESP 19; TEMP 36.3; O2SAT 97
[2024-06-05 16:00] VITALS: BP 131/67; PULSE 72; RESP 18; TEMP 36.3; O2SAT 98
[2024-06-05 19:41] VITALS: BP 138/68; PULSE 75; RESP 18; TEMP 36.5; O2SAT 97
[2024-06-05] MEDS: Tamsulosin HCL 0.4 MG CAPSULE PO (21:25)
[2024-06-05 23:33] VITALS: BP 143/69; PULSE 77; RESP 18; TEMP 36.6; O2SAT 95
[2024-06-06 04:00] VITALS: BP 130/73; PULSE 75; RESP 18; TEMP 36.3; O2SAT 96
[2024-06-06 08:00] VITALS: BP 146/67; PULSE 66; RESP 18; TEMP 37.4; O2SAT 96
[2024-06-06] MEDS: Finasteride 5 MG TABLET PO (08:22)
[2024-06-06] MEDS: 0.9 % Sodium Chloride Flush 3 ML SYRINGE IVFLUSH ×2 (08:22→20:31)
--- NOTE | 2024-06-06 09:18 | HO.PM.IMPN ---
Subjective Subjective Date of Service: 06/06/24 Interval History: Follow up hematuria Mendez removed and voided but having gross hematuria again, CBI replaced no pain Review of Systems Review of Systems: Yes all other systems are reviewed and are negative Physical Exam Vital Signs: Vital Signs: Last Vital Signs Temp 99.4 F 06/06/24 08:00 Pulse 66 06/06/24 08:00 Resp 18 06/06/24 08:00 BP 146/67 H 06/06/24 08:00 Pulse Ox 96 06/06/24 08:00 O2 Del Method Room Air 06/06/24 08:00 BMI result Body Mass Index 24.6 Appearing in no acute distress lung sounds are clear to auscultation heart regular rate rhythm, clear S1, S2 positive bowel sounds, abdomen is soft, nontender neuro patient is alert x3, no focal deficits continue CBI Objective Data Active Medications Acetaminophen (Acetaminophen 325 Mg Tablet) 650 mg PO Q6H PRN PRN Reason: Pain, Mild (Pain Scale 1-3), fever or headache Calcium Carbonate (Calcium Carbonate 750 Mg Tab.Chew) 750 mg PO Q4H PRN PRN Reason: Heartburn Finasteride (Finasteride 5 Mg Tablet) 5 mg PO DAILY [facility] Last Admin: 06/06/24 08:22 Dose: 5 mg Documented By: WILBUR Magnesium Hydroxide (Milk Of Magnesia 30 Ml Oral.Susp) 30 ml PO DAILY PRN PRN Reason: Constipation Melatonin (Melatonin 3 Mg Tablet) 6 mg PO BEDTIME PRN PRN Reason: Insomnia Ondansetron HCl (Ondansetron Hcl 4 Mg/2 Ml Vial) 4 mg IVPUSH Q8H PRN PRN Reason: Nausea and Vomiting Polyethylene Glycol (Polyethylene Glycol 3350 17 Gm Powd.Pack) 17 gm PO DAILY [facility] Last Admin: 06/06/24 08:56 Dose: Not Given Documented By: WILBUR Non-Admin Reason: Patient Refused Sodium Chloride (0.9 % Sodium Chloride Flush 3 Ml Syringe) 3 ml IVFLUSH QSHIFT [facility] Last Admin: 06/06/24 08:22 Dose: 3 ml Documented By: WILBUR Tamsulosin HCl (Tamsulosin Hcl 0.4 Mg Capsule) 0.4 mg PO BEDTIME [facility] Last Admin: 06/05/24 21:25 Dose: 0.4 mg Documented By: KING Labs 06/02/24 06:02 06/02/24 06:02 Assessment and Plan (1) Hematuria: Status: Acute Plan 83yo M with BPH, benign hemangioma of liver presenting with painless hematuria BPH with bleeding discussed with Urology, Mendez and CBI started finasteride + tamsulosin still with punch colored urine and small clots reconsult urology Normocytic anemia stable HH VTE ppx SCDs, no heparin Attending Dr. Charlton dispo home when medically clear In my clinical judgment, the patient requires continued inpatient hospitalization for the following reasons: CBI Total time managing care of this patient today: 35 minutes. Quality Stroke Does the patient have a stroke diagnosis?: No VTE Prior VTE?: No VTE Risk Level:: Medical - moderate - high VTE Device Contraindication: N/A - Device Ordered VTE Drug Contraindication: Treatment Not Indicated
[2024-06-06 11:52] VITALS: BP 124/58; PULSE 71; RESP 16; TEMP 36.5; O2SAT 96
[2024-06-06 15:06] VITALS: BP 147/78; PULSE 78; RESP 20; TEMP 37; O2SAT 92
--- NOTE | 2024-06-06 15:19 | MHC.CM.PN ---
EMR reviewed and per MD rounds, pt is not medically cleared for discharge due to management of hematuria and receiving CBI.
[2024-06-06 19:13] VITALS: BP 152/77; PULSE 77; RESP 20; TEMP 37; O2SAT 97
[2024-06-06] MEDS: Tamsulosin HCL 0.4 MG CAPSULE PO (20:30)
[2024-06-07] VITALS: BP 145/83; PULSE 82; RESP 18; TEMP 37; O2SAT 97
[2024-06-07 04:00] VITALS: BP 133/70; PULSE 73; RESP 16; TEMP 36.6; O2SAT 95
[2024-06-07 07:17] VITALS: BP 122/64; PULSE 71; RESP 16; TEMP 36.7; O2SAT 94
[2024-06-07] MEDS: polyethylene glycoL 3350 17 GM POWD.PACK PO (07:31)
[2024-06-07] MEDS: Finasteride 5 MG TABLET PO (07:31)
[2024-06-07] MEDS: 0.9 % Sodium Chloride Flush 3 ML SYRINGE IVFLUSH (07:32)
--- NOTE | 2024-06-07 09:58 | PC.NURSE ---
Addendum entered by Tamara Weaver RN 06/07/24 13:57: F/C removed per MD orderers at 11:34, pt tolerated well. Pt has voided 2x since f/c removal total of 150ml pink tinged urine, no clots, LAITH Prince aware. Pt denies pain/discomfort at this time. Original Note: CBI clear yellow no clots/shreds, per LAITH Prince hold CBI infusion.
[2024-06-07 10:04] LABS: Hematocrit 40.3 % (42.0-52.0); Hemoglobin 13.4 g/dl (14.0-18.0); Mean Corpuscular HGB Conc 33.3 g/dl (31.0-36.0); Mean Corpuscular Volume 93.3 fL (80.0-98.0); Mean Platelet Volume 9.3 fL (9.4-12.4); Platelet Count 202 X10*3/uL (160-400); Red Blood Count 4.32 X10*6/uL (4.60-5.80); Red Cell Distribution Width 13.5 % (11.0-16.0); White Blood Count 13.3 X10*3/uL (4.8-10.8)
[2024-06-07 10:23] LABS: Anion Gap 15 (12-20); Blood Urea Nitrogen 27 mg/dL (9-16); Calcium 9.3 mg/dL (8.4-10.2); Carbon Dioxide 22 mmol/L (22-29); Chloride 108 mmol/L (96-108); Estimated Glomerular Filt Rate > 60; Glucose Random 145 mg/dL (60-115); Potassium 4.1 mmol/L (3.3-5.1); Sodium 141 mmol/L (135-145)
--- NOTE | 2024-06-07 11:28 | P.PNUR_ITS ---
Subjective Subjective Date of Service: 07/08/24 Interval history: Patient seen Mendez catheter irrigated with hematuria Remove Mendez catheter Follow-up office Physical Exam 2 Vital Signs: Vital Signs: Last Vital Signs Temp 98.1 F 06/07/24 07:17 Pulse 71 06/07/24 07:17 Resp 16 06/07/24 07:17 BP 122/64 06/07/24 07:17 Pulse Ox 94 06/07/24 07:17 O2 Del Method Room Air 06/07/24 07:17 BMI result Body Mass Index 24.6 Const: General: cooperative, healthy appearing, comfortable and no acute distress Orientation/consciousness: patient oriented x3 HEENT: Face and sinus: Yes normal facial exam Mouth: moist mucous membranes Neck: Neck: Yes normal visual inspection, Yes full ROM and Yes trachea midline Chest: Chest palpation & inspection: normal inspection of the chest Resp: Effort & Inspection: normal respiratory effort, able to speak in complete sentences and no respiratory distress GI: Inspection: Yes normal to inspection Back/Spine/Pelvis: Cervical Spine: normal cervical lordosis Thoracic/Lumbar Spine: thoracic and lumbar spine normal to inspection Skin: General skin exam: no rashes or lesions noted Neuro: General: patient oriented x3, tone normal and moves all extremities Extrem: General: Yes normal to inspection and Yes capillary refill normal Urology Results Labs 06/07/24 09:53 06/07/24 09:53 Labs: Laboratory Results - last 24 hr 06/07/24 09:53 WBC 13.3 H RBC 4.32 L Hgb 13.4 L Hct 40.3 L MCV 93.3 MCH 31.0 MCHC 33.3 RDW 13.5 Plt Count 202 MPV 9.3 L Absolute Nucleated RBC 0.000 Nucleated RBC % (auto) 0.0 Sodium 141 Potassium 4.1 Chloride 108 Carbon Dioxide 22 Anion Gap 15 BUN 27 H Creatinine 0.95 Estim Creat Clear Calc 51.0 Estimated GFR > 60 Random Glucose 145 H Calcium 9.3 Progress Note: A&P Assessment and plan (1) Elevated PSA: Status: Acute (2) Enlarged prostate: Status: Inactive (3) BPH w urinary obs/LUTS: Status: Acute Plan Office follow-up catheter removal Time Spent With Patient Time: Total time managing care of this patient today ____ minutes. Progress Note: Quality Stroke Does the patient have a stroke diagnosis?: No
[2024-06-07 11:52] VITALS: BP 147/69; PULSE 77; RESP 16; TEMP 37.1; O2SAT 97
--- NOTE | 2024-06-07 14:19 | PM.DS ---
DS: Providers Provider Date of Service: 06/07/24 Date of admission: 06/01/24 20:29 Date of discharge: 06/07/24 Primary care physician: None Physician Consults: 06/01/24 20:40 Consult to Urology Routine Consulting Provider: Shanel Fan Reason for consultation: hematuria Attending physician on discharge: Elizabeth Turner Discharging clinician: Laura Prince DS: Diagnosis Discharge Diagnosis (1) Elevated PSA: Status: Acute (2) Enlarged prostate: Status: Acute (3) BPH w urinary obs/LUTS: Status: Acute DS: Summary Hospital Course Hospital Course: From H&P on the day of admission This is a 83-year-old male with pertinent history of BPH, benign hemangioma of the liver who presents to the emergency department for evaluation of hematuria. Patient states he started noticing blood in urine on the day of presentation. It is painless. Later in the day he also noticed clots. No abdominal pain, nausea or vomiting. No fever or chills. No chest pain, palpitations, shortness of breath, changes in bowel habits. Patient was previously admitted in January of 2021 for hematuria. At that time, he underwent cystoscopy with clot evacuation and green light laser enucleation of the prostate. In the emergency department, CBI initiated BPH wuth unary obs/LUTS/elevated PSA and hematuria Saucedo placed and started on CBI. seen by urology and started on finasteride + tamsulosin. after cbi stopped had recurrent punch colored urine and small clots and cbi was resumed. Urine clear and re-evaluated by urology, saucedo catheter irrigated, no clots. Recommended voiding trial. patient was able to urinate. Renal function stable. urology recommends outpatient follow up in the office. H/H has been stable. elevated wbc count likely due to instrumentation with saucedo/cbi. no fever or dysuria, clinically well appearing. Time Attestation Discharge Coordination Time (in mins): 36 Quality: Safe Use of Opioids Does Pt have an Active Cancer Diagnosis on the Problem List?: No Quality: Stroke Does the patient have a stroke diagnosis?: No Physical Exam Vital Signs: Vital Signs: Last Vital Signs Temp 98.7 F 06/07/24 11:52 Pulse 77 06/07/24 11:52 Resp 16 06/07/24 11:52 BP 147/69 H 06/07/24 11:52 Pulse Ox 97 06/07/24 11:52 O2 Del Method Room Air 06/07/24 11:52 BMI result Body Mass Index 24.6 Const: General: cooperative, comfortable, no acute distress, alert and awake Nutritional Appearance: average body habitus Orientation/consciousness: patient oriented x3 Resp: Effort & Inspection: normal respiratory effort, able to speak in complete sentences, no respiratory distress and no use of accessory muscles Cardio: Rate: regular rate GI: Inspection: No distended Palpation (GI): Soft to palpation and nontender Neuro: General: patient oriented x3, moves all extremities and CN's II-XI intact bilaterally Extrem: General: Yes no pedal edema DS: Data Data Completed and Pending Completed studies during hospitalization [Text1]: Procedures Excision of Prostate, Via Natural or Artificial Opening Endoscopic (01/16/21) Extirpation of Matter from Bladder, Via Natural or Artificial Opening Endoscopic (01/16/21) Transfusion of Nonautologous Red Blood Cells into Peripheral Vein, Percutaneous Approach (01/16/21) Labs on day of discharge: Laboratory Results - last 24 hr 06/07/24 09:53 WBC 13.3 H RBC 4.32 L Hgb 13.4 L Hct 40.3 L MCV 93.3 MCH 31.0 MCHC 33.3 RDW 13.5 Plt Count 202 MPV 9.3 L Absolute Nucleated RBC 0.000 Nucleated RBC % (auto) 0.0 Sodium 141 Potassium 4.1 Chloride 108 Carbon Dioxide 22 Anion Gap 15 BUN 27 H Creatinine 0.95 Estim Creat Clear Calc 51.0 Estimated GFR > 60 Random Glucose 145 H Calcium 9.3 Discharge Plan Discharge Anticipated Discharge Date/Time: 06/07/24 15:39 Patient Disposition: Home, Self-Care Discharge Diagnosis: enlarged prostate/elevated PSA/hematuria Referrals: Navid Newberry MD [Physician] - 1 Week Physician,None [Primary Care Provider] - 1 Week Discharge Medications: New tamsulosin 0.4 mg Capsule 0.4 mg PO BEDTIME 90 Days Qty: 90 0RF finasteride 5 mg Tablet 5 mg PO DAILY 90 Days Qty: 90 0RF Continued Multi-Vitamin & Mineral Complex Powder powder 16 g PO DAILY Osteo Fx powder 12.7 g PO DAILY Discharge Orders: Discharge Order (Routine); Ordered 06/07/24 Ordered By: Laura Prince Activity on Discharge: As tolerated Stand Alone Forms: Patient Portal Discharge page Print Language: Mauritian Care Plan Goals: see below Health Concerns: enlarged prostate/elevated PSA/hematuria Plan of Treatment: start taking flomax and finasteride as prescribed Call to schedule follow-up appointment with Urology Assessment: see discharge summary Patient Instructions: Hematuria (ED)
[2024-06-07 15:08] VITALS: BP 146/69; PULSE 90; RESP 18; TEMP 37.2; O2SAT 99
[2024-06-07 15:43] VITALS: BP 146/69; PULSE 90; O2SAT 99
== END 2024-06-07 16:27 | disposition home or self-care (01) | DRG 696 ==
LOC: HO.ED 19:01 → HO.EDOVER 20:35 → HO.IMC 20:45 → HO.S3 06-06 10:04 → HO.IMC 06-06 10:17 → HO.S3 06-06 10:28
PROVIDERS: Nurse Practitioner Family; Admitting Provider Student in an Organized Health Care Education/Training Program; Emergency Provider Internal Medicine; Visit Provider Physician Assistant Medical
DX: R31.0 Gross hematuria (principal); N40.1 Benign prostatic hyperplasia with lower urinary tract symptoms; D64.9 Anemia, unspecified; N13.8 Other obstructive and reflux uropathy; R97.20 Elevated prostate specific antigen [PSA]; D18.09 Hemangioma of other sites; Z87.891 Personal history of nicotine dependence; Z79.899 Other long term (current) drug therapy
CPT/HCPCS: 36415; 74177; 80048; 80076; 81001; 85025; 85027; 85610; 97161; 99285; C1758; J7120; Q9967

== ENCOUNTER → 2024-06-01 20:29 | Outpatient (BNV) | payer MEDICARE, SELFPAY | PROVIDERS: Admitting Provider Student in an Organized Health Care Education/Training Program; Emergency Provider Internal Medicine; Visit Provider Urology | DX: R31.9 Hematuria, unspecified (principal); N40.1 Benign prostatic hyperplasia with lower urinary tract symptoms; N13.8 Other obstructive and reflux uropathy | CPT/HCPCS: 99222 ==

== ENCOUNTER → 2024-06-01 20:29 | Outpatient (BNV) | payer MEDICARE, SELFPAY | PROVIDERS: Admitting Provider Student in an Organized Health Care Education/Training Program; Emergency Provider Internal Medicine; Visit Provider Student in an Organized Health Care Education/Training Program | DX: R97.20 Elevated prostate specific antigen [PSA] (principal); N40.0 Benign prostatic hyperplasia without lower urinary tract symptoms; N40.1 Benign prostatic hyperplasia with lower urinary tract symptoms; N13.8 Other obstructive and reflux uropathy | CPT/HCPCS: 99222; 99232; 99239 ==

== ENCOUNTER 2024-06-13 17:37 | Inpatient (IN) | payer MEDICARE, SELFPAY ==
[2024-06-13] VITALS (13 sets, daily range): BP systolic 94–144; BP diastolic 29–69; PULSE 73–93; RESP 15–28; TEMP 37–40.2; O2SAT 92–98; BMI 21.5
--- NOTE | ~2024-06-13 | CT_ITS ---
EXAMINATION: CT ABDOMEN AND PELVIS WITH CONTRAST CLINICAL INFORMATION: Sepsis. COMPARISON: June 02, 2024 TECHNIQUE: Multidetector volumetric images were obtained from the superior aspect of the liver through the pubic symphysis following administration 85 mL of Omnipaque 350 intravenous contrast. Sagittal and coronal reformatted images were obtained on the technologist's workstation. Oral contrast: No This CT examination was performed using dose optimization techniques as appropriate, variously including the following: *Automated exposure control *Adjustment of mA and/or kV according to patient size (this includes techniques or standardized protocols for targeted exams where dose is matched to indication/reason for exam; i.e. extremities or head) *Use of iterative reconstruction technique DLP: 543 mGy-cm FINDINGS: LUNG BASES: There are linear bibasilar opacities associated with minimal pleural fluid on the left. LIVER, GALLBLADDER, AND BILIARY TREE: There is a stable mass left lobe of the liver measuring 7.1 cm. There is a stable 1.1 cm low-density lesion right lobe of the liver. There is no intrahepatic biliary duct dilatation. The gallbladder is unremarkable with no evidence of radiopaque gallstones, gallbladder wall thickening, or obvious pericholecystic inflammatory changes. PANCREAS: Unremarkable. SPLEEN: There is a small hypodensity extending through the superior aspect of the spleen not seen previously. ADRENAL GLANDS: There is a stable 1.3 cm low-density left adrenal nodule. KIDNEYS AND URETERS: The kidneys are normal in size and attenuation. There is a wedge-shaped defect lower pole right kidney not seen on prior. Multiple small stable renal cysts are again seen. There are prominent bilateral renal collecting systems. BLADDER: Significant urinary bladder wall thickening with some hypodense areas along the posterior urinary bladder wall. GASTROINTESTINAL TRACT: There are prominent fluid-filled possibly mildly thickened small bowel loops throughout. The appendix is visualized and is within normal limits. There is rectal thickening with a rectal tube in place. ABDOMINAL WALL: No significant hernia is appreciated. LYMPH NODES: Normal. VASCULAR: There is atherosclerotic plaque of the abdominal aorta. PELVIC VISCERA: The prostate gland is significantly enlarged measuring 9 x 8.6 x 8.2 cm. OSSEOUS STRUCTURES: There is diffuse thoracolumbar degenerative change. CT/CT abdomen pelvis w IV con IMPRESSION: 1. Significant urinary bladder wall thickening with some hypodense areas along the posterior urinary bladder wall. Correlation with urinalysis needed. 2. Prominent bilateral renal collecting systems likely related to outlet obstruction. 3. Wedge-shaped defect lower pole right kidney not seen on prior. Renal infarct suspected. 4. Small hypodensity extending through the superior aspect of the spleen not seen previously. This could be secondary to a splenic infarct. 5. Stable left adrenal nodule. 6. Stable hepatic mass. 7. Rectal wall thickening with rectal tube in place. 8. Prominent fluid-filled small bowel loops may be seen with enteritis. Correlation needed. 9. Bibasilar lung opacities likely atelectasis associated with a minimal left pleural effusion. Fleischner guidelines were followed. Electronically signed by: Jose Elias Rodarte MD 06/14/2024 01:17 AM [facility]
--- NOTE | ~2024-06-13 | CT_ITS ---
EXAMINATION: CT HEAD WITHOUT CONTRAST CT CERVICAL SPINE WITHOUT CONTRAST CLINICAL INFORMATION: Fall. COMPARISON: None available. TECHNIQUE: Contiguous axial imaging was performed from the skull base to vertex without intravenous administration of contrast. Contiguous axial imaging was performed from the upper chest through the skull base without intravenous administration of contrast. Coronal and sagittal reformats were obtained at the acquisition workstation. This CT examination was performed using dose optimization techniques as appropriate, variously including the following: *Automated exposure control. *Adjustment of mA and/or kV according to patient size (this includes techniques or standardized protocols for targeted exams where dose is matched to indication/reason for exam; i.e. extremities or head). *Use of iterative reconstruction technique. DLP: 1032 mGy-cm FINDINGS: Head: Chronic appearing lacunar infarct of the right lentiform nucleus. No additional loss of george-white matter differentiation. No evidence of acute intracranial hemorrhage. Scattered and partially confluent hypoattenuation in the periventricular and deep white matter are consistent with moderate microangiopathy. Proportional prominence of the ventricles and sulcal spaces without evidence of obstructive hydrocephalus. No abnormal mass effect or midline shift. No extra-axial fluid collections. No acute soft tissue or osseous abnormalities. Mild mucosal thickening of the paranasal sinuses. The mastoid air cells and middle ear cavities are clear. Cervical Spine: The atlantooccipital and atlantoaxial articulations remain well aligned. Mild degenerative stepwise retrolisthesis of C3-C6. Moderate degenerative anterolisthesis of C6 on C7. Otherwise, there is anatomic alignment of the vertebral bodies and posterior elements. No evidence of acute fracture or subluxation. The vertebral body heights are maintained. Advanced degenerative disc disease from C2-C6 and at C7-T1. Facet and uncovertebral joint arthropathy leads to osseous encroachment on the neural foramina from C2-C6. There is no prevertebral soft tissue swelling. There is a 1.5 cm hypoattenuating lesion in the posterior aspect of the left thyroid lobe. The remaining cervical soft tissues are within normal limits. The lung apices demonstrate no abnormalities. CT/CT cervical spine wo IV con IMPRESSION: 1. No evidence of acute intracranial hemorrhage or edematous territorial infarction. 2. Moderate underlying microangiopathy and generalized cerebral volume loss. 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 3. No evidence of acute fracture or traumatic subluxation of the cervical spine. Moderate multilevel degenerative spondyloarthropathy of the cervical spine. 4. There is a 1.5 cm hypoattenuating lesion in the posterior aspect of the left thyroid lobe. Recommend further characterization with thyroid ultrasound. Electronically signed by: Solo Canas DO 06/13/2024 08:02 PM [facility]
--- NOTE | ~2024-06-13 | XR_ITS ---
EXAMINATION: XR CHEST CLINICAL INFORMATION: sepsis COMPARISON: None available. TECHNIQUE: Frontal view of the chest was obtained. FINDINGS: The cardiac silhouette is normal. There is mild diffuse bronchial wall thickening. There are no areas of consolidation. There are no pleural effusions or pneumothoraces. Irregular enlarged heterogenous predominantly lucent lesion in the left proximal humerus. XR/XR chest 1V IMPRESSION: 1. Bronchial wall thickening may be infectious and/or inflammatory in etiology. 2. Irregular enlarged heterogenous predominantly lucent lesion in the left proximal humerus. Electronically signed by: Alexa Aldana MD 06/13/2024 08:53 PM [facility]
--- NOTE | ~2024-06-13 | XR_ITS ---
EXAMINATION: XR KNEE, LEFT CLINICAL INFORMATION: Left knee pain. COMPARISON: None available. TECHNIQUE: Three views of the left knee. FINDINGS: Severe medial as well as more moderate patellofemoral compartment joint space narrowing. Tricompartmental marginal osteophytes. No displaced fracture. No concerning lytic or blastic osseous lesion. Moderate joint effusion. Atherosclerotic calcifications. XR/XR knee LT 3V IMPRESSION: Tricompartmental osteoarthritis, most severe within the medial compartment. Moderate joint effusion. Electronically signed by: Thomas Tran MD 06/17/2024 05:53 PM EST
--- NOTE | 2024-06-13 18:32 | ECG_ITS ---
Test Reason : WEAKNESS Blood Pressure : / mmHG Vent. Rate : 085 BPM Atrial Rate : 085 BPM P-R Int : 158 ms QRS Dur : 094 ms QT Int : 358 ms P-R-T Axes : -09 024 051 degrees QTc Int : 426 ms Normal sinus rhythm Normal ECG No previous ECGs available Referred By: Topher Cameron Electronically Signed By:Trung Romo
[2024-06-13 18:47] LABS: Hematocrit 34.5 % (42.0-52.0); Hemoglobin 12.1 g/dl (14.0-18.0); Mean Corpuscular HGB Conc 35.1 g/dl (31.0-36.0); Mean Corpuscular Hemoglobin 31.4 pg (27.0-33.0); Mean Corpuscular Volume 89.6 fL (80.0-98.0); Mean Platelet Volume 8.7 fL (9.4-12.4); Platelet Count 116 X10*3/uL (160-400); Red Blood Count 3.85 X10*6/uL (4.60-5.80); Red Cell Distribution Width 13.2 % (11.0-16.0)
[2024-06-13 18:48] LABS: WBC ABN SCTR FOR CBC 1; White Blood Count 18.4 X10*3/uL (4.8-10.8)
[2024-06-13 19:08] LABS: Neutrophils Percent Manual 69 % (45-73)
[2024-06-13 19:10] LABS: Alanine Aminotransferase 35 U/L (0-40); Albumin Level 3.5 g/dL (3.5-5.0); Alkaline Phosphatase 90 U/L (39-117); Anion Gap 13 (12-20); Aspartate Amino Transferase 59 U/L (5-37); Band Neutrophils Percent 17 % (3-5); Bilirubin Total 0.6 mg/dL (0.0-1.0); Blood Urea Nitrogen 30 mg/dL (9-16); Calcium 9.2 mg/dL (8.4-10.2); Carbon Dioxide 24 mmol/L (22-29); Chloride 102 mmol/L (96-108); Creatinine Clr Calc Pharmacy 46.9; Dohle Bodies PRESENT; Estimated Glomerular Filt Rate > 60; Glucose Random 147 mg/dL (60-115); Lipase 11 U/L (8-78); Lymphocytes Absolute Manual 0.7 X10*3/uL (1.2-4.9); Lymphocytes Percent Manual 4 % (20-40); Metamyelocytes Absolute 1.1 X10*3/uL; Metamyelocytes Percent 6 %; Monocytes Absolute Manual 0.7 X10*3/uL (0.1-1.2); Monocytes Percent Manual 4 % (2-11); Neutrophils Absolute Manual 15.8 X10*3/uL (2.0-8.3); Platelet Estimate NORMAL (NORMAL); Platelet Morphology Comment NORMAL; Potassium 4.7 mmol/L (3.3-5.1); RBC Morphology NORMAL; Sodium 134 mmol/L (135-145); Total Protein 6.7 g/dL (6.5-8.0); Toxic Granulation PRESENT
--- NOTE | 2024-06-13 19:49 | PC.NURSE ---
Yovanny OZUNA made aware of vitals.
[2024-06-13 19:53] LABS: Appearance Urine Cloudy; Color Urine Dark Yellow; Glucose Urine UA Negative (Negative); Leukocyte Esterase Urine Moderate (2+) (Negative); Nitrite Urine Negative (Negative); PH 5.5 (5.0-9.0); Specific Gravity - Urine 1.025 (1.005-1.025); UMIC TRIGGER UACC YES; Urine Blood Moderate (2+) (Negative); Urine Ketones 15 mg/dL (Negative); Urine Protein 100 (2+) mg/dL (Neg-Trace)
--- NOTE | 2024-06-13 19:56 | ED.GENADULT ---
HPI - General Adult General Chief complaint: Fall Stated complaint: AMS, FALL +COLLAR PER EMS Time Seen by Provider: 06/13/24 17:45 Source: patient, RN notes reviewed and old records reviewed Mode of arrival: EMS Limitations: other (poor historian) History of Present Illness ED Provider: Nisha HPI narrative: 83-year-old male with past medical history significant for BPH, benign liver hemangioma presents for evaluation after a fall. EMS, the patient was found at the bottom of the stairs. Patient reports that he was taking laundry to the 2nd floor when he slid down the steps. He denies falling or hitting his head. He denies any pain. His story has somewhat changed. He had initially told the nurse that he slid down the steps on his buttocks He also said that he slid down on his stomach, it is unclear exactly what happened but EMS found him with a bottom of the stairs. The patient was admitted on 06/01/2024 and discharged on 06/07/2024 for hematuria. At the time he did have a Mendez catheter He no longer has the catheter and reports that he has been urinating frequently without blood He denies any cough, congestion, shortness of breath. Denies any abdominal pain, nausea vomiting, diarrhea. He has not noticed any fevers at home Related Data Home Medications ?Medication ?Instructions ?Recorded ?Confirmed Multi-Vitamin & Mineral Complex 16 g PO DAILY 06/02/24 06/02/24 Powder Osteo Fx 12.7 g PO DAILY 06/02/24 06/02/24 Previous Rx's ?Medication ?Instructions ?Recorded finasteride 5 mg tablet 5 mg PO DAILY 90 days #90 tabs 06/07/24 tamsulosin 0.4 mg capsule 0.4 mg PO BEDTIME 90 days #90 caps 06/07/24 Allergies Allergy/AdvReac Type Severity Reaction Status Date / Time bee pollen [bee stings] Allergy Swelling Verified 06/13/24 17:52 gluten Allergy Rash Verified 06/13/24 17:52 Penicillins Allergy Anaphylaxis Verified 06/13/24 17:52 Review of Systems Constitutional: Constitutional: Denies body ache(s), Denies chills, Reports fever(s) and Denies headache(s) Eyes: Eyes: Denies blurry vision ENT: Denies vertigo, Denies dizziness and Denies headache(s) Cardiovascular: Cardiovascular: Denies syncope, Denies rapid heart rate and Denies dyspnea Respiratory: Respiratory: Denies cough and Denies dyspnea Gastrointestinal: Gastrointestinal: Denies abdominal pain, Denies nausea and Denies vomiting Musculoskeletal: Musculoskeletal: Denies back pain Integumentary/Breasts: Skin/Breast: Denies rash Neurologic: Denies vertigo, Denies dizziness, Denies syncope and Denies headache(s) Psychiatric: Psychiatric: Denies anxiety [facility] Past Medical History Medical History Gluten free diet Prostate mass Acute urinary retention Surgical History H/O hernia repair Family History Family History Brother Prostate cancer Social History Social History Household Members: Other Housing: Other Housing Other:: rent room in house Do you presently have visiting nurse or other home services: No Comment: high fall d/t CBI Patient Tobacco Use Status: Former Tobacco user Tobacco use type: Cigarette Years Smoked: 5 Advance Directives: No Advance Directives Information Provided: No service: No Current occupational status: retired Physical Exam ED Vital Signs: Vital Signs - 24 hr 06/13/24 17:49 06/13/24 19:48 06/13/24 19:56 Temperature 98.6 F 104.3 F H Pulse Rate 86 87 93 Respiratory Rate 20 18 16 Blood Pressure 117/38 L 94/69 110/34 L Pulse Oximetry 97 96 96 Oxygen Delivery Method Room Air Room Air Room Air 06/13/24 20:13 06/13/24 20:38 06/13/24 20:56 Temperature 104.0 F H 103.3 F H Pulse Rate 81 80 75 Respiratory Rate 15 28 H 26 H Blood Pressure 110/29 L 104/33 L 97/32 L Pulse Oximetry 97 98 92 Oxygen Delivery Method Room Air Room Air 06/13/24 21:05 06/13/24 21:23 06/13/24 21:40 Temperature 102.2 F H 102 F H 101.7 F H Pulse Rate 78 80 Respiratory Rate 15 20 Blood Pressure 101/32 L 108/39 L Pulse Oximetry 93 94 Oxygen Delivery Method Room Air Room Air 06/13/24 22:41 06/13/24 23:07 06/13/24 23:36 Temperature 100.2 F 99.3 F 98.8 F Pulse Rate 77 76 73 Respiratory Rate 15 19 20 Blood Pressure 110/39 L 112/43 L 101/41 L Pulse Oximetry 92 94 93 Oxygen Delivery Method Room Air Room Air Room Air 06/13/24 23:52 06/14/24 00:45 Temperature 98.8 F 98.6 F Pulse Rate 76 82 Respiratory Rate 20 15 Blood Pressure 102/43 L 112/49 L Pulse Oximetry 93 94 Oxygen Delivery Method Room Air Room Air BMI result Body Mass Index 21.5 Const General: healthy appearing, comfortable, no acute distress, alert and awake Nutritional Appearance: well nourished Orientation/consciousness: patient oriented x3 HENMT Head: Yes normocephalic and Yes atraumatic Eyes Eyelids: Yes eyelids normal Conjunctivae: conjunctivae normal Sclerae: sclerae normal Corneas: corneas normal Pupils: Equal, round and reactive pupils present EOM: EOMs intact bilaterally Neck Neck: Yes full ROM Resp Effort & Inspection: normal respiratory effort, able to speak in complete sentences, no audible wheezes and not labored Auscultation: clear to auscultation bilaterally Cardio Rate: regular rate Rhythm: regular rhythm GI Inspection: No distended Palpation (GI): Soft to palpation, not firm, nontender, no guarding and not rigid Skin General skin exam: elasticity normal Neuro General: patient oriented x3 Cranial nerves: Yes Equal, round and reactive pupils present and Yes Bilaterally intact EOM present Cognition (Neuro): normal cognition Extrem Other: Moving all extremities well without any obvious deformities Course Reevaluation(s) Reevaluation #1: Patient's temperature was documented as 104.3. A sepsis alert was called. I did re-evaluate the patient he continues to have no pain, signs or symptoms. He does report frequent urination. He was recently catheterized so we will treat likely urosepsis with ceftriaxone. He was given normal saline 30 cc/kilogram. Sepsis focused exam performed Time: 19:57 Reevaluation #2: Patient's CT scan supports the diagnosis of urosepsis. We will discuss with the hospitalist for admission Time: 01:31 Medications Administered Discontinued Medications Generic Name Dose Route Start Last Admin Trade Name Leeann PRN Reason Stop Dose Admin Acetaminophen 975 mg 06/13/24 19:48 06/13/24 20:05 Acetaminophen 325 Mg Tablet PO 06/13/24 19:49 975 mg ONCE ONE Administration Ceftriaxone Sodium 1 gm 06/13/24 19:48 06/13/24 20:07 Ceftriaxone Sodium 1 Gm Vial IVPUSH 06/13/24 19:49 1 gm ONCE ONE Administration Sodium Chloride 1,926 mls @ 1,926 mls/hr 06/13/24 19:43 06/13/24 21:23 Ns 30 ml/kg infuse over 1 hr (1926 ml) 06/13/24 20:42 Infused IV Infusion .Q1H STA Albumin Human 100 mls @ 133.333 mls/hr 06/13/24 21:30 06/13/24 23:25 Kedbumin 25 % IV 06/13/24 23:14 Infused Q1H RAY Infusion Sodium Chloride 1,000 mls @ 999 mls/hr 06/13/24 21:30 06/13/24 23:35 Ns IV 06/13/24 22:30 Infused .Q1H1M RAY Infusion Iohexol 85 ml 06/13/24 22:38 06/13/24 22:38 Iohexol 350 Mg/Ml 100 Ml Infus..Btl IV 06/13/24 22:39 85 ml ONCE ONE Administration Medical Decision Making Medical Decision Making [facility] Narrative: 83-year-old male presents for evaluation after a fall. He is a very poor historian. He reports that he was on the ground for about an hour and could not get himself up prompting his landlord to call EMS. Plan for CT scan of the brain, cervical spine and basic labs including a CPK. Differential Diagnosis Differential Diagnoses: The differential diagnosis associated with the presentation includes Mechanical fall Syncope UTI Pneumonia Dehydration Rhabdomyolysis Admission/Observation Consideration of admission/observation: Escalation of care including admission/observation considered Patient found to have a temp of a 104.3? Consult Healthcare Provider Management of the patient was discussed with: Lapel Stitcher Lab Data [facility] Lab Attestation statement: I reviewed the patient's lab results. Leukocytosis to 18.4k with a left shift and bandemia of 17%. The patient does have a mild normocytic anemia. He was recently admitted for hematuria with clots. Chemistries are significant for a for, this may be related to urinating frequently and being on tamsulosin. His BUN is slightly elevated to 30 with a creatinine of 1.12. The patient's AST is slightly elevated at 59, LFTs are otherwise within normal limits. Patient's CK is elevated to 227 but does not meet criteria for rhabdomyolysis 06/13/24 18:43 06/13/24 18:43 Labs: Lab Results 06/13/24 06/13/24 06/13/24 Range/Units 18:43 19:42 20:07 WBC 18.4 H (4.8-10.8) X10*3/uL RBC 3.85 L (4.60-5.80) X10*6/uL Hgb 12.1 L (14.0-18.0) g/dl Hct 34.5 L (42.0-52.0) % MCV 89.6 (80.0-98.0) fL MCH 31.4 (27.0-33.0) pg MCHC 35.1 (31.0-36.0) g/dl RDW 13.2 (11.0-16.0) % Plt Count 116 L D (160-400) X10*3/uL MPV 8.7 L (9.4-12.4) fL Immature Gran % (Auto) Cancelled Neut % (Auto) Cancelled Lymph % (Auto) Cancelled Esmeralda % (Auto) Cancelled Eos % (Auto) Cancelled Baso % (Auto) Cancelled Lymph # (Auto) Cancelled Esmeralda # (Auto) Cancelled Eos # (Auto) Cancelled Baso # (Auto) Cancelled Abs Immat Gran (auto) Cancelled Absolute Neuts (auto) Cancelled Absolute Nucleated RBC 0.000 (0.0-0.012) X10*3/uL Nucleated RBC % (auto) 0.0 (0.0-0.2) /100WBC Neutrophils % (Manual) 69 (45-73) % Band Neutrophils % 17 H (3-5) % Lymphocytes % (Manual) 4 L (20-40) % Monocytes % (Manual) 4 (2-11) % Metamyelocytes % 6 % Abs Neuts (Manual) 15.8 H (2.0-8.3) X10*3/uL Lymphocytes # (Manual) 0.7 L (1.2-4.9) X10*3/uL Monocytes # (Manual) 0.7 (0.1-1.2) X10*3/uL Metamyelocytes # 1.1 X10*3/uL Toxic Granulation PRESENT Dohle Bodies PRESENT Platelet Estimate NORMAL (NORMAL) Plt Morphology Comment NORMAL RBC Morphology NORMAL Sodium 134 L (135-145) mmol/L Potassium 4.7 (3.3-5.1) mmol/L Chloride 102 (96-108) mmol/L Carbon Dioxide 24 (22-29) mmol/L Anion Gap 13 (12-20) BUN 30 H (9-16) mg/dL Creatinine 1.12 (0.5-1.4) mg/dL Estim Creat Clear Calc 46.9 Estimated GFR > 60 Random Glucose 147 H (60-115) mg/dL Lactic Acid 3.4 H* (0.5-2.0) mmol/L Lactic Acid F/U @ 2Hr (0.5-2.0) mmol/L Calcium 9.2 (8.4-10.2) mg/dL Total Bilirubin 0.6 (0.0-1.0) mg/dL AST 59 H (5-37) U/L ALT 35 (0-40) U/L Alkaline Phosphatase 90 (39-117) U/L Total Creatine Kinase 227 H (38-174) U/L Total Protein 6.7 (6.5-8.0) g/dL Albumin 3.5 (3.5-5.0) g/dL Lipase 11 (8-78) U/L Urine Color Dark Yellow Urine Appearance Cloudy Urine pH 5.5 (5.0-9.0) Ur Specific [place] 1.025 (1.005-1.025) Urine Protein 100 (2+) H (Neg-Trace) mg/dL Urine Glucose (UA) Negative (Negative) mg/dL Urine Ketones 15 (Negative) mg/dL Urine Blood Moderate (2+) H (Negative) Urine Nitrite Negative (Negative) Ur Leukocyte Esterase Moderate (2+) H (Negative) Urine RBC 6-10 H (0-2) /HPF Urine WBC >50 H (0-5) /HPF Ur Squamous Epith Cells 3-5 (0-2) /HPF Urine Bacteria Trace (None Seen) Hyaline Casts 3-5 (0-2) /LPF Influenza Type A (PCR) NEGATIVE (Negative) Influenza Type B (PCR) NEGATIVE (Negative) RSV RNA Qual (PCR) NEGATIVE (Negative) SARS-CoV-2 RNA (RT-PCR) NEGATIVE (Negative) 06/13/24 Range/Units 22:59 WBC (4.8-10.8) X10*3/uL RBC (4.60-5.80) X10*6/uL Hgb (14.0-18.0) g/dl Hct (42.0-52.0) % MCV (80.0-98.0) fL MCH (27.0-33.0) pg MCHC (31.0-36.0) g/dl RDW (11.0-16.0) % Plt Count (160-400) X10*3/uL MPV (9.4-12.4) fL Immature Gran % (Auto) Neut % (Auto) Lymph % (Auto) Esmeralda % (Auto) Eos % (Auto) Baso % (Auto) Lymph # (Auto) Esmeralda # (Auto) Eos # (Auto) Baso # (Auto) Abs Immat Gran (auto) Absolute Neuts (auto) Absolute Nucleated RBC (0.0-0.012) X10*3/uL Nucleated RBC % (auto) (0.0-0.2) /100WBC Neutrophils % (Manual) (45-73) % Band Neutrophils % (3-5) % Lymphocytes % (Manual) (20-40) % Monocytes % (Manual) (2-11) % Metamyelocytes % % Abs Neuts (Manual) (2.0-8.3) X10*3/uL Lymphocytes # (Manual) (1.2-4.9) X10*3/uL Monocytes # (Manual) (0.1-1.2) X10*3/uL Metamyelocytes # X10*3/uL Toxic Granulation Dohle Bodies Platelet Estimate (NORMAL) Plt Morphology Comment RBC Morphology Sodium (135-145) mmol/L Potassium (3.3-5.1) mmol/L Chloride (96-108) mmol/L Carbon Dioxide (22-29) mmol/L Anion Gap (12-20) BUN (9-16) mg/dL Creatinine (0.5-1.4) mg/dL Estim Creat Clear Calc Estimated GFR Random Glucose (60-115) mg/dL Lactic Acid (0.5-2.0) mmol/L Lactic Acid F/U @ 2Hr 1.0 (0.5-2.0) mmol/L Calcium (8.4-10.2) mg/dL Total Bilirubin (0.0-1.0) mg/dL AST (5-37) U/L ALT (0-40) U/L Alkaline Phosphatase (39-117) U/L Total Creatine Kinase (38-174) U/L Total Protein (6.5-8.0) g/dL Albumin (3.5-5.0) g/dL Lipase (8-78) U/L Urine Color Urine Appearance Urine pH (5.0-9.0) Ur Specific [place] (1.005-1.025) Urine Protein (Neg-Trace) mg/dL Urine Glucose (UA) (Negative) mg/dL Urine Ketones (Negative) mg/dL Urine Blood (Negative) Urine Nitrite (Negative) Ur Leukocyte Esterase (Negative) Urine RBC (0-2) /HPF Urine WBC (0-5) /HPF Ur Squamous Epith Cells (0-2) /HPF Urine Bacteria (None Seen) Hyaline Casts (0-2) /LPF Influenza Type A (PCR) (Negative) Influenza Type B (PCR) (Negative) RSV RNA Qual (PCR) (Negative) SARS-CoV-2 RNA (RT-PCR) (Negative) Discharge Plan Discharge Clinical Impression: Sepsis Patient Disposition: Admitted As Inpatient Print Language: Bruneian
[2024-06-13 19:58] LABS: Bacteria Urine Trace (None Seen); UACC Culture Trigger YES; WBC Urine >50 /HPF (0-5)
[2024-06-13] MEDS: Acetaminophen 325 MG TABLET 975 MG PO (20:05)
[2024-06-13] MEDS: SODIUM CHLORIDE 1926 ML IV (20:05)
[2024-06-13] MEDS: cefTRIAXone sodium 1 GM VIAL IVPUSH (20:07)
--- NOTE | 2024-06-13 20:07 | PC.NURSE ---
blood cultures obtained prior to administration of abx.
[2024-06-13 20:40] LABS: Lactic Acid 3.4 mmol/L (0.5-2.0)
[2024-06-13 20:58] LABS: Influenza A PCR NEGATIVE (Negative); Influenza B PCR NEGATIVE (Negative); Resp Syncy Virus RNA Qual PCR NEGATIVE (Negative); SARS COV2 PCR INHOUSE NEGATIVE (Negative)
--- NOTE | 2024-06-13 21:23 | PC.NURSE ---
Yovanny OZUNA made aware of BP. temp improving.
[2024-06-13] MEDS: Albumin Human 25 % 100 ML 133.33 ML IV ×2 (21:39→22:38)
[2024-06-13] MEDS: 0.9 % Sodium Chloride 1,000 ML 999 ML IV (21:39)
[2024-06-13 22:14] LABS: Reflex Lactate? Lactic Acid Added
[2024-06-13] MEDS: iohexoL 350 MG/ML 100 ML INFUS..BTL 85 ML IV (22:38)
--- NOTE | 2024-06-13 23:36 | PC.NURSE ---
Yovanny OZUNA aware of BP. no new orders at this time.
[2024-06-14] VITALS (12 sets, daily range): BP systolic 97–121; BP diastolic 40–60; PULSE 61–82; RESP 14–20; TEMP 36.4–37.3; O2SAT 93–100
--- NOTE | 2024-06-14 01:55 | P.HPHOSP_ITS ---
History of Present Illness Date of Service: 06/14/24 Attending physician on admission: Bhavani Sanches Chief Complaint: Crow Weber is 83 years old man with past medical history significant for benign hemangioma of the liver and BPH was brought to the emergency department after he sustained a fall. It seems like he was at the top of the stairs and took his shoes off sliding down the stairs on his blood. He did not report any headache, palpitations or dizziness. He also denied any acute cardiopulmonary or gastrointestinal symptoms. He denied any pain. He did not report any acute urinary symptoms. He has a fever but he is not aware of it. Recently, the patient was hospitalized and was discharged on June 07. He was hospitalized due to hematuria requiring Mendez placement and CBI. The Mendez was removed. He is not on blood thinners. In the ED, he was found to have fever (max 104.3). There is no tachycardia or hypotension. Blood workup was remarkable for leukocytosis of 18.4, hemoglobin of 12.1 and platelets 116. There was lactic acidosis of 3.4 for that normalized, most recent lactic acid is 1.0. There are no significant electrolyte imbalances. BUN is 30 and creatinine 1.12. LFTs are normal except for a slight elevation of AST. Urinalysis consistent with urinary tract infection. Viral testing for COVID-19, influenza and RSV is negative. CXR showed bronchial wall thickening may be infection and/or infectious in etiology, irregular enlarged heterogeneous predominantly lucent lesion in the left proximal humerus. Abdomen pelvis CT scan showed urinary bladder wall thickening, prominent bilateral renal collecting system likely related to outlet obstruction, suspected renal infarct suspected splenic infarct and prominent fluid-filled small bowel loops may be seen with enteritis and bibasilar lung opacities likely atelectasis associated with the minimal left pleural effusion. ED tx: NS 3 L bolus, ceftriaxone 1 g IV, acetaminophen 975 mg p.o., albumin 133 mL per hour. Review of Systems 2 Review of Systems: See HPI, limited pt poor historian. [facility] Medical History Gluten free diet Prostate mass Acute urinary retention Family History Brother Prostate cancer Surgical History H/O hernia repair Social History Household Members: Other Housing: Other Housing Other:: rent room in house Do you presently have visiting nurse or other home services: No Comment: high fall d/t CBI Patient Tobacco Use Status: Former Tobacco user Tobacco use type: Cigarette Years Smoked: 5 Advance Directives: No Advance Directives Information Provided: No service: No Current occupational status: retired Meds Allergies Allergy/AdvReac Type Severity Reaction Status Date / Time bee pollen [bee stings] Allergy Swelling Verified 06/13/24 17:52 gluten Allergy Rash Verified 06/13/24 17:52 Penicillins Allergy Anaphylaxis Verified 06/13/24 17:52 Active Medications: Current Medications Acetaminophen (Acetaminophen 325 Mg Tablet) 975 mg PO Q6H PRN PRN Reason: Pain, Mild (Pain Scale 1-3), fever or headache Ceftriaxone Sodium (Ceftriaxone Sodium 1 Gm Vial) 1 gm IVPUSH Q24H [facility] Heparin Sodium (Porcine) (Heparin Sodium,Porcine 5,000 Unit/Ml Vial) 5,000 unit SUBCUT Q12H [facility] Lactated Ringer's (Lr) 1,000 mls @ 100 mls/hr IVCONT .Q10H [facility] Stop: 06/14/24 11:59 Sodium Chloride (0.9 % Sodium Chloride Flush 3 Ml Syringe) 3 ml IVFLUSH QSHIFT [facility] Home Medications ?Medication ?Instructions ?Recorded ?Confirmed ?Last Taken ?Type Multi-Vitamin & Mineral Complex 16 g PO DAILY 06/02/24 06/02/24 06/01/24 History Powder Osteo Fx 12.7 g PO DAILY 06/02/24 06/02/24 06/01/24 History Physical Exam 2 Vital Signs and Narrative: Vital Signs: Last Vital Signs Temp 98.6 F 06/14/24 00:45 Pulse 82 06/14/24 00:45 Resp 15 06/14/24 00:45 BP 112/49 L 06/14/24 00:45 Pulse Ox 94 06/14/24 00:45 O2 Del Method Room Air 06/14/24 00:45 BMI result Body Mass Index 21.5 Constitutional - Awake and Alert, No apparent distress. Febrile. HEENT - PER, EOMI Heart - S1S2, RRR, No murmurs. Lungs - Normal lung expansion, Normal respiratory effort, No respiratory distress, CTA bilaterally Abdomem - NT / ND; +BS; No rebound or guarding Extremities - no calf tenderness bilaterally, no swelling Musculoskeletal - Normal inspection, normal ROM Skin - Warm/Dry Neurological - Alert & oriented x3 Psychological - Appropriate affect Results Labs 06/13/24 18:43 06/13/24 18:43 Labs: Laboratory Results - last 24 hr 06/13/24 06/13/24 06/13/24 18:43 19:42 20:07 MCV 89.6 MCH 31.4 MCHC 35.1 RDW 13.2 Plt Count 116 L D MPV 8.7 L Immature Gran % (Auto) Cancelled Neut % (Auto) Cancelled Lymph % (Auto) Cancelled [place] % (Auto) Cancelled Eos % (Auto) Cancelled Baso % (Auto) Cancelled Lymph # (Auto) Cancelled [place] # (Auto) Cancelled Eos # (Auto) Cancelled Baso # (Auto) Cancelled Abs Immat Gran (auto) Cancelled Absolute Neuts (auto) Cancelled Absolute Nucleated RBC 0.000 Nucleated RBC % (auto) 0.0 Neutrophils % (Manual) 69 Band Neutrophils % 17 H Lymphocytes % (Manual) 4 L Monocytes % (Manual) 4 Metamyelocytes % 6 Abs Neuts (Manual) 15.8 H Lymphocytes # (Manual) 0.7 L Monocytes # (Manual) 0.7 Metamyelocytes # 1.1 Toxic Granulation PRESENT Dohle Bodies PRESENT Platelet Estimate NORMAL Plt Morphology Comment NORMAL RBC Morphology NORMAL Anion Gap 13 Estim Creat Clear Calc 46.9 Estimated GFR > 60 Random Glucose 147 H Lactic Acid 3.4 H* Lactic Acid F/U @ 2Hr Calcium 9.2 Total Bilirubin 0.6 AST 59 H ALT 35 Alkaline Phosphatase 90 Total Creatine Kinase 227 H Total Protein 6.7 Albumin 3.5 Lipase 11 Urine Color Dark Yellow Urine Appearance Cloudy Urine pH 5.5 Ur Specific [place] 1.025 Urine Protein 100 (2+) H Urine Glucose (UA) Negative Urine Ketones 15 Urine Blood Moderate (2+) H Urine Nitrite Negative Ur Leukocyte Esterase Moderate (2+) H Urine RBC 6-10 H Urine WBC >50 H Ur Squamous Epith Cells 3-5 Urine Bacteria Trace Hyaline Casts 3-5 Influenza Type A (PCR) NEGATIVE Influenza Type B (PCR) NEGATIVE RSV RNA Qual (PCR) NEGATIVE SARS-CoV-2 RNA (RT-PCR) NEGATIVE 06/13/24 22:59 MCV MCH MCHC RDW Plt Count MPV Immature Gran % (Auto) Neut % (Auto) Lymph % (Auto) [place] % (Auto) Eos % (Auto) Baso % (Auto) Lymph # (Auto) [place] # (Auto) Eos # (Auto) Baso # (Auto) Abs Immat Gran (auto) Absolute Neuts (auto) Absolute Nucleated RBC Nucleated RBC % (auto) Neutrophils % (Manual) Band Neutrophils % Lymphocytes % (Manual) Monocytes % (Manual) Metamyelocytes % Abs Neuts (Manual) Lymphocytes # (Manual) Monocytes # (Manual) Metamyelocytes # Toxic Granulation Dohle Bodies Platelet Estimate Plt Morphology Comment RBC Morphology Anion Gap Estim Creat Clear Calc Estimated GFR Random Glucose Lactic Acid Lactic Acid F/U @ 2Hr 1.0 Calcium Total Bilirubin AST ALT Alkaline Phosphatase Total Creatine Kinase Total Protein Albumin Lipase Urine Color Urine Appearance Urine pH Ur Specific [place] Urine Protein Urine Glucose (UA) Urine Ketones Urine Blood Urine Nitrite Ur Leukocyte Esterase Urine RBC Urine WBC Ur Squamous Epith Cells Urine Bacteria Hyaline Casts Influenza Type A (PCR) Influenza Type B (PCR) RSV RNA Qual (PCR) SARS-CoV-2 RNA (RT-PCR) Imaging Radiologist's Impressions: Impressions Cervical Spine CT 06/13/24 18:51 IMPRESSION: 1. No evidence of acute intracranial hemorrhage or edematous territorial infarction. 2. Moderate underlying microangiopathy and generalized cerebral volume loss. 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 3. No evidence of acute fracture or traumatic subluxation of the cervical spine. Moderate multilevel degenerative spondyloarthropathy of the cervical spine. 4. There is a 1.5 cm hypoattenuating lesion in the posterior aspect of the left thyroid lobe. Recommend further characterization with thyroid ultrasound. Electronically signed by: Solo Canas DO 06/13/2024 08:02 PM [facility] Head CT 06/13/24 18:51 IMPRESSION: 1. No evidence of acute intracranial hemorrhage or edematous territorial infarction. 2. Moderate underlying microangiopathy and generalized cerebral volume loss. 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 3. No evidence of acute fracture or traumatic subluxation of the cervical spine. Moderate multilevel degenerative spondyloarthropathy of the cervical spine. 4. There is a 1.5 cm hypoattenuating lesion in the posterior aspect of the left thyroid lobe. Recommend further characterization with thyroid ultrasound. Electronically signed by: Solo Canas DO 06/13/2024 08:02 PM EST RP Abdomen/Pelvis CT 06/13/24 19:44 IMPRESSION: 1. Significant urinary bladder wall thickening with some hypodense areas along the posterior urinary bladder wall. Correlation with urinalysis needed. 2. Prominent bilateral renal collecting systems likely related to outlet obstruction. 3. Wedge-shaped defect lower pole right kidney not seen on prior. Renal infarct suspected. 4. Small hypodensity extending through the superior aspect of the spleen not seen previously. This could be secondary to a splenic infarct. 5. Stable left adrenal nodule. 6. Stable hepatic mass. 7. Rectal wall thickening with rectal tube in place. 8. Prominent fluid-filled small bowel loops may be seen with enteritis. Correlation needed. 9. Bibasilar lung opacities likely atelectasis associated with a minimal left pleural effusion. Fleischner guidelines were followed. Electronically signed by: Jose Elias Rodarte MD 06/14/2024 01:17 AM EST RP Chest X-Ray 06/13/24 19:50 IMPRESSION: 1. Bronchial wall thickening may be infectious and/or inflammatory in etiology. 2. Irregular enlarged heterogenous predominantly lucent lesion in the left proximal humerus. Electronically signed by: Alexa Aldana MD 06/13/2024 08:53 PM EST RP Assessment and Plan (1) Sepsis: Qualifiers: Sepsis type: sepsis due to unspecified organism Sepsis acute organ dysfunction status: without acute organ dysfunction Qualified Code(s): A41.9 - Sepsis, unspecified organism Status: Acute (2) UTI (urinary tract infection): Qualifiers: Urinary tract infection type: acute cystitis Hematuria presence: w ithout hematuria Qualified Code(s): N30.00 - Acute cystitis without hematuria Status: Acute Plan Torito Weber is 83 y/o man with PMHx significant for benign hemangioma of the liver admitted with: * Sepsis secondary to UTI. Admit to hospitalist service. Continue empiric IV antibiotic therapy with ceftriaxone. Continue IV fluids. Urine and blood culture obtained we will follow results. * Prominent bilateral renal collecting systems. Check bladder scan. * History of BPH. Continue finasteride and tamsulosin if BP allows. * s/p Fall. Fall precautions. Check urine drug screen and alcohol level. * Question spleen and right kidney infarct, asymptomatic. Hesitated about starting full anticoagulation due to recent hx of significant hematuria. DVT prophylaxis: heparin Code status: Full Patient will need hospitalization for at least 2 midnights for sepsis secondary to UTI treatment with IV antibiotics and IV fluids. Quality Stroke Does the patient have a stroke diagnosis?: No VTE Prior VTE?: No VTE Risk Level:: Medical - moderate - high VTE Device Contraindication: Treatment Not Indicated VTE Drug Contraindication: N/A - Med Ordered
[2024-06-14 02:28] LABS: Amphetamine Screen Urine Not Detected (Not Detect); Barbiturates, Urine Not Detected (Not Detect); Benzodiazepines Screen Urine Not Detected (Not Detect); Buprenorphine Scr Not Detected (Not Detect); Cannabinoid Screen Urine Not Detected (Not Detect); Cocaine Screen Urine Not Detected (Not Detect); Fentanyl, urine Not Detected (Not Detect); Methadone Screen, Urine Not Detected (Not Detect); Opiate Screen Urine Not Detected (Not Detect); Oxycodone Screen Urine Not Detected (Not Detect); Phencyclidine Screen Urine Not Detected (Not Detect)
[2024-06-14] MEDS: Lactated Ringers 1,000 ML 100 ML IVCONT (02:31)
[2024-06-14 02:40] LABS: Ethanol < 10 mg/dL
--- NOTE | 2024-06-14 03:58 | PC.NURSE ---
MD aware of bp no new orders at this time.
[2024-06-14 07:30] LABS: MANUAL DIFF FLAG NO
[2024-06-14] MEDS: vancomycin HCL 1,500 MG in 0.9 % Sodium Chloride 500 ML 333.33 MG IV (07:43)
--- NOTE | 2024-06-14 07:54 | PHA.PROG ---
Admission Date/Time: June 14, 2024 01:52 Indication: BACTEREMIA Weight in k.2 kg Adjusted body weight in Kg: [place] body weight in Kg: Obesity Dosing Indication % IBW: Serum Creatinine - Last 168 Hours 06/13/24 18:43 Creatinine 1.12 Estimated CrCl and GFR - Last 168 Hours 06/13/24 18:43 Estim Creat Clear Calc 46.9 Estimated GFR > 60 Vancomycin Loading Dose: 1500 Current Vancomycin Dosing Regimen: 1250 MG Q 24 HOURS Vancomycin Monitoring using AUC goal of 400 - 600 range with trough as surrogate marker: Date and Time for next Vancomycin Level to be drawn: 06/16/24 0500 Pharmacist Comments on Vancomycin Plan: WILL CHECK A LEVEL AFTER 2 DOSES Vancomycin dosing will take advantage of [employer] as a clinical decision support tool that uses Bayesian modeling to calculate individual patient's pharmacokinetic parameters and forecast the patient's drug concentration time course with the target goal AUC 24 range of 400 - 600 mg/L/hr.
[2024-06-14 07:59] LABS: Basophils Absolute Auto 0.1 X10*3/uL (0.0-0.2); Basophils Percent Auto 0.3 % (0-2); Eosinophils Absolute Auto 0.3 X10*3/uL (0.0-0.4); Eosinophils Percent Auto 1.9 % (0-4); Hematocrit 29.8 % (42.0-52.0); Hemoglobin 10.6 g/dl (14.0-18.0); Imm Gran Abs Auto 0.15 X10*3/uL (0.00-0.03); Imm Gran Pct Auto 0.8 % (0.0-0.4); Lymphocytes Absolute Auto 0.9 X10*3/uL (1.2-4.9); Lymphocytes Percent Auto 4.8 % (20-40); Mean Corpuscular HGB Conc 35.6 g/dl (31.0-36.0); Mean Corpuscular Hemoglobin 31.6 pg (27.0-33.0); Monocytes Absolute Auto 1.3 X10*3/uL (0.1-1.2); Monocytes Percent Auto 7.5 % (2-11); Neutrophils Percent Auto 84.7 % (45-73); Red Blood Count 3.35 X10*6/uL (4.60-5.80); Red Cell Distribution Width 13.4 % (11.0-16.0)
[2024-06-14 08:08] LABS: White Blood Count 17.7 X10*3/uL (4.8-10.8)
[2024-06-14 08:13] LABS: Mean Platelet Volume 9.3 fL (9.4-12.4); Platelet Count 89 X10*3/uL (160-400)
--- NOTE | 2024-06-14 08:20 | PHA.MEDREC ---
Pharmacy Consult ? Medication Reconciliation Pharmacy has completed the medication reconciliation.
[2024-06-14] MEDS: Heparin Sodium,Porcine 5,000 UNIT/ML VIAL 5000 UNIT SUBCUT (08:28)
[2024-06-14 08:31] LABS: Anion Gap 15 (12-20); Blood Urea Nitrogen 26 mg/dL (9-16); Calcium 8.3 mg/dL (8.4-10.2); Carbon Dioxide 18 mmol/L (22-29); Chloride 110 mmol/L (96-108); Creatinine Clr Calc Pharmacy 61.1; Estimated Glomerular Filt Rate > 60; Glucose Random 128 mg/dL (60-115); Potassium 3.6 mmol/L (3.3-5.1); Sodium 139 mmol/L (135-145); TSH reflex Free T4 0.63 uIU/mL (0.32-4.0)
--- NOTE | 2024-06-14 08:58 | P.PNIM_ITS ---
Subjective Subjective Date of Service: 06/14/24 Interval History: weakness Physical Exam 2 Vital Signs: Vital Signs: Last Vital Signs Temp 98.7 F 06/14/24 07:44 Pulse 65 06/14/24 07:44 Resp 17 06/14/24 07:44 BP 111/55 L 06/14/24 07:44 Pulse Ox 94 06/14/24 07:44 O2 Del Method Room Air 06/14/24 07:44 BMI result Body Mass Index 21.5 General: AO X 3, no acute distress Resp: CTA bilateral, no accessory muscles used CVS: S1,S2,RRR GI: soft, non tender, non distended Neuro: motor grossly intact, alert Psych: appropriate affect, appropriate insight Objective Data Active Medications Acetaminophen (Acetaminophen 325 Mg Tablet) 975 mg PO Q6H PRN PRN Reason: Pain, Mild (Pain Scale 1-3), fever or headache Ceftriaxone Sodium (Ceftriaxone Sodium 1 Gm Vial) 1 gm IVPUSH Q24H [facility] Heparin Sodium (Porcine) (Heparin Sodium,Porcine 5,000 Unit/Ml Vial) 5,000 unit SUBCUT Q12H [facility] Last Admin: 06/14/24 08:28 Dose: 5,000 unit Documented By: YULISSA Lactated Ringer's (Lr) 1,000 mls @ 100 mls/hr IVCONT .Q10H [facility] Stop: 06/14/24 11:59 Last Admin: 06/14/24 02:31 Dose: 100 mls/hr Documented By: DEMAR Vancomycin HCl 1,500 mg/ (Sodium Chloride) 500 mls @ 333.333 mls/hr IV ONCE ONE Stop: 06/14/24 08:59 Last Admin: 06/14/24 07:43 Dose: 333.33 mls/hr Documented By: YULISSA Vancomycin HCl 1,250 mg/ (Sodium Chloride) 250 mls @ 166.667 mls/hr IV Q24H [facility] Pharmacy Consult (Consult Rx Vancomycin Dosing) 1 each MISCELLANE DAILY PRN PRN Reason: Consult order Sodium Chloride (0.9 % Sodium Chloride Flush 3 Ml Syringe) 3 ml IVFLUSH QSHIFT [facility] Last Admin: 06/14/24 08:22 Dose: Not Given Documented By: YULISSA Non-Admin Reason: IV Running Labs 06/14/24 07:13 06/14/24 06:46 Labs: Laboratory Results - last 24 hr 06/13/24 06/13/24 06/13/24 18:43 19:42 20:07 MCV 89.6 MCH 31.4 MCHC 35.1 RDW 13.2 Plt Count 116 L D MPV 8.7 L Immature Gran % (Auto) Cancelled Neut % (Auto) Cancelled Lymph % (Auto) Cancelled [place] % (Auto) Cancelled Eos % (Auto) Cancelled Baso % (Auto) Cancelled Lymph # (Auto) Cancelled [place] # (Auto) Cancelled Eos # (Auto) Cancelled Baso # (Auto) Cancelled Abs Immat Gran (auto) Cancelled Absolute Neuts (auto) Cancelled Absolute Nucleated RBC 0.000 Nucleated RBC % (auto) 0.0 Neutrophils % (Manual) 69 Band Neutrophils % 17 H Lymphocytes % (Manual) 4 L Monocytes % (Manual) 4 Metamyelocytes % 6 Abs Neuts (Manual) 15.8 H Lymphocytes # (Manual) 0.7 L Monocytes # (Manual) 0.7 Metamyelocytes # 1.1 Toxic Granulation PRESENT Dohle Bodies PRESENT Platelet Estimate NORMAL Plt Morphology Comment NORMAL RBC Morphology NORMAL Anion Gap 13 Estim Creat Clear Calc 46.9 Estimated GFR > 60 Random Glucose 147 H Lactic Acid 3.4 H* Lactic Acid F/U @ 2Hr Calcium 9.2 Total Bilirubin 0.6 AST 59 H ALT 35 Alkaline Phosphatase 90 Total Creatine Kinase 227 H Total Protein 6.7 Albumin 3.5 Lipase 11 TSH Urine Color Dark Yellow Urine Appearance Cloudy Urine pH 5.5 Ur Specific [place] 1.025 Urine Protein 100 (2+) H Urine Glucose (UA) Negative Urine Ketones 15 Urine Blood Moderate (2+) H Urine Nitrite Negative Ur Leukocyte Esterase Moderate (2+) H Urine RBC 6-10 H Urine WBC >50 H Ur Squamous Epith Cells 3-5 Urine Bacteria Trace Hyaline Casts 3-5 Urine Opiates Screen Not Detected Ur Buprenorphine Scrn Not Detected Ur Oxycodone Screen Not Detected Urine Methadone Screen Not Detected Urine Fentanyl Screen Not Detected Ur Barbiturates Screen Not Detected Ur Phencyclidine Scrn Not Detected Ur Amphetamines Screen Not Detected U Benzodiazepines Scrn Not Detected Urine Cocaine Screen Not Detected U Marijuana (THC) Screen Not Detected Ethyl Alcohol < 10 Influenza Type A (PCR) NEGATIVE Influenza Type B (PCR) NEGATIVE RSV RNA Qual (PCR) NEGATIVE SARS-CoV-2 RNA (RT-PCR) NEGATIVE 06/13/24 06/14/24 06/14/24 22:59 06:46 07:13 MCV 89.0 MCH 31.6 MCHC 35.6 RDW 13.4 Plt Count 89 L MPV 9.3 L Immature Gran % (Auto) 0.8 H Neut % (Auto) 84.7 H Lymph % (Auto) 4.8 L [place] % (Auto) 7.5 Eos % (Auto) 1.9 Baso % (Auto) 0.3 Lymph # (Auto) 0.9 L [place] # (Auto) 1.3 H Eos # (Auto) 0.3 Baso # (Auto) 0.1 Abs Immat Gran (auto) 0.15 H Absolute Neuts (auto) 15.0 H Absolute Nucleated RBC 0.000 Nucleated RBC % (auto) 0.0 Neutrophils % (Manual) Band Neutrophils % Lymphocytes % (Manual) Monocytes % (Manual) Metamyelocytes % Abs Neuts (Manual) Lymphocytes # (Manual) Monocytes # (Manual) Metamyelocytes # Toxic Granulation Dohle Bodies Platelet Estimate Plt Morphology Comment RBC Morphology Anion Gap 15 Estim Creat Clear Calc 61.1 Estimated GFR > 60 Random Glucose 128 H Lactic Acid Lactic Acid F/U @ 2Hr 1.0 Calcium 8.3 L D Total Bilirubin AST ALT Alkaline Phosphatase Total Creatine Kinase 333 H Total Protein Albumin Lipase TSH 0.63 Urine Color Urine Appearance Urine pH Ur Specific [place] Urine Protein Urine Glucose (UA) Urine Ketones Urine Blood Urine Nitrite Ur Leukocyte Esterase Urine RBC Urine WBC Ur Squamous Epith Cells Urine Bacteria Hyaline Casts Urine Opiates Screen Ur Buprenorphine Scrn Ur Oxycodone Screen Urine Methadone Screen Urine Fentanyl Screen Ur Barbiturates Screen Ur Phencyclidine Scrn Ur Amphetamines Screen U Benzodiazepines Scrn Urine Cocaine Screen U Marijuana (THC) Screen Ethyl Alcohol Influenza Type A (PCR) Influenza Type B (PCR) RSV RNA Qual (PCR) SARS-CoV-2 RNA (RT-PCR) Microbiology Microbiology Results: Microbiology 06/13/24 20:07 Blood Culture - Preliminary Blood - Venous Prelim: GPC Gram Stain only 06/13/24 20:07 Blood Culture - Preliminary Blood - Venous Prelim: GPC Gram Stain only Assessment and Plan (1) Sepsis: Status: Acute Plan 83M PMH benign hemangioma of liver, BPH with chronic Mendez presented with fall found to have sepsis Sepsis due to Gram-positive bacteremia Source unclear at this time Added IV vancomycin, follow up cultures, echo, ID BPH with chronic Mendez and possible UTI Continue ceftriaxone, follow-up cultures Continue Flomax and finasteride Lesion and proximal humerus Possibly related to bacteremia Check SPEP UPEP to rule out myeloma Age indeterminate splenic and right renal infarct ? Related to bacteremia DVT prophylaxis with Lovenox Full code reason for continued hospitalization: Still bacteremic Quality Stroke Does the patient have a stroke diagnosis?: No VTE Prior VTE?: No VTE Risk Level:: Medical - moderate - high VTE Device Contraindication: Treatment Not Indicated VTE Drug Contraindication: N/A - Med Ordered
[2024-06-14] MEDS: 0.9 % Sodium Chloride Flush 3 ML SYRINGE IVFLUSH ×2 (15:03→20:24)
[2024-06-14] MEDS: Tamsulosin HCL 0.4 MG CAPSULE PO (20:17)
[2024-06-14] MEDS: cefTRIAXone sodium 1 GM VIAL IVPUSH (20:17)
--- NOTE | 2024-06-14 23:51 | W.PM.IDCN ---
History of Present Illness Data of Consult Service Date: 06/14/24 Requesting physician: Rik Madrigal Primary Care Provider: Unknown Physician HPI Reason for consult: fever of unknown origin,bactermi He presents with one day weakness, He couldnt get up easily and had weakness left arm and wrist and persists today He reports some fever He said he had distant h/o body rash and arthralgias in his 50s and was told he had gluten allergy He has no pets or travel He was so weak day of admission his clothes hamper pulled him down the stairs and he fell but no fracture reported. He has no TKR or THR or ports. 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 Patient Tobacco Use Status: Former Tobacco user Tobacco use type: Cigarette Years Smoked: 5 service: No Current occupational status: retired Meds Allergies Allergy/AdvReac Type Severity Reaction Status Date / Time bee pollen [bee stings] Allergy Swelling Verified 06/13/24 17:52 gluten Allergy Rash Verified 06/13/24 17:52 Penicillins Allergy Anaphylaxis Verified 06/13/24 17:52 Active Medications: Current Medications Acetaminophen (Acetaminophen 325 Mg Tablet) 975 mg PO Q6H PRN PRN Reason: Pain, Mild (Pain Scale 1-3), fever or headache Ceftriaxone Sodium (Ceftriaxone Sodium 1 Gm Vial) 1 gm IVPUSH Q24H [facility] Last Admin: 06/14/24 20:17 Dose: 1 gm Enoxaparin Sodium (Enoxaparin Sodium 40 Mg/0.4 Ml Syringe) 40 mg SUBCUT Q24H [facility] Finasteride (Finasteride 5 Mg Tablet) 5 mg PO DAILY [facility] Vancomycin HCl 1,250 mg/ (Sodium Chloride) 250 mls @ 166.667 mls/hr IV Q24H [facility] Pharmacy Consult (Consult Rx Vancomycin Dosing) 1 each MISCELLANE DAILY PRN PRN Reason: Consult order Sodium Chloride (0.9 % Sodium Chloride Flush 3 Ml Syringe) 3 ml IVFLUSH QSHIFT [facility] Last Admin: 06/14/24 20:24 Dose: 3 ml Tamsulosin HCl (Tamsulosin Hcl 0.4 Mg Capsule) 0.4 mg PO BEDTIME [facility] Last Admin: 06/14/24 20:17 Dose: 0.4 mg Home Medications ?Medication ?Instructions ?Recorded ?Confirmed ?Last Taken ?Type Multi-Vitamin & Mineral Complex 16 g PO DAILY 06/02/24 06/14/24 06/01/24 History Powder Osteo Fx 12.7 g PO DAILY 06/02/24 06/14/24 06/01/24 History Physical Exam Vital Signs: Vital Signs: Last Vital Signs Temp 98.4 F 06/14/24 23:30 Pulse 65 06/14/24 23:30 Resp 16 06/14/24 23:30 BP 117/60 06/14/24 23:30 Pulse Ox 94 06/14/24 23:30 O2 Del Method Room Air 06/14/24 23:30 BMI result Body Mass Index 21.5 Const: General: cooperative HEENT: Head: Yes normal to inspection Face and sinus: Yes normal facial exam Mouth: Normal oral and palatal mucosa present Teeth and gingiva: dentition normal Eyes: General: appearance normal, both eyes and all related structures Pupils: Equal, round and reactive pupils present Resp: Effort & Inspection: normal respiratory effort Cardio: Rate: regular rate Rhythm: regular rhythm GI: Palpation (GI): Soft to palpation and nontender : General: Yes no CVA tenderness Back/Spine/Pelvis: Back: no CVA tenderness Skin: Other: left arm hangs when moves and wrist painful General skin exam: no rashes or lesions noted Neuro: General: moves all extremities Cranial nerves: Yes Equal, round and reactive pupils present Extrem: General: Yes normal to inspection Psych: Appearance: grossly normal Results Labs 06/14/24 07:13 06/14/24 06:46 Labs: Short CBC 06/14/24 Range/Units 07:13 WBC 17.7 H (4.8-10.8) X10*3/uL Hgb 10.6 L (14.0-18.0) g/dl Hct 29.8 L (42.0-52.0) % Plt Count 89 L (160-400) X10*3/uL BMP 06/14/24 06:46 Sodium 139 Potassium 3.6 D Chloride 110 H Carbon Dioxide 18 L BUN 26 H Creatinine 0.86 Calcium 8.3 L D Cardiac Enzymes 06/14/24 Range/Units 06:46 Total Creatine Kinase 333 H (38-174) U/L Microbiology Microbiology Results: Microbiology 06/13/24 20:01 Urine clean catch - Clean Catch Midstream Urine Culture - Preliminary Staphylococcus species 06/13/24 20:07 Blood - Venous Blood Culture - Preliminary Prelim: GPC Gram Stain only 06/13/24 20:07 Blood - Venous Blood Culture - Preliminary Prelim: GPC Gram Stain only Assessment and Plan (1) UTI (urinary tract infection): Start date: 06/13/24 Qualifiers: Urinary tract infection type: acute cystitis Hematuria presence: without hematuria Qualified Code(s): N30.00 - Acute cystitis without hematuria Status: Acute Possible right renal infarct?UTI?obstruction in bladder or prostatitis. Weakness left arm ?etilogys ?arthralgias. All PCN Would continue Vancomycin for possible MRSA as well Switch Ceftriaxone to Kefzol and stop when blood cultures clear, Check TTE if not done. If true obstruction Urologiss; (2) Enlarged prostate: Status: Acute (3) Sepsis: Qualifiers: Sepsis acute organ dysfunction status: without acute organ dysfunction Sepsis type: sepsis due to unspecified organism Qualified Code(s): A41.9 - Sepsis, unspecified organism Status: Acute
[2024-06-15] VITALS (7 sets, daily range): BP systolic 100–122; BP diastolic 53–60; PULSE 58–71; RESP 16–20; TEMP 36.4–37.2; O2SAT 94–97
[2024-06-15] MEDS: vancomycin HCL 1,250 MG in 0.9 % Sodium Chloride 250 ML 166.67 MG IV (06:21)
[2024-06-15 07:14] LABS: Hematocrit 31.2 % (42.0-52.0); Hemoglobin 10.9 g/dl (14.0-18.0); Mean Corpuscular HGB Conc 34.9 g/dl (31.0-36.0); Mean Corpuscular Hemoglobin 31.1 pg (27.0-33.0); Mean Corpuscular Volume 89.1 fL (80.0-98.0); Mean Platelet Volume 10.2 fL (9.4-12.4); Red Cell Distribution Width 13.8 % (11.0-16.0); White Blood Count 18.9 X10*3/uL (4.8-10.8)
[2024-06-15 07:16] LABS: Platelet Count 95 X10*3/uL (160-400)
[2024-06-15 07:22] LABS: Anion Gap 12 (12-20); Blood Urea Nitrogen 30 mg/dL (9-16); Calcium 8.4 mg/dL (8.4-10.2); Carbon Dioxide 22 mmol/L (22-29); Chloride 107 mmol/L (96-108); Creatinine Clr Calc Pharmacy 65.7; Estimated Glomerular Filt Rate > 60; Glucose Random 113 mg/dL (60-115); Potassium 3.7 mmol/L (3.3-5.1); Sodium 137 mmol/L (135-145)
[2024-06-15] MEDS: Finasteride 5 MG TABLET PO (08:29)
[2024-06-15] MEDS: Enoxaparin Sodium 40 MG/0.4 ML SYRINGE SUBCUT (08:30)
[2024-06-15] MEDS: 0.9 % Sodium Chloride Flush 3 ML SYRINGE IVFLUSH ×3 (08:31→20:30)
--- NOTE | 2024-06-15 08:31 | HO.PM.IMPN ---
Subjective Subjective Date of Service: 06/15/24 Interval History: weakness Physical Exam Vital Signs: Vital Signs: Last Vital Signs Temp 98.5 F 06/15/24 07:44 Pulse 63 06/15/24 07:44 Resp 18 06/15/24 07:44 BP 111/56 L 06/15/24 07:44 Pulse Ox 96 06/15/24 07:44 O2 Del Method Room Air 06/15/24 07:44 BMI result Body Mass Index 21.5 Const: General: cooperative HEENT: Head: Yes normal to inspection Face and sinus: Yes normal facial exam Mouth: Normal oral and palatal mucosa present Teeth and gingiva: dentition normal Eyes: General: appearance normal, both eyes and all related structures Pupils: Equal, round and reactive pupils present Resp: Effort & Inspection: normal respiratory effort Cardio: Rate: regular rate Rhythm: regular rhythm GI: Palpation (GI): Soft to palpation and nontender : General: Yes no CVA tenderness Back/Spine/Pelvis: Back: no CVA tenderness Skin: Other: left arm hangs when moves and wrist painful General skin exam: no rashes or lesions noted Neuro: General: moves all extremities Cranial nerves: Yes Equal, round and reactive pupils present Extrem: General: Yes normal to inspection Psych: Appearance: grossly normal Objective Data Active Medications Acetaminophen (Acetaminophen 325 Mg Tablet) 975 mg PO Q6H PRN PRN Reason: Pain, Mild (Pain Scale 1-3), fever or headache Cefazolin Sodium (Cefazolin Sodium 1 Gm Vial) 2 gm IVPUSH Q8H [facility] Enoxaparin Sodium (Enoxaparin Sodium 40 Mg/0.4 Ml Syringe) 40 mg SUBCUT Q24H [facility] Last Admin: 06/15/24 08:30 Dose: 40 mg Documented By: YULISSA Finasteride (Finasteride 5 Mg Tablet) 5 mg PO DAILY [facility] Last Admin: 06/15/24 08:29 Dose: 5 mg Documented By: YULISSA Vancomycin HCl 1,250 mg/ (Sodium Chloride) 250 mls @ 166.667 mls/hr IV Q24H [facility] Last Infusion: 06/15/24 08:09 Dose: 166.67 mls/hr Documented By: YULISSA Pharmacy Consult (Consult Rx Vancomycin Dosing) 1 each MISCELLANE DAILY PRN PRN Reason: Consult order Sodium Chloride (0.9 % Sodium Chloride Flush 3 Ml Syringe) 3 ml IVFLUSH QSHIFT [facility] Last Admin: 06/15/24 08:31 Dose: 3 ml Documented By: YULISSA Tamsulosin HCl (Tamsulosin Hcl 0.4 Mg Capsule) 0.4 mg PO BEDTIME [facility] Last Admin: 06/14/24 20:17 Dose: 0.4 mg Documented By: ALEXANDRA Labs 06/15/24 05:40 06/15/24 05:40 Labs: Laboratory Results - last 24 hr 06/14/24 06/15/24 06:46 05:40 MCV 89.1 MCH 31.1 MCHC 34.9 RDW 13.8 Plt Count 95 L MPV 10.2 Absolute Nucleated RBC 0.000 Nucleated RBC % (auto) 0.0 Anion Gap 15 12 Estim Creat Clear Calc 61.1 65.7 Estimated GFR > 60 > 60 Random Glucose 128 H 113 Calcium 8.3 L D 8.4 Total Creatine Kinase 333 H TSH 0.63 Microbiology Microbiology Results: Microbiology 06/13/24 20:01 Urine Culture - Final Urine clean catch - Clean Catch Midstream Staphylococcus aureus 06/13/24 20:07 Blood Culture - Preliminary Blood - Venous Prelim: GPC Gram Stain only 06/13/24 20:07 Blood Culture - Preliminary Blood - Venous Prelim: GPC Gram Stain only Assessment and Plan (1) Sepsis: Status: Acute Plan 83M PMH benign hemangioma of liver, BPH with chronic Mendez presented with fall found to have sepsis Sepsis due to Gram-positive bacteremia, staph uti iv vanc, ancef until cultures negative, follow up cultures, echo, ID appreciated BPH with chronic Mendez and UTI Continue abx as above, follow-up cultures Continue Flomax and finasteride Lesion and proximal humerus Possibly related to bacteremia Check SPEP UPEP to rule out myeloma Age indeterminate splenic and right renal infarct ? Related to bacteremia DVT prophylaxis with Lovenox Full code reason for continued hospitalization: Still bacteremic Quality Stroke Does the patient have a stroke diagnosis?: No VTE Prior VTE?: No VTE Risk Level:: Medical - moderate - high VTE Device Contraindication: Treatment Not Indicated VTE Drug Contraindication: N/A - Med Ordered
[2024-06-15] MEDS: ceFAZolin Sodium 1 GM VIAL 2 GM IVPUSH ×3 (08:36→22:42)
--- NOTE | 2024-06-15 10:16 | MHC.CM.PN ---
PT LIVES W/ AFRIEND IS INDEPEDETN AND DOES NOT EXPECT TO NEED SERVIES WHEN DCD DC PLAN HOME NO SERVICES
[2024-06-15] MEDS: Tamsulosin HCL 0.4 MG CAPSULE PO (20:30)
[2024-06-16] VITALS (7 sets, daily range): BP systolic 114–136; BP diastolic 54–63; PULSE 67–79; RESP 16–20; TEMP 36.3–37; O2SAT 94–96
[2024-06-16 05:29] LABS: PLT CLUMP 1
[2024-06-16 05:31] LABS: Hematocrit 31.7 % (42.0-52.0); Hemoglobin 10.9 g/dl (14.0-18.0); Mean Corpuscular HGB Conc 34.4 g/dl (31.0-36.0); Mean Corpuscular Hemoglobin 30.5 pg (27.0-33.0); Mean Corpuscular Volume 88.8 fL (80.0-98.0); Mean Platelet Volume 10.9 fL (9.4-12.4); Red Blood Count 3.57 X10*6/uL (4.60-5.80); Red Cell Distribution Width 13.7 % (11.0-16.0)
[2024-06-16 05:42] LABS: Platelet Count 94 X10*3/uL (160-400); White Blood Count 15.3 X10*3/uL (4.8-10.8)
[2024-06-16 05:46] LABS: Anion Gap 10 (12-20); Blood Urea Nitrogen 27 mg/dL (9-16); Calcium 8.2 mg/dL (8.4-10.2); Carbon Dioxide 21 mmol/L (22-29); Chloride 109 mmol/L (96-108); Creatinine Clr Calc Pharmacy 60.4; Estimated Glomerular Filt Rate > 60; Glucose Random 108 mg/dL (60-115); Potassium 3.4 mmol/L (3.3-5.1); Sodium 137 mmol/L (135-145)
[2024-06-16 05:52] LABS: Vancomycin Random 8.2 mcg/mL (15-20)
[2024-06-16] MEDS: ceFAZolin Sodium 1 GM VIAL 2 GM IVPUSH ×3 (06:05→23:31)
--- NOTE | 2024-06-16 06:08 | HE.PHANOTE ---
PATRICIA Changing dose to 1500mg Q24H per subtherapeutic trough and stable renal function. New predicted trough: 16, AUC: 567. Next trough to be pulled 06/17 @0600 to possibly adjust back to 1250mg Q24H after patient is within therapeutic range.
--- NOTE | 2024-06-16 07:00 | CA_ITS ---
Transthoracic Echocardiogram Patient (Last, First, Middle): Torito Weebr, Gender: Male Date of : 1940 Age: 83 Procedure Date: 06/16/2024 Procedure Type: Transthoracic Echocardiogram Location: S3E Height: 162.56 cm Weight: 63.96 kg BSA: 1.69 m2 Heart Rate: 67 bpm BP: 114 / 57 mmHg Line Technician: SB Referring MD: Rik Madrigal MD Symptoms: Bacteremia Study Quality: Fair parasternal window ECG Rhythm: Sinus Conclusions: - 1. Normal LV ejection fraction 55-60% with impaired relaxation filling pattern 2. Moderately dilated left atrium 3. Calcific aortic valve changes noted with mild aortic regurgitation with a mobile mass which could represent a vegetation, small in size 4. Normal RV systolic pressure 5. No gross pericardial effusion Findings Procedure Information The quality of the study was technically difficult. The study quality is limited by lung artifact. Left Ventricle Normal left ventricular size, thickness, and systolic function. The visually estimated ejection fraction is between 55-60%. Spectral Doppler is indicative of an impaired relaxation filling pattern. Right Ventricle Normal right ventricular cavity size and systolic function. Atria The left atrium is moderately dilated. Interatrial shunt cannot be excluded. The right atrium is normal in size. Aortic Valve There is moderate calcification of the aortic valve. There is moderate thickening of the aortic valve. The mass is consistent with possible vegetation. The mass could represent mobile calcified mass. Mitral Valve There is mild anterior and posterior mitral leaflet thickening. There is mild mitral annular calcification. There is trace mitral valve regurgitation. There is no mitral valve stenosis. Tricuspid Valve Likely normal tricuspid valve structure and function. There is mild tricuspid valve regurgitation. The right ventricular systolic pressure is normal. The right ventricular systolic pressure is 26 mmHg. Normal right atrial pressure. There is no evidence of pulmonary hypertension. Great Vessels The aorta was not well visualized. The pulmonary artery was not well visualized. There is no dilatation of the ascending aorta. Venous The inferior vena cava is normal in size and collapses greater than 50% with inspiration. Pericardium/Pleural There is no evidence of pericardial effusion. Prior Study Comparison No prior study available for comparison. Findings d/w Dr. Madrigal Recommendations, Care & Conclusions Consider a SUKHI if clinically appropriate. Measurements 2D Linear Measurements IVSd: 1.35 0.6-0.9/0.6-1.0 cm LVIDd: 5.20 3.9-5.3/4.2-5.9 cm LVIDd Index: 3.08 2.4-3.2/2.2-3.1 cm/m2 LVIDs: 3.68 2.0-3.6 cm LVPWd: 0.67 0.7-1.1 cm LA Diam: 4.70 2.7-3.8/3.0-4.0 cm LAIDs Index: 2.78 1.5-2.3 cm/m2 LV Mass: 244.70 67-162/88-224 g LV Mass Index: 144.79 43-95/49-115 g/m2 LVOT Diam: 2.40 3.0+(-)1.3 cm 2D Systolic Function EF 4C: 57.50 >55% EF 2C: 66.50 >55% EF BiP: 59.80 >55% Mitral Valve MV Pk E: 1.03 MV PK A: 0.65 MV Decel Time: 137.00 E/A: 1.60 E'Medial: 7.62 E/E' Med: 13.50 PHT: 40.00 MVA PHT: 5.50 Decel [place]: 7.49 Aortic Valve AoV Pk Gerald: 2.22 AoV Mn Gerald: 1.54 AoV VTI: 0.40 AoV Pk Grad: 20.00 Aov Mn Grad: 11.00 DANNIELLE Cont.VTI: 2.22 AI Pk Gerald: 3.19 AI VTI: 1.28 AI [place]: 3.19 LVOT LVOT Pk Gerald: 0.97 LVOT Mn Gerald: 0.65 LVOT VTI: 0.20 LVOT Pk Grad: 4.00 LVOT Mn Grad: 2.00 LVOT Diam: 2.40 LVOT Area: 4.52 Diastolic Function MV Pk E: 1.03 MV Pk A: 0.65 E/A: 1.60 E'Medial: 7.62 E/E' Med: 13.50 Right Ventricle TAPSE (mm): 28.00 TVS' Gerald: 25.00 Tricuspid Valve TR Pk Gerald: 2.39 TR Pk Grad: 23.00 RA Press: 3.00 RVSP: 26.00 Great Vessels Aorta Sinus of Valsalva: 3.60 2.0-3.5 cm Pulmonary Veins Pulm Vein S/D 1.30 Updated in Other Vendor System with Status of Final Cristian Jessica MD electronically signed on 06/16/2024 9:34:01 AM with status of Final
--- NOTE | 2024-06-16 08:36 | HO.PM.IMPN ---
Subjective Subjective Date of Service: 06/16/24 Interval History: weakness Physical Exam Vital Signs: Vital Signs: Last Vital Signs Temp 98.2 F 06/16/24 07:56 Pulse 68 06/16/24 07:56 Resp 16 06/16/24 07:56 BP 115/54 L 06/16/24 07:56 Pulse Ox 95 06/16/24 07:56 O2 Del Method Room Air 06/16/24 07:56 BMI result Body Mass Index 21.5 Const: General: cooperative HEENT: Head: Yes normal to inspection Face and sinus: Yes normal facial exam Mouth: Normal oral and palatal mucosa present Teeth and gingiva: dentition normal Eyes: General: appearance normal, both eyes and all related structures Pupils: Equal, round and reactive pupils present Resp: Effort & Inspection: normal respiratory effort Cardio: Rate: regular rate Rhythm: regular rhythm GI: Palpation (GI): Soft to palpation and nontender : General: Yes no CVA tenderness Back/Spine/Pelvis: Back: no CVA tenderness Skin: Other: left arm hangs when moves and wrist painful General skin exam: no rashes or lesions noted Neuro: General: moves all extremities Cranial nerves: Yes Equal, round and reactive pupils present Extrem: General: Yes normal to inspection Psych: Appearance: grossly normal Objective Data Active Medications Acetaminophen (Acetaminophen 325 Mg Tablet) 975 mg PO Q6H PRN PRN Reason: Pain, Mild (Pain Scale 1-3), fever or headache Cefazolin Sodium (Cefazolin Sodium 1 Gm Vial) 2 gm IVPUSH Q8H [facility] Last Admin: 06/16/24 06:05 Dose: 2 gm Documented By: STEFANI Enoxaparin Sodium (Enoxaparin Sodium 40 Mg/0.4 Ml Syringe) 40 mg SUBCUT Q24H [facility] Last Admin: 06/15/24 08:30 Dose: 40 mg Documented By: YULISSA Finasteride (Finasteride 5 Mg Tablet) 5 mg PO DAILY [facility] Last Admin: 06/15/24 08:29 Dose: 5 mg Documented By: YULISSA Sodium Chloride (0.9 % Sodium Chloride Flush 3 Ml Syringe) 3 ml IVFLUSH QSHIFT [facility] Last Admin: 06/15/24 20:30 Dose: 3 ml Documented By: STEFANI Tamsulosin HCl (Tamsulosin Hcl 0.4 Mg Capsule) 0.4 mg PO BEDTIME [facility] Last Admin: 06/15/24 20:30 Dose: 0.4 mg Documented By: STEFANI Labs 06/16/24 04:50 06/16/24 04:50 Labs: Laboratory Results - last 24 hr 06/16/24 04:50 MCV 88.8 MCH 30.5 MCHC 34.4 RDW 13.7 Plt Count 94 L MPV 10.9 Absolute Nucleated RBC 0.000 Nucleated RBC % (auto) 0.0 Anion Gap 10 L Estim Creat Clear Calc 60.4 Estimated GFR > 60 Random Glucose 108 Calcium 8.2 L Random Vancomycin 8.2 L Microbiology Microbiology Results: Microbiology 06/13/24 20:07 Blood Culture - Preliminary Blood - Venous Staphylococcus aureus 06/13/24 20:07 Blood Culture - Preliminary Blood - Venous Staphylococcus aureus 06/13/24 20:01 Urine Culture - Final Urine clean catch - Clean Catch Midstream Staphylococcus aureus Assessment and Plan (1) Sepsis: Status: Acute Plan 83M PMH benign hemangioma of liver, BPH with chronic Mendez presented with fall found to have sepsis Sepsis due to Gram-positive bacteremia, MSSA uti will dc vanco, continue iv ancef, follow up cultures, echo, ID appreciated BPH with chronic Mendez and MSSA UTI Continue abx as above Continue Flomax and finasteride Lesion and proximal humerus Possibly related to bacteremia Check SPEP UPEP to rule out myeloma Age indeterminate splenic and right renal infarct ? Related to bacteremia DVT prophylaxis with Lovenox Full code reason for continued hospitalization: Still bacteremic Quality Stroke Does the patient have a stroke diagnosis?: No VTE Prior VTE?: No VTE Risk Level:: Medical - moderate - high VTE Device Contraindication: Treatment Not Indicated VTE Drug Contraindication: N/A - Med Ordered
[2024-06-16] MEDS: 0.9 % Sodium Chloride Flush 3 ML SYRINGE IVFLUSH ×3 (09:04→23:32)
[2024-06-16] MEDS: Enoxaparin Sodium 40 MG/0.4 ML SYRINGE SUBCUT (09:05)
[2024-06-16] MEDS: Finasteride 5 MG TABLET PO (09:05)
--- NOTE | 2024-06-16 11:05 | MHC.CM.PN ---
Per MD rounds patient will need IV ABX in a SNF @ discharge. A PICC will be inserted once the blood cultures are clear. Preferences of facilities have been obtained. Referrals have been sent. DP to SNF with IV ABX via BLS when cleared for discharge.
[2024-06-16] MEDS: Acetaminophen 325 MG TABLET 975 MG PO (15:51)
[2024-06-16] MEDS: Tamsulosin HCL 0.4 MG CAPSULE PO (20:05)
[2024-06-17] VITALS (7 sets, daily range): BP systolic 106–121; BP diastolic 51–80; PULSE 67–79; RESP 12–18; TEMP 36.7–37.3; O2SAT 96–97
[2024-06-17 08:13] LABS: Hematocrit 32.1 % (42.0-52.0); Hemoglobin 11.3 g/dl (14.0-18.0); Mean Corpuscular HGB Conc 35.2 g/dl (31.0-36.0); Mean Corpuscular Hemoglobin 31.2 pg (27.0-33.0); Mean Corpuscular Volume 88.7 fL (80.0-98.0); Mean Platelet Volume 10.4 fL (9.4-12.4); Red Blood Count 3.62 X10*6/uL (4.60-5.80); Red Cell Distribution Width 13.9 % (11.0-16.0); White Blood Count 17.9 X10*3/uL (4.8-10.8)
[2024-06-17 08:14] LABS: Platelet Count 95 X10*3/uL (160-400)
--- NOTE | 2024-06-17 08:17 | HO.PM.IMPN ---
Subjective Subjective Date of Service: 06/17/24 Interval History: weakness Physical Exam Vital Signs: Vital Signs: Last Vital Signs Temp 98.8 F 06/17/24 08:10 Pulse 67 06/17/24 08:10 Resp 18 06/17/24 08:10 BP 106/53 L 06/17/24 08:10 Pulse Ox 97 06/17/24 08:10 O2 Del Method Room Air 06/17/24 08:10 O2 Flow Rate 94 06/16/24 23:50 BMI result Body Mass Index 21.5 General: AO X 3, no acute distress Resp: CTA bilateral, no accessory muscles used CVS: S1,S2,RRR GI: soft, non tender, non distended Neuro: motor grossly intact, alert Psych: appropriate affect, appropriate insight Objective Data Active Medications Acetaminophen (Acetaminophen 325 Mg Tablet) 975 mg PO Q6H PRN PRN Reason: Pain, Mild (Pain Scale 1-3), fever or headache Last Admin: 06/16/24 15:51 Dose: 975 mg Documented By: LARRY Cefazolin Sodium (Cefazolin Sodium 1 Gm Vial) 2 gm IVPUSH Q8H [facility] Last Admin: 06/16/24 23:31 Dose: 2 gm Documented By: ALEXANDRA Enoxaparin Sodium (Enoxaparin Sodium 40 Mg/0.4 Ml Syringe) 40 mg SUBCUT Q24H [facility] Last Admin: 06/16/24 09:05 Dose: 40 mg Documented By: LARRY Finasteride (Finasteride 5 Mg Tablet) 5 mg PO DAILY [facility] Last Admin: 06/16/24 09:05 Dose: 5 mg Documented By: LARRY Sodium Chloride (0.9 % Sodium Chloride Flush 3 Ml Syringe) 3 ml IVFLUSH QSHIFT [facility] Last Admin: 06/16/24 23:32 Dose: 3 ml Documented By: ALEXANDRA Tamsulosin HCl (Tamsulosin Hcl 0.4 Mg Capsule) 0.4 mg PO BEDTIME [facility] Last Admin: 06/16/24 20:05 Dose: 0.4 mg Documented By: ALEXANDRA Labs 06/17/24 07:36 06/16/24 04:50 Labs: Laboratory Results - last 24 hr 06/14/24 06/17/24 08:34 07:36 MCV 88.7 MCH 31.2 MCHC 35.2 RDW 13.9 Plt Count 95 L MPV 10.4 Absolute Nucleated RBC 0.000 Nucleated RBC % (auto) 0.0 Urine Immunofixation Microbiology Microbiology Results: Microbiology 06/15/24 05:40 Blood Culture - Preliminary Blood - Venous Prelim: GPC Gram Stain only 06/15/24 05:40 Blood Culture - Preliminary Blood - Venous Prelim: GPC Gram Stain only 06/13/24 20:07 Blood Culture - Final Blood - Venous Staphylococcus aureus 06/13/24 20:07 Blood Culture - Final Blood - Venous Staphylococcus aureus Assessment and Plan (1) Sepsis: Status: Acute Plan 83M PMH benign hemangioma of liver, BPH with chronic Mendez presented with fall found to have sepsis 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 Related to endocarditis DVT prophylaxis with Lovenox Full code reason for continued hospitalization: Still bacteremic Quality Stroke Does the patient have a stroke diagnosis?: No VTE Prior VTE?: No VTE Risk Level:: Medical - moderate - high VTE Device Contraindication: Treatment Not Indicated VTE Drug Contraindication: N/A - Med Ordered
[2024-06-17 08:25] LABS: Anion Gap 13 (12-20); Blood Urea Nitrogen 32 mg/dL (9-16); Calcium 8.4 mg/dL (8.4-10.2); Carbon Dioxide 21 mmol/L (22-29); Chloride 108 mmol/L (96-108); Creatinine Clr Calc Pharmacy 59.7; Estimated Glomerular Filt Rate > 60; Glucose Random 107 mg/dL (60-115); Potassium 3.6 mmol/L (3.3-5.1); Sodium 138 mmol/L (135-145)
[2024-06-17] MEDS: Enoxaparin Sodium 40 MG/0.4 ML SYRINGE SUBCUT (09:20)
[2024-06-17] MEDS: ceFAZolin Sodium 1 GM VIAL 2 GM IVPUSH ×2 (09:21→16:38)
[2024-06-17] MEDS: Finasteride 5 MG TABLET PO (09:22)
[2024-06-17] MEDS: 0.9 % Sodium Chloride Flush 3 ML SYRINGE IVFLUSH ×2 (09:22→16:39)
--- NOTE | 2024-06-17 13:26 | MHC.CM.PN ---
PT eval recommends STR at discharge.
--- NOTE | 2024-06-17 14:34 | PM.CNOR ---
History of Present Illness HPI Consult date: 06/17/24 Chief complaint: Sepsis secondary to UTI Narrative: 83 yo male admitted to the medical service for MSSA bacteremia, source ? UTI. He fell a few days ago going down his stairs. Orthopedics was consulted due to left knee swelling, ? source of bacteremia. Patient denies left knee pain. States he has never had treatment in the left knee ie: asp or injections He states he has some diff bending. Review of Systems Review of Systems: Yes all other systems are reviewed and are negative PMF Past Medical History Medical History Gluten free diet Prostate mass Acute urinary retention Family History Family History Brother Prostate cancer Surgical History Surgical History H/O hernia repair Social History Social History Household Members: Other Housing: House Housing Other:: rent room in house Do you presently have visiting nurse or other home services: No Comment: high fall d/t CBI Patient Tobacco Use Status: Former Tobacco user Tobacco use type: Cigarette Years Smoked: 5 service: No Current occupational status: retired Meds Allergies Allergy/AdvReac Type Severity Reaction Status Date / Time bee pollen [bee stings] Allergy Swelling Verified 06/13/24 17:52 gluten Allergy Rash Verified 06/13/24 17:52 Penicillins Allergy Anaphylaxis Verified 06/13/24 17:52 Active Medications: Current Medications Acetaminophen (Acetaminophen 325 Mg Tablet) 975 mg PO Q6H PRN PRN Reason: Pain, Mild (Pain Scale 1-3), fever or headache Last Admin: 06/16/24 15:51 Dose: 975 mg Cefazolin Sodium (Cefazolin Sodium 1 Gm Vial) 2 gm IVPUSH Q8H [facility] Last Admin: 06/17/24 09:21 Dose: 2 gm Enoxaparin Sodium (Enoxaparin Sodium 40 Mg/0.4 Ml Syringe) 40 mg SUBCUT Q24H [facility] Last Admin: 06/17/24 09:20 Dose: 40 mg Finasteride (Finasteride 5 Mg Tablet) 5 mg PO DAILY [facility] Last Admin: 06/17/24 09:22 Dose: 5 mg Sodium Chloride (0.9 % Sodium Chloride Flush 3 Ml Syringe) 3 ml IVFLUSH QSHIFT [facility] Last Admin: 06/17/24 09:22 Dose: 3 ml Tamsulosin HCl (Tamsulosin Hcl 0.4 Mg Capsule) 0.4 mg PO BEDTIME [facility] Last Admin: 06/16/24 20:05 Dose: 0.4 mg Home Medications ?Medication ?Instructions ?Recorded ?Confirmed ?Last Taken ?Type Multi-Vitamin & Mineral Complex 16 g PO DAILY 06/02/24 06/14/24 06/01/24 History Powder Osteo Fx 12.7 g PO DAILY 06/02/24 06/14/24 06/01/24 History Physical Exam Vital Signs: Vital Signs: Last Vital Signs Temp 99.1 F 06/17/24 12:14 Pulse 75 06/17/24 13:28 Resp 18 06/17/24 12:14 BP 113/51 L 06/17/24 13:28 Pulse Ox 96 06/17/24 13:28 O2 Del Method Room Air 06/17/24 12:14 O2 Flow Rate 94 06/16/24 23:50 BMI result Body Mass Index 21.5 Const: General: cooperative, healthy appearing, comfortable and no acute distress Extrem: Other: Left knee normal to inspection Moderate joint effusion presents No tenerness to palption He can extend fully Flexion to 90, no pain NVI Results Labs 06/17/24 07:36 06/17/24 07:36 Labs: Abnormal lab results 06/17/24 Range/Units 07:36 WBC 17.9 H (4.8-10.8) X10*3/uL RBC 3.62 L (4.60-5.80) X10*6/uL Hgb 11.3 L (14.0-18.0) g/dl Hct 32.1 L (42.0-52.0) % Plt Count 95 L (160-400) X10*3/uL Carbon Dioxide 21 L (22-29) mmol/L BUN 32 H (9-16) mg/dL H & H 06/13/24 06/14/24 06/15/24 Range/Units 18:43 07:13 05:40 Hgb 12.1 L 10.6 L 10.9 L (14.0-18.0) g/dl Hct 34.5 L 29.8 L 31.2 L (42.0-52.0) % 06/16/24 06/17/24 Range/Units 04:50 07:36 Hgb 10.9 L 11.3 L (14.0-18.0) g/dl Hct 31.7 L 32.1 L (42.0-52.0) % All other labs normal. Assessment and Plan (1) Effusion, left knee: Status: Acute Plan Left knee does not appear to be septic given absence of pain, redness or warmth -rec Xray to further eval ?oa -rec aspiration to help with pain and potentially send for cx if fluid was questionable for infection -->patient declined at this time, wants to re-eval tomorrow He can WBAT, ROm to tolerance , Compression with prabhjot, NSAIDs prn Procedures Date of Service Date of Service: 06/17/24
[2024-06-17 16:04] LABS: PEU-Protein Creat Ratio Rand 0.894 (0.025-0.148); PEU-Rand. Prot/Creat Ratio 894 mg/g creat (25-148); PEU-Random Ur. Gamma Globulin 18 %; PEU-Random Urine A1 Globulin 16 %; PEU-Random Urine A2 Globulin 19 %; PEU-Random Urine Albumin 27 %; PEU-Random Urine Beta Globulin 20 %; PEU-Random Urine Creatinine 85 mg/dL (20-320); PEU-Random Urine Protein 76 mg/dL (5-25)
--- NOTE | 2024-06-17 16:50 | PC.NURSE ---
prabhjot wrap applied to left knee as ordered
[2024-06-17] MEDS: Tamsulosin HCL 0.4 MG CAPSULE PO (19:58)
[2024-06-17] MEDS: Celecoxib 100 MG CAPSULE PO (19:58)
[2024-06-18] VITALS (7 sets, daily range): BP systolic 108–136; BP diastolic 53–65; PULSE 58–81; RESP 12–18; TEMP 36.1–37; O2SAT 95–96
[2024-06-18] MEDS: 0.9 % Sodium Chloride Flush 3 ML SYRINGE IVFLUSH ×4 (07:45→22:45)
[2024-06-18] MEDS: Celecoxib 100 MG CAPSULE PO ×2 (07:45→22:40)
[2024-06-18] MEDS: Enoxaparin Sodium 40 MG/0.4 ML SYRINGE SUBCUT (07:45)
[2024-06-18] MEDS: Finasteride 5 MG TABLET PO (07:45)
[2024-06-18] MEDS: ceFAZolin Sodium 1 GM VIAL 2 GM IVPUSH ×4 (07:46→22:41)
--- NOTE | 2024-06-18 07:57 | P.PNOP_ITS ---
Subjective Subjective Date of Service: 06/18/24 Interval history: Patient laying in bed comfortably No overnight events Reports left knee does not have any pain Feels that it has improved since yesterday Physical Exam Vital Signs: Vital Signs: Last Vital Signs Temp 98.6 F 06/18/24 04:00 Pulse 67 06/18/24 04:00 Resp 14 06/18/24 04:00 BP 108/53 L 06/18/24 04:00 Pulse Ox 96 06/18/24 04:00 O2 Del Method Room Air 06/18/24 04:00 O2 Flow Rate 94 06/16/24 23:50 BMI result Body Mass Index 21.5 Const: General: cooperative, healthy appearing and no acute distress Resp: Effort & Inspection: normal respiratory effort and able to speak in co mplete sentences Skin: Lesions: no lesions Rashes: no rashes Extrem: Other: Left knee normal to inspection Mild resolving joint effusion No tenerness to palption He can extend fully Flexion to 90, no pain NVI Procedures Date of Service Date of Service: 06/18/24 Progress Note: A&P Assessment and plan (1) Effusion, left knee: Status: Acute Plan Continue YIMI wrap for compression Continue Celebrex Gentle ROM WBAT Would not recommend aspiration at this time Resolving effusion Time Spent With Patient Time: Total time managing care of this patient today ____ minutes. Quality Stroke Does the patient have a stroke diagnosis?: No VTE Prior VTE?: No VTE Risk Level:: Medical - moderate - high VTE Device Contraindication: Treatment Not Indicated VTE Drug Contraindication: N/A - Med Ordered
--- NOTE | 2024-06-18 11:02 | P.PNIM_ITS ---
Subjective Subjective Date of Service: 06/18/24 Interval History: seen and evaluated this morning feels little better in his knee blood cultures negative no other events Review of Systems Review of Systems: Yes all other systems are reviewed and are negative Physical Exam 2 Vital Signs: Vital Signs: Last Vital Signs Temp 97.0 F 06/18/24 07:59 Pulse 63 06/18/24 10:45 Resp 12 06/18/24 07:59 BP 136/65 06/18/24 10:45 Pulse Ox 95 06/18/24 10:45 O2 Del Method Room Air 06/18/24 07:59 O2 Flow Rate 94 06/16/24 23:50 BMI result Body Mass Index 21.5 Const: Other: Constitutional : Awake, interactive, not in distress Neck : Normal inspection, Supple Cardiovascular : RRR, no JVP, no lower extremity edema Respiratory : good bilateral air entry, no crackles, wheezes or rhonchi Gastrointestinal: soft, lax, Normal bowel sounds, Non tender Skin : Warm, Dry. left knee mildly swolley, less tenderness, no redness Neurological : Alert & oriented x3, No focal deficit Objective Data Active Medications Acetaminophen (Acetaminophen 325 Mg Tablet) 975 mg PO Q6H PRN PRN Reason: Pain, Mild (Pain Scale 1-3), fever or headache Last Admin: 06/16/24 15:51 Dose: 975 mg Documented By: LARRY Cefazolin Sodium (Cefazolin Sodium 1 Gm Vial) 2 gm IVPUSH Q8H [facility] Last Admin: 06/18/24 07:46 Dose: 2 gm Documented By: GEORGE Celecoxib (Celecoxib 100 Mg Capsule) 100 mg PO BID [facility] Last Admin: 06/18/24 07:45 Dose: 100 mg Documented By: GEORGE Docusate Sodium (Docusate Sodium 100 Mg Capsule) 100 mg PO BID [facility] Enoxaparin Sodium (Enoxaparin Sodium 40 Mg/0.4 Ml Syringe) 40 mg SUBCUT Q24H [facility] Last Admin: 06/18/24 07:45 Dose: 40 mg Documented By: GEORGE Finasteride (Finasteride 5 Mg Tablet) 5 mg PO DAILY [facility] Last Admin: 06/18/24 07:45 Dose: 5 mg Documented By: GEORGE Polyethylene Glycol (Polyethylene Glycol 3350 17 Gm Powd.Pack) 17 gm PO DAILY [facility] Sodium Chloride (0.9 % Sodium Chloride Flush 3 Ml Syringe) 3 ml IVFLUSH QSHIFT [facility] Last Admin: 06/18/24 07:45 Dose: 3 ml Documented By: GEORGE Tamsulosin HCl (Tamsulosin Hcl 0.4 Mg Capsule) 0.4 mg PO BEDTIME [facility] Last Admin: 06/17/24 19:58 Dose: 0.4 mg Documented By: ALEXANDRA Labs 06/17/24 07:36 06/17/24 07:36 Labs: Laboratory Results - last 24 hr 06/14/24 08:34 U [place] Prot/Creat Ratio 0.894 H Ur Creatinine mg/dL 85 U Total Protein mg/dL 76 H Protein/Creatinin Ratio 894 H Urine Albumin (%) 27 U Sxsfd-3-Fpxqrspa (%) 16 U Wquql-0-Ccpktjfr (%) 19 U Beta Globulin (%) 20 U Gamma Globulin (%) 18 U Abnormal Prot Band 1 TNP U Abnormal Prot Band 2 TNP U Abnormal Prot Band 3 TNP Urine PEP Interpret Microbiology Microbiology Results: Microbiology 06/17/24 07:42 Blood Culture - Preliminary Blood - Venous No growth after 24 hours. 06/17/24 07:36 Blood Culture - Preliminary Blood - Venous No growth after 24 hours. 06/15/24 05:40 Blood Culture - Final Blood - Venous Staphylococcus aureus 06/15/24 05:40 Blood Culture - Final Blood - Venous Staphylococcus aureus Assessment and Plan (1) Effusion, left knee: Status: Acute (2) UTI (urinary tract infection): Status: Acute (3) Sepsis: Status: Acute (4) Endocarditis due to methicillin susceptible Staphylococcus aureus (MSSA): Status: Acute Plan 83M PMH benign hemangioma of liver, BPH with chronic Mendez presented with fall found to have sepsis Sepsis due to MSSA endocarditis and UTI ancef 2gm q8, 6 weeks from negative culture Echo showing likely Aortic valce changes with movile mass still positive from 06/15/24, follow up repeat from 06/17/24 (-ve at 24 hours) no indication for surgery at this time ID following Plan for 4-6 weeks of IV antibiotics BPH with chronic Mendez and MSSA UTI Continue abx as above Continue Flomax and finasteride Lesion and proximal humerus Possibly related to endocarditis Check SPEP UPEP to rule out myeloma 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 needs PICC line. Quality Stroke Does the patient have a stroke diagnosis?: No VTE Prior VTE?: No VTE Risk Level:: Medical - moderate - high VTE Device Contraindication: Treatment Not Indicated VTE Drug Contraindication: N/A - Med Ordered
--- OUTSIDE RECORDS SUMMARY | 2024-06-18 11:27 | XMS_ITS | Data Portability ---
Author Organization [facility], [address] Address [address] [place] [address] Assessment No assessment recorded. Plan of Treatment Reminders Order Date Submit Date Provider Last Modified By Organization Details Last Modified Time Details Appointments None recorded. Lab microorgani sm identificat ion, unspecified specimen 2023 024 [place] [facility] ([facility], [address] [place] [address], [place], [address], 14:06:20 Referral primary care provider referral - No PCP; needs to establish, elevated BP, no care for many years, ? cognitive decline 2023 024 Sampson Villarreal Tawanna , [address] [place] [address], [address], 4 13:57:02 Procedures None recorded. Surgeries None recorded. Imaging None recorded. Medication Orders doxycycline hyclate 100 mg capsule 2023 024 [facility], [address] [place], [address], 4 13:50:52 Patient TargetsNo targets recorded. Patient Instructions Encounter Date Encounter Id Patient Instructions Last Modified By Organization Details Last Modified Time 12/13/2023 [id number] specimen collection & handling* CODE[facility] Not available 12/13/2023 15:03:02 Discharge Instructions - Wound Care - Do not shave the infected area. - Use warm compresses (a warm washcloth) three times a day. Do not squeeze the affected area. - Wash the wound gently with soap and warm water once daily. Otherwise keep wound clean, dry and covered with a dressing. - Do not immerse in water, and do not use alcohol or peroxide to clean. Do not use iodine or mercurochrome. - Elevate to decrease pain and improve healing. - Minimize use of affected body part. - Return here or see your doctor for any sign of infection, including redness, swelling, pus or increased pain. - Return for wound check in 2 or 3 days. - If you received a tetanus shot the site may become sore and you may develop a low-grade fever. Take Tylenol if you have fever or pain. Return for a more severe reaction. - See your doctor or return here if not improving in {{1 2 3* 4 5 6 7 8 9 10 11 12 13 1 4}} days. [email or web address] Not available 12/13/2023 13:51:41 Reason for Referral Primary Care Provider Referr al for Elevated blood-pressure reading without diagnosis of hypertension No PCP; needs to establish, elevated BP, no care for many years, ? cognitive decline Referring Physician: Marek Greco, Urgent Care, Encounter Date: 12/13/2023 Results Created Date Observation Date Name Description Value Unit Range Abnormal Flag Note LastModifiedBy Organization Detail LastModifiedTime 12/13/19 24 12/16/2023 AEROB IC BACTE RIAL CULTU RE aerobic bacterial culture FINAL REPORT abnormal Not Available [facility] ([facility]) [address] [facility], [place], [address], 12/16/2023 14:05:53 12/13/19 24 12/16/2023 AEROB IC BACTE RIAL CULTU RE result 1 COMMEN T abnormal Strep tococ cus inter mediu s Light growt h Susce ptibi lity not derrek lly perfo rmed on this organ ism. Not Available [facility] ([facility]) [address] [facility], [place], [address], 12/16/2023 14:05:53 12/13/19 24 12/13/2023 speci men colle ction & handl ing* Completed? Succes sfully Not Available [address] [place] [address], [phone], 12/13/2023 13:57:58 12/13/19 24 12/13/2023 speci men colle ction & handl ing* If unsuccessful , attempts Not Available [id number] [facility] [address] [place], [address], 12/13/2023 13:57:58 12/13/19 24 12/13/2023 speci men colle ction & handl ing* If unsuccessful , location Not Available [address] [facility] [address] [place], [address], 12/13/2023 13:57:58 12/13/19 24 12/13/2023 speci men colle ction & handl ing* Patient declined Not Available [address] [place] [address] [address] [place], [address], 12/13/2023 13:57:58 12/13/19 24 12/13/2023 speci men colle ction & handl ing* List labs declined Not Available [address] [place] [address] [address] [place], [address], 12/13/2023 13:57:58 12/13/19 24 12/13/2023 speci men colle ction & handl ing* Reason labs declined Not Available [address] [place] [address] [place], [address], 12/13/2023 13:57:58 Result Notes None recorded. Problems Name Problem SNOMED Code Status Onset Date Resolution Date Notes Provider Name and Address Organization Details Recorded Time Elevated blood-pressure reading without diagnosis of hypertension 270296911 Active 2023 MAREK GRECO NP [address], [address], [place] - [facility] 13:14:38 Open wound of face 162363214 Active 2023 MAREK GRECO NP [address] [place], [address] [facility] [place] - [facility] 13:25:59 Problem Notes None recorded. Procedures Surgical History Date Name Laterality Status Provider Name and Address Organization Details Recorded Time 12/13/2023 Wound Care UC completed Yareli Shinnston [place] - [facility] 12/13/2023 12:56:21 Imaging Results None recorded. Procedure Notes None recorded. Medical Equipment None Reported. Allergies Allergen ID Allergen Name Allergen Category Reaction Reaction Severity Criticality Documentation Date Start Date Code Code System Note Provider Name and Address Organization Details Recorded Time 232760 Medicinal product containin g penicilli n and acting as antibacte rial agent (product) medicatio n Not available Not available Not available 12/13/2023 17923 05 SNOMED Yareli Shinnston null, [place] - [facility] 12:57:31 Medications Name Sig Start Date Stop Date Status Note LastModified by Organization Details LastModified Time doxycycline hyclate 100 mg capsule Take 1 capsule twice a day by oral route as directed for 10 days, for infection. 2023 active Not Available Not Available Not Avai lable Vitals Date Recorded Body height Oxygen saturation Oxygen saturation in Arterial blood by Pulse oximetry Heart rate Respiratory rate Body temperature Body mass index (BMI) Body weight Systolic blood pressure Diastolic blood pressure Provider Name and Address Organization Details Last Updated DateTime 162.56 cm 99 % 99 % 56 /min 16 /min 97.8 [degF] 25.7 kg/m2 67318.8 6 g 180 mm[Hg] 69 mm[Hg] Yareli Shinnston [place] - [facility] 13:00:42 Social History Question Answer Notes LastModified by Organizat ion Details LastModified Time Tobacco Smoking Status Never Smoker Yareli Shinnston null, [place] - [facility] 12/13/2023 13:00:21 What Is Your Level Of Alcohol Consumption? None Information not available 12/13/2023 Have You Had A Flu Shot This Season? No Information not available 12/13/2023 Have You Recently Traveled Abroad? No Information not available 12/13/2023 Sex: Unknown Functional Status None recorded. Mental Status None recorded. Family History Relationship Description Onset Age of this Age Resolved Age Notes LastModified by Organization Details LastModified Time Father No current problems or disability Not available 12/12 12:58:40 Mother No current problems or disability Not available 12/12 12:58:40 Medical History No medical history recorded. Past Encounters Encounter ID Performer Location Encounter Start Date Encounter Closed Date Diagnosis/Indication Diagnosis SNOMED-CT Code Diagnosis ICD10 [place] [id number] [address] [facility] [place] [address] 12/13/2023 12:18:49 12/13/2023 13:54:14 Elevated blood-pressure reading without diagnosis of hypertension 180836468 R03.0 Open wound of face 57898 9009 S01.80XA Health Concerns Section Related Observation LastModified by Organization Detai ls LastModified Time None Recorded Concern Status LastModified by Organization Details LastModified Time None Recorded Advance Directives Directive None Recorded Payers Encounter Date Sequence Insurance Name Policy Number Policy Wyman Covered Member ID Wyman Member ID Guarantor Name 12/13/2023 1 MEDICARE B-IN: [email or web address] Torito Weber [id number] Torito Weber Notes Date Note Type Note Provider Name and Address Organization Details Recorded Time 12/13/2023 text/html AbscessReported bypatient.Location:[facility] Onset/Timing:gradual Duration:date of onset 12/08/23 Quality:no pain;tenderness;swell ing;redness;drainage Severity:worsening Associated Symptoms:no fever; no red streaking; no chills MAREK GRECO NP [address] [place], [address], [place] - [facility] 12/13/2023 16:11:54
[2024-06-18] MEDS: polyethylene glycoL 3350 17 GM POWD.PACK PO (12:36)
[2024-06-18] MEDS: Docusate Sodium 100 MG CAPSULE PO ×2 (12:36→22:40)
[2024-06-18] MEDS: Tamsulosin HCL 0.4 MG CAPSULE PO (22:40)
[2024-06-18 23:09] LABS: IgA 470 mg/dL (70-320); IgG 667 mg/dL (600-1540); IgM 39 mg/dL (50-300)
[2024-06-19] VITALS (7 sets, daily range): BP systolic 99–127; BP diastolic 48–63; PULSE 63–79; RESP 16–18; TEMP 36.6–37.2; O2SAT 95–98
[2024-06-19 06:14] LABS: Hematocrit 29.8 % (42.0-52.0); Hemoglobin 10.2 g/dl (14.0-18.0); Mean Corpuscular HGB Conc 34.2 g/dl (31.0-36.0); Mean Corpuscular Hemoglobin 30.6 pg (27.0-33.0); Mean Corpuscular Volume 89.5 fL (80.0-98.0); Mean Platelet Volume 10.2 fL (9.4-12.4); Platelet Count 142 X10*3/uL (160-400); Red Blood Count 3.33 X10*6/uL (4.60-5.80); Red Cell Distribution Width 14.3 % (11.0-16.0)
[2024-06-19 06:29] LABS: Anion Gap 13 (12-20); Blood Urea Nitrogen 37 mg/dL (9-16); Calcium 8.4 mg/dL (8.4-10.2); Carbon Dioxide 22 mmol/L (22-29); Chloride 108 mmol/L (96-108); Creatinine Clr Calc Pharmacy 62.6; Estimated Glomerular Filt Rate > 60; Glucose Random 112 mg/dL (60-115); Potassium 4.2 mmol/L (3.3-5.1); Sodium 139 mmol/L (135-145)
[2024-06-19] MEDS: ceFAZolin Sodium 1 GM VIAL 2 GM IVPUSH ×2 (06:29→17:22)
[2024-06-19 06:35] LABS: Atypical Lymph Absolute Manual 0.2 x10*3/uL; Atypical Lymphs Percent Manual 1 % (0-6); Band Neutrophils Percent 1 % (3-5); Basophils Abs Manual 0.2 X10*3/uL (0.0-0.2); Basophils Percent Manual 1 % (0-2); Eosinophils Absolute Manual 0.8 X10*3/uL (0.0-0.4); Eosinophils Percent Manual 5 % (0-4); Lymphocytes Absolute Manual 2.1 X10*3/uL (1.2-4.9); Lymphocytes Percent Manual 13 % (20-40); Metamyelocytes Absolute 0.2 X10*3/uL; Metamyelocytes Percent 1 %; Monocytes Absolute Manual 1.4 X10*3/uL (0.1-1.2); Monocytes Percent Manual 9 % (2-11); Neutrophils Absolute Manual 11.2 X10*3/uL (2.0-8.3); Neutrophils Percent Manual 69 % (45-73)
[2024-06-19 06:36] LABS: Acanthocytes 1+ (0-2) /OIF; Platelet Estimate NORMAL (NORMAL); Platelet Morphology Comment NORMAL; Polychromasia 1+ (0-2) /OIF; RBC Morphology NOTED
[2024-06-19] MEDS: Enoxaparin Sodium 40 MG/0.4 ML SYRINGE SUBCUT (08:49)
[2024-06-19] MEDS: Finasteride 5 MG TABLET PO (08:50)
[2024-06-19] MEDS: 0.9 % Sodium Chloride Flush 3 ML SYRINGE IVFLUSH ×2 (08:50→17:23)
[2024-06-19] MEDS: polyethylene glycoL 3350 17 GM POWD.PACK PO (08:50)
[2024-06-19] MEDS: Docusate Sodium 100 MG CAPSULE PO (08:50)
[2024-06-19] MEDS: Celecoxib 100 MG CAPSULE PO (08:50)
--- NOTE | 2024-06-19 11:15 | MHC.CM.PN ---
Addendum entered by Mercedes Monsivais 06/19/24 13:52: [facility] WILL ACCEPT WITH NO PAYMENT IN ADVANCE PT IS AWARE HE WILL BE BILLED LATER BLS TRANSPORT BOOKED WITH [facility] FOR [address] IN [address] AND REPORT AVAILABLE Addendum entered by Mercedes Monsivais 06/19/24 12:02: [facility] HAS INDICATED PT WILL HAVE COPAYS FOLLOWS: $20/ DAY FOR DAYS 1-20 AND $80/DAY FOR DAYS 21-44. PT STATES HE CANNOT AFFORD THESE COPAYS, HE WOULD BE WILLING TO WORK OUT A PAYMENT PLAN, HOWEVER [facility] WANTS MONEY UP FRONT MORE REFERRALS MADE TO DETERMINE IF ANYONE CAN ACCEPT WITHOUT COPAYS OR UP FRONT PAYMENT Original Note: PT HAS ACCEPTED A BED OFFER FROM [facility] CM REQUESTED THEY SUBMIT FOR AUTH
[2024-06-19 12:33] LABS: Prot Elec - Albumin 2.8 g/dL (3.8-4.8); Prot Elec - Alpha1 0.4 g/dL (0.2-0.3); Prot Elec - Alpha2 0.6 g/dL (0.5-0.9); Prot Elec - Beta 1 0.3 g/dL (0.4-0.6); Prot Elec - Beta 2 0.4 g/dL (0.2-0.5); Prot Elec - Gamma 0.6 g/dL (0.8-1.7); Prot Elec - Total Protein 5.1 g/dL (6.1-8.1)
--- NOTE | 2024-06-19 15:11 | PM.DS ---
DS: Providers Provider Date of Service: 06/19/24 Date of admission: 06/14/24 01:52 Date of discharge: 06/19/24 Primary care physician: Unknown Physician Consults: 06/14/24 07:21 Consult to Infectious Diseases Routine Consulting Provider[place] [facility] Reason for consultation: gpc blood 06/17/24 13:40 Consult to Orthopedics Routine Consulting Provider: [facility] Reason for consultation: bacteremia, left knee pain and swelling DS: Diagnosis Discharge Diagnosis (1) Effusion, left knee: Status: Acute (2) UTI (urinary tract infection): Status: Acute (3) Sepsis: Status: Acute (4) Endocarditis due to methicillin susceptible Staphylococcus aureus (MSSA): Status: Acute DS: Summary Hospital Course Hospital Course: Admission note HPI Torito Weber is 83 years old man with past medical history significant for benign hemangioma of the liver and BPH was brought to the emergency department after he sustained a fall. It seems like he was at the top of the stairs and took his shoes off sliding down the stairs on his blood. He did not report any headache, palpitations or dizziness. He also denied any acute cardiopulmonary or gastrointestinal symptoms. He denied any pain. He did not report any acute urinary symptoms. He has a fever but he is not aware of it. Recently, the patient was hospitalized and was discharged on June 07. He was hospitalized due to hematuria requiring Mendez placement and CBI. The Mendez was removed. He is not on blood thinners. In the ED, he was found to have fever (max 104.3). There is no tachycardia or hypotension. Blood workup was remarkable for leukocytosis of 18.4, hemoglobin of 12.1 and platelets 116. There was lactic acidosis of 3.4 for that normalized, most recent lactic acid is 1.0. There are no significant electrolyte imbalances. BUN is 30 and creatinine 1.12. LFTs are normal except for a slight elevation of AST. Urinalysis consistent with urinary tract infection. Viral testing for COVID-19, influenza and RSV is negative. CXR showed bronchial wall thickening may be infection and/or infectious in etiology, irregular enlarged heterogeneous predominantly lucent lesion in the left proximal humerus. Abdomen pelvis CT scan showed urinary bladder wall thickening, prominent bilateral renal collecting system likely related to outlet obstruction, suspected renal infarct suspected splenic infarct and prominent fluid-filled small bowel loops may be seen with enteritis and bibasilar lung opacities likely atelectasis associated with the minimal left pleural effusion. Hospital course The patient was treated for the following # Sepsis due to MSSA endocarditis and UTI Treated with ancef 2gm q8, 6 weeks from negative culture 06/17 as Echo showing likely Aortic valce changes with mobile mass. no indication for surgery at this time as no signs of heart failure. Seen by ID specialist who recommended 6 weeks of IV Cefazoline 2 gm Q8 hours. # BPH with chronic Mendez and MSSA UTI. Treated with IV antibiotics. Continue Flomax and finasteride # Lesion and proximal humerus, Possibly related to endocarditis, SPEP&UPEP done with no monoclonal protein detected. IgA elevated likely a result of chronic infection with Endocarditis. will need to repeat as outpatient after he finishes treatment for the infection. # Age indeterminate splenic and right renal infarct, likely Related to endocarditis. no further work up needed at this point. kidney function preserved # Thyroid nodule. CT incidentally reported Thyroid nodule of 1.5 cm needs to be followed by PCP for further work up with ultrasound if needed # Urine retention. Bladder scan showed >500cc but he was able to pass urine on his own. Voiding trial at facility, if fails can place a Mendez at SNF. Discharge plan Cefazolin for 40 more days for treatment of infective endocarditis Celebrix for the next 10 days, keep the YIMI wrap for the left knee YIMI wrap for compression , WBAT Thyroid nodule of 1.5 cm needs to be followed by PCP for further work up with ultrasound if needed Time Attestation Discharge Coordination Time (in mins): 43 Quality: Safe Use of Opioids Does Pt have an Active Cancer Diagnosis on the Problem List?: No Quality: Stroke Does the patient have a stroke diagnosis?: No Physical Exam Vital Signs: Vital Signs: Last Vital Signs Temp 97.8 F 06/19/24 12:00 Pulse 72 06/19/24 12:00 Resp 18 06/19/24 12:00 BP 115/55 L 06/19/24 12:00 Pulse Ox 95 06/19/24 12:00 O2 Del Method Room Air 06/19/24 12:00 O2 Flow Rate 97 06/18/24 20:00 BMI result Body Mass Index 21.5 Const: Other: Constitutional : Awake, interactive, not in distress Neck : Normal inspection, Supple Cardiovascular : RRR, no JVP, no lower extremity edema Respiratory : good bilateral air entry, no crackles, wheezes or rhonchi Gastrointestinal: soft, lax, Normal bowel sounds, Non tender Skin : Warm, Dry. left knee less swollen, less tenderness, no redness Neurological : Alert & oriented x3, No focal deficit DS: Data Data Completed and Pending Completed studies during hospitalization [Text1]: Procedures Excision of Prostate, Via Natural or Artificial Opening Endoscopic (01/16/21) Extirpation of Matter from Bladder, Via Natural or Artificial Opening Endoscopic (01/16/21) Transfusion of Nonautologous Red Blood Cells into Peripheral Vein, Percutaneous Approach (01/16/21) Labs on day of discharge: Laboratory Results - last 24 hr 06/15/24 06/19/24 05:40 05:49 WBC 16.0 H RBC 3.33 L Hgb 10.2 L Hct 29.8 L MCV 89.5 MCH 30.6 MCHC 34.2 RDW 14.3 Plt Count 142 L D MPV 10.2 Immature Gran % (Auto) Cancelled Neut % (Auto) Cancelled Lymph % (Auto) Cancelled [place] % (Auto) Cancelled Eos % (Auto) Cancelled Baso % (Auto) Cancelled Lymph # (Auto) Cancelled [place] # (Auto) Cancelled Eos # (Auto) Cancelled Baso # (Auto) Cancelled Abs Immat Gran (auto) Cancelled Absolute Neuts (auto) Cancelled Absolute Nucleated RBC 0.000 Nucleated RBC % (auto) 0.0 Neutrophils % (Manual) 69 Band Neutrophils % 1 L Lymphocytes % (Manual) 13 L Atypical Lymphs % (Man) 1 Monocytes % (Manual) 9 Eosinophils % (Manual) 5 H Basophils % (Manual) 1 Metamyelocytes % 1 Abs Neuts (Manual) 11.2 H Lymphocytes # (Manual) 2.1 Atyp Lymphs # (Manual) 0.2 Monocytes # (Manual) 1.4 H Eosinophils # (Manual) 0.8 H Basophils # (Manual) 0.2 Metamyelocytes # 0.2 Platelet Estimate NORMAL Plt Morphology Comment NORMAL RBC Morphology NOTED Polychromasia 1+ (0-2) Acanthocytes (Spur) 1+ (0-2) Sodium 139 Potassium 4.2 Chloride 108 Carbon Dioxide 22 Anion Gap 13 BUN 37 H Creatinine 0.84 Estim Creat Clear Calc 62.6 Estimated GFR > 60 Random Glucose 112 Calcium 8.4 Total Protein (PEP) 5.1 L Albumin (PEP) 2.8 L Ywdsx-0-Kjpsdojac 0.4 H Oyqzz-0-Ubybeghhu 0.6 Ftut-0-Fznjwjkf 0.3 L Yibe-8-Oyirvrdp 0.4 Gamma Globulins 0.6 L PEP Interpretation SEE NOTE IgG Total 667 IgA Total 470 H IgM 39 L EDITH Interpretation SEE NOTE Preliminary micro results at discharge 06/17/24 07:36 Blood Culture - Preliminary Blood - Venous No growth after 48 hours. 06/17/24 07:42 Blood Culture - Preliminary Blood - Venous No growth after 48 hours. Imaging Chest x-ray: Radiologist's impression: ITS Impressions Cervical Spine CT 06/13/24 18:51 IMPRESSION: 1. No evidence of acute intracranial hemorrhage or edematous territorial infarction. 2. Moderate underlying microangiopathy and generalized cerebral volume loss. 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 3. No evidence of acute fracture or traumatic subluxation of the cervical spine. Moderate multilevel degenerative spondyloarthropathy of the cervical spine. 4. There is a 1.5 cm hypoattenuating lesion in the posterior aspect of the left thyroid lobe. Recommend further characterization with thyroid ultrasound. Electronically signed by: Solo Canas DO 06/13/2024 08:02 PM EST RP Head CT 06/13/24 18:51 IMPRESSION: 1. No evidence of acute intracranial hemorrhage or edematous territorial infarction. 2. Moderate underlying microangiopathy and generalized cerebral volume loss. 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 3. No evidence of acute fracture or traumatic subluxation of the cervical spine. Moderate multilevel degenerative spondyloarthropathy of the cervical spine. 4. There is a 1.5 cm hypoattenuating lesion in the posterior aspect of the left thyroid lobe. Recommend further characterization with thyroid ultrasound. Electronically signed by: Solo Canas DO 06/13/2024 08:02 PM EST RP Abdomen/Pelvis CT 06/13/24 19:44 IMPRESSION: 1. Significant urinary bladder wall thickening with some hypodense areas along the posterior urinary bladder wall. Correlation with urinalysis needed. 2. Prominent bilateral renal collecting systems likely related to outlet obstruction. 3. Wedge-shaped defect lower pole right kidney not seen on prior. Renal infarct suspected. 4. Small hypodensity extending through the superior aspect of the spleen not seen previously. This could be secondary to a splenic infarct. 5. Stable left adrenal nodule. 6. Stable hepatic mass. 7. Rectal wall thickening with rectal tube in place. 8. Prominent fluid-filled small bowel loops may be seen with enteritis. Correlation needed. 9. Bibasilar lung opacities likely atelectasis associated with a minimal left pleural effusion. Fleischner guidelines were followed. Electronically signed by: Jose Elias Rodarte MD 06/14/2024 01:17 AM EST RP Chest X-Ray 06/13/24 19:50 IMPRESSION: 1. Bronchial wall thickening may be infectious and/or inflammatory in etiology. 2. Irregular enlarged heterogenous predominantly lucent lesion in the left proximal humerus. Electronically signed by: Alexa Aldana MD 06/13/2024 08:53 PM EST RP Knee X-Ray 06/17/24 16:10 IMPRESSION: Tricompartmental osteoarthritis, most severe within the medial compartment. Moderate joint effusion. Electronically signed by: Thomas Tran MD 06/17/2024 05:53 PM EST RP Discharge Plan Discharge Anticipated Discharge Date/Time: 06/19/24 14:43 Patient Disposition: Xfer [facility] Discharge Diagnosis: MSSA Endocarditis\Bacteremia Referrals: Physician,Unknown J [Primary Care Provider] - 1 Week Discharge Medications: New cefazolin 1 gram Recon Soln 2 g IVPUSH Q8H 40 Days Qty: 120 0RF celecoxib 100 mg Capsule 100 mg PO BIDWM Qty: 20 0RF Continued Multi-Vitamin & Mineral Complex Powder powder 16 g PO DAILY Osteo Fx powder 12.7 g PO DAILY tamsulosin 0.4 mg Capsule 0.4 mg PO BEDTIME 90 Days Qty: 90 0RF finasteride 5 mg Tablet 5 mg PO DAILY 90 Days Qty: 90 0RF Discharge Orders: Discharge Order (Routine); Ordered 06/19/24 Ordered By: Elizabeth Turner Diet: Advance to usual diet Activity on Discharge: As tolerated Stand Alone Forms: Patient Portal Discharge page Print Language: Maltese Care Plan Goals: Cefazolin for 40 more days for treatment of infective endocarditis Celebrix for the next 10 days, keep the YIMI wrap for the left knee YIMI wrap for compression , WBAT Thyroid nodule of 1.5 cm needs to be followed by PCP for further work up with ultrasound if needed Health Concerns: Endocarditis Left knee osteoarthritis Plan of Treatment: Antibiotics Anti-inflammatory YIMI wrap Assessment: as above
--- NOTE | 2024-06-19 17:18 | HO.PICC ---
PICC Line Insertion NPICC Diagnosis: endocarditis Indication: nursing home ABT Pertinent Labs: reviewed Technique: Following informed consent including risks, benefits and alternatives and using sterile technique including cap and mask, sterile gown, glove and drape, the right arm was prepped and draped in the usual sterile fashion of full barrier technique with CHG. Following completion of [place] Protocol the skin and soft tissues were anesthetized with 1% Lidocaine plain. Using ultrasound guidance, right basilic vein access was obtained. Over an 0.018 wire through peel-away sheath, a 4fr single lumen PASV PICC line was positioned. Catheter length is 39cm internal length, 0cm external length, for a total trimmed length of 39cm. The procedure was performed in room 272. Tip verification was performed by Nereyda Yang with Sherlock 3CG. Tip located in SVC. Ultrasound was used to document vein patency and for needle entry. A formal ultrasound picture and cardiac rhythm strip was recorded. [employer] Engineer has released the line for use and it is currently dressed with a StatLock, Tegaderm, and CHG disc. Verification has been performed for blood return and line patency. Arm Circumference: 29cm Equipment: [employer] POWERPICC SOLO catheter with Sherlock 3CG Tip Catheter Type: 4FR single lumen PASV Lot #: [id number]
--- NOTE | 2024-06-19 17:19 | PC.NURSE ---
PICC Line info faxed and copy made to be sent with d/c paperwork for SNF given to EMS.
--- NOTE | 2024-06-19 18:38 | PC.NURSE ---
All paperwork printed and given to EMS to bring to SNF.
== END 2024-06-19 18:39 | disposition skilled nursing facility (03) | DRG 871 ==
LOC: HO.ED 20:06 → HO.EDOVER 06-14 02:11 → HO.S3 06-14 04:53
PROVIDERS: Internal Medicine; Physician Assistant; Admitting Provider Internal Medicine; Emergency Provider Emergency Medicine; Visit Provider Student in an Organized Health Care Education/Training Program
DX: A41.01 Sepsis due to Methicillin susceptible Staphylococcus aureus (principal); I33.0 Acute and subacute infective endocarditis; N39.0 Urinary tract infection, site not specified; N28.0 Ischemia and infarction of kidney; D73.5 Infarction of spleen; M89.9 Disorder of bone, unspecified; M25.462 Effusion, left knee; N40.1 Benign prostatic hyperplasia with lower urinary tract symptoms; E04.1 Nontoxic single thyroid nodule; R33.8 Other retention of urine; Z96.0 Presence of urogenital implants; Z20.822 Contact with and (suspected) exposure to COVID-19; Z87.891 Personal history of nicotine dependence; Z79.899 Other long term (current) drug therapy
CPT/HCPCS: 0241U; 36415; 36573; 70450; 71045; 72125; 73562; 74177; 80048; 80053; 80202; 80307; 81001; 82550; 82570; 82784; 83605; 83690; 84156; 84165; 84166; 84443; 85007; 85025; 85027; 86334; 86335; 87040; 87077; 87086; 87088; 87147; 87186; 87205; 93005; 93306; 97110; 97116; 97162; 99285; C1751; J0690; J0696; J1644; J1650; J3371; J7120; P9047; Q9967

== ENCOUNTER → 2024-06-13 18:32 | Outpatient (BNV) | payer MEDICARE, SELFPAY | PROVIDERS: Admitting Provider Internal Medicine; Emergency Provider Emergency Medicine; Visit Provider Internal Medicine Cardiovascular Disease | DX: R53.1 Weakness (principal) | CPT/HCPCS: 93010 ==

== ENCOUNTER 2024-06-14 01:52 | Outpatient (BNV) | payer MEDICARE, SELFPAY | END 2024-06-16 07:00 | PROVIDERS: Admitting Provider Internal Medicine; Emergency Provider Emergency Medicine; Visit Provider Internal Medicine Cardiovascular Disease | DX: I35.8 Other nonrheumatic aortic valve disorders (principal); I34.81 Nonrheumatic mitral (valve) annulus calcification; I36.1 Nonrheumatic tricuspid (valve) insufficiency | CPT/HCPCS: 93306 ==

== ENCOUNTER → 2024-06-14 01:52 | Outpatient (BNV) | payer MEDICARE, SELFPAY | PROVIDERS: Admitting Provider Internal Medicine; Emergency Provider Emergency Medicine; Visit Provider Internal Medicine | DX: A41.9 Sepsis, unspecified organism (principal) | CPT/HCPCS: 99223; 99232; 99233; 99499 ==

== ENCOUNTER → 2024-06-14 01:52 | Outpatient (BNV) | payer MEDICARE, SELFPAY | PROVIDERS: Admitting Provider Internal Medicine; Emergency Provider Emergency Medicine; Visit Provider Physician Assistant | DX: M25.462 Effusion, left knee (principal) | CPT/HCPCS: 99221 ==

== ENCOUNTER → 2024-06-14 01:52 | Outpatient (BNV) | payer MEDICARE, SELFPAY | PROVIDERS: Admitting Provider Internal Medicine; Emergency Provider Emergency Medicine; Visit Provider Internal Medicine | DX: N30.00 Acute cystitis without hematuria (principal); N40.0 Benign prostatic hyperplasia without lower urinary tract symptoms; A41.9 Sepsis, unspecified organism | CPT/HCPCS: 99222 ==